=== PATIENT | female | born 1990 | race Caucasian/White ===

== ENCOUNTER 2017-01-27 09:28 | Emergency (ER) | payer OTHER ==
[2017-01-27] MEDS ORDERED: Sodium Chloride 0.9% 1000 ML 1,000 ML IV STA (09:49)
[2017-01-27] MEDS ORDERED: Sodium Chloride 0.9% 1000 ML 1,000 ML ONE (09:52)
--- NOTE | 2017-01-27 10:08 | ERPHSYRPT ---
- History of Present Illness Time Seen by Provider: 01/27/17 09:45 Source: patient, family (boyfriend) Patient Subjective Stated Complaint: pt co headache for 2 weeks, worse today with n/v,vomited x2 , frontal and neck pain, no injury, states has never had a headache like this, took tylenol Triage Nursing Assessment: pt alert, walked in, resp easy, skin w/d, holding head, Physician History: CC: headache Hx: 26 y/o patient of Dr Lantigua. She reports some headaches for the past 2 weeks. Sometimes right visual difficulty. No fever or chills. She has nausea. She is late on menses and worried she might be . She took home test which was negative. She has been using APAP which has not helped headaches. Headache worse today significantly. No N/T/W. Legs feel like jello. Severity: moderate Allergies/Adverse Reactions: tylenol Adverse Reaction (Uncoded 01/27/17 09:39) only liquid form Home Medications: No Reportable Medications [No Reported Medications] 01/27/17 [History] Hx Tetanus, Diphtheria Vaccination/Date Given: No Hx Influenza Vaccination/Date Given: No Hx Pneumococcal Vaccination/Date Given: No Immunizations Up to Date: Yes - Review of Systems Constitutional: Malaise, No Fever, No Chills Eyes: Vision Changes Ears, Nose, & Throat: No Symptoms Respiratory: No Symptoms Cardiac: No Chest Pain Abdominal/Gastrointestinal: Nausea, Vomiting (X2), No Abdominal Pain Skin: No Rash Neurological: Headache, No Dizziness, No Focal Weakness, No Parasthesia All Other Systems: Reviewed and Negative - Past Medical History Pertinent Past Medical History: Yes Neurological History: No Pertinent History ENT History: No Pertinent History Cardiac History: No Pertinent History Respiratory History: Asthma Endocrine Medical History: No Pertinent History Musculoskeletal History: No Pertinent History GI Medical History: No Pertinent History History: No Pertinent History Psycho-Social History: Depression Female Reproductive Disorders: Other Other Medical History: ovarian cyst - Past Surgical History Past Surgical History: Yes Neuro Surgical History: No Pertinent History Cardiac: No Pertinent History Respiratory: No Pertinent History Gastrointestinal: No Pertinent History Genitourinary: No Pertinent History Musculoskeletal: No Pertinent History Female Surgical History: No Pertinent History Other Surgical History: TONSILLECTOMY - Social History Smoking Status: Current every day smoker How long have you smoked: 1 Exposure to second hand smoke: Yes Drug Use: none Patient Lives Alone: No - Female History Hx Last Menstrual Period: december 21 Hx Now: Yes (36 WKS) - Nursing Vital Signs Nursing Vital Signs: Initial Vital Signs Temperature 97.9 F Pulse Rate 79 Respiratory Rate 14 Blood Pressure [Right Arm] 138/78 Pain Intensity 7 - Physical Exam General Appearance: alert Eye Exam: PERRL/EOMI Ears, Nose, Throat Exam: normal ENT inspection, moist mucous membranes Neck Exam: normal inspection, non-tender, supple, No meningismus Respiratory Exam: normal breath sounds, lungs clear Cardiovascular Exam: regular rate/rhythm, No murmur Gastrointestinal/Abdomen Exam: soft, No tenderness, No distention Extremity Exam: normal inspection, normal range of motion Neurologic Exam: alert, 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, cooperative, sensation nml, No motor deficits Skin Exam: warm, dry, No rash SpO2 Interpretation: normal SpO2: 97 Oxygen Delivery: Room Air - Course Nursing assessment & vital signs reviewed: Yes Ordered Tests: Active Orders 24 hr Category Date Time Status IV Insertion STAT Care 01/27/17 09:49 Active CBC W DIFF Stat Lab 01/27/17 10:10 Completed HCG QUALITATIVE,SERUM Stat Lab 01/27/17 10:10 Completed VENOUS BLOOD GAS Urgent Lab 01/27/17 10:10 Completed Medication Summary Discontinued Medications Generic Name Dose Route Start Last Admin Trade Name Berny PRN Reason Stop Dose Admin Diphenhydramine HCl 25 mg 01/27/17 10:48 01/27/17 10:58 Benadryl 50 Mg/Ml IV 01/27/17 10:49 25 mg STAT ONE Administration Diphenhydramine HCl Confirm 01/27/17 10:53 Benadryl 50 Mg/Ml Administered 01/27/17 10:54 Dose 50 mg .ROUTE .STK-MED ONE Sodium Chloride 1,000 mls @ 999 mls/hr 01/27/17 09:49 01/27/17 10:17 Sodium Chloride 0.9% 1000 Ml IV 01/27/17 10:49 999 mls/hr .[id number] STA Administration Sodium Chloride Confirm 01/27/17 09:52 Sodium Chloride 0.9% 1000 Ml Administered 01/27/17 09:53 Dose 1,000 mls @ ud .ROUTE .STK-MED ONE Ketorolac Tromethamine 30 mg 01/27/17 10:48 01/27/17 10:58 Toradol 30 Mg Injection IV 01/27/17 10:49 30 mg STAT ONE Administration Ketorolac Tromethamine Confirm 01/27/17 10:52 Toradol 30 Mg Injection Administered 01/27/17 10:53 Dose 30 mg .ROUTE .STK-MED ONE Metoclopramide HCl 10 mg 01/27/17 10:48 01/27/17 10:58 Reglan 10 Mg/2 Ml IV 01/27/17 10:49 10 mg STAT ONE Administration Metoclopramide HCl Confirm 01/27/17 10:53 Reglan 10 Mg/2 Ml Administered 01/27/17 10:54 Dose 10 mg .ROUTE .STK-MED ONE Lab/Rad Data: Laboratory Result Diagrams 01/27/17 10:10 Laboratory Results 01/27/17 01/27/17 01/27/17 Range/Units 10:10 10:10 10:10 WBC 11.6 H (4.0-10.5) K/mm3 RBC 5.33 (4.1-5.4) M/mm3 Hgb 15.7 (12.0-16.0) gm/dl Hct 46.7 (35-47) % MCV 87.6 (78-100) fl MCH 29.5 (26-32) pg MCHC 33.6 (32-36) g/dl RDW 13.3 (11.5-14.0) % Plt Count 228 (150-450) K/mm3 MPV 11.9 H (6-9.5) fl Gran % 72.5 H (36.0-66.0) % Lymphocytes % 17.7 L (24.0-44.0) % Monocytes % 6.6 (0.0-12.0) % Eosinophils % 2.9 (0.00-5.0) % Basophils % 0.3 (0.0-0.4) % Basophils # 0.04 (0-0.4) VBG pH 7.35 (7.32-7.42) VBG pCO2 at Pat Temp 51 (42-55) mm/Hg VBG pO2 at Pat Temp 31 (25-40) mm/Hg VBG HCO3 28.2 H (22-28) meq/L VBG O2 Sat (Felecia) 67.2 L (95-100) VBG Base Excess 1.4 (-2.0-2.0) VBG Hemoglobin 16.2 VBG Carboxyhemoglobin 3.0 (0.0-6.9) % T HGB POC Potassium 3.9 (3.5-5.1) Serum , Qual NEGATIVE (Negative) - Progress Progress Note: 01/27/17 11:43 Pt improved with IVF, benadryl, toradol, and reglan. She has supple neck. SAH not suspected. No sign of infection. Ambulated to BR. Drinking sprite. Nontoxic appearing. Informed negative HCG. Advised follow up with Dr Lantigua this week. Counseled pt/family regarding: lab results, diagnosis, need for follow-up - Departure Time of Disposition: 11:43 Departure Disposition: Home Clinical Impression: Headache, Missed menses Condition: Stable Critical Care Time: No Referrals: MUNA LANTIGUA MD [Primary Care Provider] - Instructions: Headache Additional Instructions: Rest and no driving today and stay with family. Return for fever, confusion, worsened headache or concerns. Follow up with Dr Lantigua this week.
[2017-01-27 10:14] LABS: VBG BASE EXCESS 1.4 (-2.0-2.0); VBG HCO3- 28.2 meq/L (22-28); VBG HEMOGLOBIN 16.2; VBG O2 SATURATION 67.2 (95-100); VBG POTASSIUM 3.9 (3.5-5.1); VBG pH 7.35 (7.32-7.42)
[2017-01-27 10:16] LABS: BASOPHIL % 0.3 % (0.0-0.4); Eosinophil % 2.9 % (0.00-5.0); Granulocytes % 72.5 % (36.0-66.0); Lymphocytes % 17.7 % (24.0-44.0); Mean Cell Volume 87.6 fl (78-100); Mean Corpuscular Hemoglobin 29.5 pg (26-32); Mean Platelet Volume 11.9 fl (6-9.5); Monocytes % 6.6 % (0.0-12.0); Platelet Count 228 K/mm3 (150-450); Red Blood Count 5.33 M/mm3 (4.1-5.4); Red Cell Distribution Width 13.3 % (11.5-14.0); White Blood Count 11.6 K/mm3 (4.0-10.5)
[2017-01-27] MEDS ORDERED: BENADRYL 50 MG/ML IV ONE (10:48)
[2017-01-27] MEDS ORDERED: TORAdol 30 mg Injection IV ONE (10:48)
[2017-01-27] MEDS ORDERED: Reglan 10 MG/2 ML IV ONE (10:48)
[2017-01-27] MEDS ORDERED: TORAdol 30 mg Injection ONE (10:52)
[2017-01-27] MEDS ORDERED: BENADRYL 50 MG/ML ONE (10:53)
[2017-01-27] MEDS ORDERED: Reglan 10 MG/2 ML ONE (10:53)
[2017-01-27 11:53] VITALS: BP 119/63; PULSE 69; O2SAT 100
== END 2017-01-27 11:52 | disposition home or self-care (01) ==
LOC: ED 09:28
DX: R51 Headache (principal); N91.2 Amenorrhea, unspecified
CPT/HCPCS: 36000; 36415; 82805; 84703; 85025; 96360; 96374; 96375; 99284; J1200; J1885

== ENCOUNTER 2017-01-31 18:54 | Emergency (ER) | payer OTHER ==
--- NOTE | 2017-01-31 19:19 | ERPHSYRPT ---
- History of Present Illness Time Seen by Provider: 01/31/17 19:05 Source: patient Exam Limitations: no limitations Physician History: FOUR DAYS AGO PT STARTED WITH A DIFFUSE HEADACHE AND VOMITING X2 WITHOUT BLOOD AND NO RIGHT PERIPHERAL VISION. YESTERDAY PT'S RIGHT HAND WAS NUMB FOR ABOUT 5 MINUTES. PT DENIES CHEST PAIN, SHORTNESS OF AIR, ABDOMINAL PAIN. THIS AFTERNOON PT HAD AN MRI OF THE BRAIN WHICH SHOWED POSSIBLE LEFT VERTEBRAL ARTERY DISSECTION. Allergies/Adverse Reactions: tylenol Adverse Reaction (Uncoded 01/27/17 09:39) only liquid form Home Medications: No Reportable Medications [No Reported Medications] 01/27/17 [History] Hx Tetanus, Diphtheria Vaccination/Date Given: No Hx Influenza Vaccination/Date Given: No Hx Pneumococcal Vaccination/Date Given: No - Review of Systems Constitutional: No Fever Eyes: Vision Changes Respiratory: No Cough, No Dyspnea Cardiac: No Chest Pain Abdominal/Gastrointestinal: Vomiting, No Abdominal Pain Neurological: Headache All Other Systems: Reviewed and Negative - Past Medical History Pertinent Past Medical History: Yes Neurological History: No Pertinent History ENT History: No Pertinent History Cardiac History: No Pertinent History Respiratory History: Asthma Endocrine Medical History: No Pertinent History Musculoskeletal History: No Pertinent History GI Medical History: No Pertinent History History: No Pertinent History Psycho-Social History: Depression Female Reproductive Disorders: Other Other Medical History: ovarian cyst - Past Surgical History Past Surgical History: Yes Neuro Surgical History: No Pertinent History Cardiac: No Pertinent History Respiratory: No Pertinent History Gastrointestinal: No Pertinent History Genitourinary: No Pertinent History Musculoskeletal: No Pertinent History Female Surgical History: No Pertinent History Other Surgical History: TONSILLECTOMY - Social History Smoking Status: Current every day smoker How long have you smoked: 1 Exposure to second hand smoke: Yes Drug Use: none Patient Lives Alone: No - Female History Hx Now: Yes (36 WKS) - Nursing Vital Signs Nursing Vital Signs: Initial Vital Signs Temperature 98.0 F Temperature Source Oral Pulse Rate 83 Respiratory Rate 16 Blood Pressure [Right Arm] 130/74 Pain Intensity 0 - Physical Exam General Appearance: alert Eye Exam: PERRL/EOMI, eyes nml inspection, other (GOOD PERIPHERAL VISION BILATERALLY) Ears, Nose, Throat Exam: pharynx normal, moist mucous membranes Neck Exam: normal inspection, full range of motion, No carotid bruit Respiratory Exam: normal breath sounds, lungs clear Cardiovascular Exam: normal heart sounds Gastrointestinal/Abdominal Exam: soft, normal bowel sounds Back Exam: normal range of motion Extremity Exam: normal inspection, normal range of motion Mental Status Exam: alert, 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, cooperative 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 animal 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 Exam: normal hearing, normal speech, PERRL, tongue midline, No facial droop Motor/Sensory Exam: no motor deficit, no sensory deficit, negative Babinski's sign Skin Exam: warm, dry - Course Nursing assessment & vital signs reviewed: Yes Ordered Tests: Active Orders 24 hr Category Date Time Status IV Insertion STAT Care 01/31/17 19:23 Active AMYLASE Stat Lab 01/31/17 19:35 Received CBC W DIFF Stat Lab 01/31/17 19:35 Completed CMP Stat Lab 01/31/17 19:35 Received HCG QUALITATIVE,SERUM Stat Lab 01/31/17 19:35 Received LIPASE Stat Lab 01/31/17 19:35 Received PROTIME WITH INR Stat Lab 01/31/17 19:35 Received PTT Stat Lab 01/31/17 19:35 Received UA Stat Lab 01/31/17 19:23 Ordered Medication Summary Generic Name Dose Route Start Last Admin Trade Name Freq PRN Reason Stop Dose Admin Sodium Chloride 1,000 mls @ 80 mls/hr 01/31/17 19:30 01/31/17 19:48 Sodium Chloride 0.9% 1000 Ml IV 03/02/17 19:29 80 mls/hr .[id number] PREET Administration Discontinued Medications Generic Name Dose Route Start Last Admin Trade Name Freq PRN Reason Stop Dose Admin Labetalol HCl 5 mg 01/31/17 19:49 Trandate 20 Mg/5 Ml Syringe IV 01/31/17 19:50 STAT ONE Labetalol HCl Confirm 01/31/17 19:50 Trandate 20 Mg/5 Ml Syringe Administered 01/31/17 19:51 Dose 20 mg IV .STK-MED ONE Lab/Rad Data: Laboratory Result Diagrams 01/31/17 19:35 Laboratory Results 01/31/17 Range/Units 19:35 WBC 13.6 H (4.0-10.5) K/mm3 RBC 5.36 (4.1-5.4) M/mm3 Hgb 15.8 (12.0-16.0) gm/dl Hct 46.7 (35-47) % MCV 87.1 (78-100) fl MCH 29.5 (26-32) pg MCHC 33.8 (32-36) g/dl RDW 13.2 (11.5-14.0) % Plt Count 293 (150-450) K/mm3 MPV 11.7 H (6-9.5) fl Gran % 68.2 H (36.0-66.0) % Lymphocytes % 23.7 L (24.0-44.0) % Monocytes % 4.9 (0.0-12.0) % Eosinophils % 2.9 (0.00-5.0) % Basophils % 0.3 (0.0-0.4) % Basophils # 0.04 (0-0.4) - Progress Discussed with Dr.: Other (SPOKE WITH DR JOLLEY(NEUROSURGEON)([id number]) WHO STATED PT NEEDS TO BE TRANSFERRED TO [facility]. SPOKE WITH DR KRAFT( NEUROLOGIST)([id number]) WHO ACCEPTED PT FOR TRANSFER TO [facility].) - Departure Time of Disposition: 19:54 Departure Disposition: Transfer ([facility]) Clinical Impression: HEADACHE, POSSIBLE LEFT VERTEBRAL ARTERY DISSECTION Condition: Stable Critical Care Time: Yes Critical Care Time(excluding separately billable procedures): 30-74 minutes Referrals: MUNA LANTIGUA MD [Primary Care Provider] - Instructions: Headache
[2017-01-31] MEDS ORDERED: Sodium Chloride 0.9% 1000 ML 1,000 ML IV SCH (19:30)
[2017-01-31 19:39] VITALS: O2SAT 97
[2017-01-31] MEDS ORDERED: Sodium Chloride 0.9% 1000 ML 1,000 ML ONE (19:44)
[2017-01-31 19:45] LABS: BASOPHIL % 0.3 % (0.0-0.4); Eosinophil % 2.9 % (0.00-5.0); Granulocytes % 68.2 % (36.0-66.0); Lymphocytes % 23.7 % (24.0-44.0); Mean Cell Volume 87.1 fl (78-100); Mean Corpuscular Hemoglobin 29.5 pg (26-32); Mean Platelet Volume 11.7 fl (6-9.5); Monocytes % 4.9 % (0.0-12.0); Platelet Count 293 K/mm3 (150-450); Red Blood Count 5.36 M/mm3 (4.1-5.4); Red Cell Distribution Width 13.2 % (11.5-14.0); White Blood Count 13.6 K/mm3 (4.0-10.5)
[2017-01-31] MEDS ORDERED: TRANDATE 20 MG/5 ML SYRINGE IV ONE ×2 (19:49→19:50)
[2017-01-31 20:06] VITALS: BP 136/106; PULSE 115
[2017-01-31 20:07] LABS: ALBUMIN 4.1 g/dL (3.4-5.0); ALKALINE PHOSPHATASE 68 U/L (46-116); ANION GAP 13.5 MEQ/L (5-15); BILIRUBIN,TOTAL 0.2 mg/dL (0.2-1.0); BLOOD UREA NITROGEN 11 mg/dL (9-20); CHLORIDE 102 mEq/L (98-107); Carbon Dioxide 28.7 mEq/L (21-32); Glucose 119 MG/DL (70-110); LIPASE 122 U/L (73-393); Potassium 3.7 mEq/L (3.5-5.1); SGOT/AST 22 U/L (15-37); SGPT/ALT 22 U/L (12-78); SODIUM 141 mEq/L (136-145); Total Protein 8.7 gm/dL (6.4-8.2)
[2017-01-31 20:08] LABS: INR 0.94 (0.8-3.0); PROTIME 10.6 SECONDS (9.95-12.35)
[2017-01-31 20:09] LABS: PTT 28.7 SECONDS (25.3-37.0)
== END 2017-01-31 20:14 | disposition short-term general hospital (02) ==
LOC: ED 18:54
DX: R51 Headache (principal); R11.10 Vomiting, unspecified; H53.9 Unspecified visual disturbance
CPT/HCPCS: 36000; 36415; 80053; 82150; 83690; 84703; 85025; 85610; 85730; 96374; 99284

== ENCOUNTER 2017-03-10 16:27 | Emergency (ER) | payer OTHER ==
[2017-03-10 16:40] VITALS: O2SAT 97
[2017-03-10] MEDS ORDERED: Hydromorphone 1 mg/ml Ampule IM STA (16:53)
[2017-03-10] MEDS ORDERED: Phenergan 25 MG INJ IM ONE (16:55)
--- NOTE | 2017-03-10 17:03 | ERPHSYRPT ---
- History of Present Illness Time Seen by Provider: 03/10/17 16:45 Source: patient Exam Limitations: clinical condition Patient Subjective Stated Complaint: patient had a stroke a mojnth ago and has had headaches ever since Triage Nursing Assessment: olimpia alert and orietned handgrips equal bialteral lower leg strngth normal range bilateral , lung soudns clear, olimpia was diagnosed via mri with stroke on january [address] [facility] where she was released but since then has been having migraine headaches. has tramadol at home for headaches but its not workign this time around. Physician History: PATIENT WITH HISTORY OF POSSIBLE VERTEBRAL ARTERY DISSECTION ON 01/31/17 TRANSFERRED TO [facility] UNDER THE CARE OF NEUROLOGY SERVICE, DEVELOPED A STROKE AND PLACED ONTO XARELTO. NOW COMPLAINS OF DAILY HEADACHES AND HAS NO RELIEF WITH ULTRAM. DENIES VISUAL CHANGES, FEVER, NECK STIFFNESS. Timing/Duration: week(s) Quality: throbbing Head Pain Location: global Severity of Pain-Max: moderate Severity of Pain-Current: moderate Recent Head Trauma: frequent headaches (RECENT CVA) Modifying Factors: Improves With: exposure to light Associated Symptoms: denies symptoms Previous symptoms: same symptoms as today Allergies/Adverse Reactions: tylenol Adverse Reaction (Uncoded 01/27/17 09:39) only liquid form Home Medications: Atorvastatin Calcium [Lipitor] 10 mg PO DAILY 03/10/17 [History] Rivaroxaban [Xarelto] 20 mg PO DAILY 03/10/17 [History] Tramadol HCl 50 mg [Ultram 50 mg] 50 mg PO Q4-6HPRN PRN 03/10/17 [History] Hx Tetanus, Diphtheria Vaccination/Date Given: Yes Hx Influenza Vaccination/Date Given: No Hx Pneumococcal Vaccination/Date Given: No Immunizations Up to Date: Yes - Past Medical History Pertinent Past Medical History: Yes Neurological History: No Pertinent History ENT History: No Pertinent History Cardiac History: No Pertinent History Respiratory History: Asthma Endocrine Medical History: No Pertinent History Musculoskeletal History: No Pertinent History GI Medical History: No Pertinent History History: No Pertinent History Psycho-Social History: Depression Female Reproductive Disorders: Other Other Medical History: ovarian cyst - Past Surgical History Past Surgical History: Yes Neuro Surgical History: No Pertinent History Cardiac: No Pertinent History Respiratory: No Pertinent History Gastrointestinal: No Pertinent History Genitourinary: No Pertinent History Musculoskeletal: No Pertinent History Female Surgical History: No Pertinent History Other Surgical History: TONSILLECTOMY - Social History Smoking Status: Current every day smoker How long have you smoked: 1 Exposure to second hand smoke: Yes Drug Use: none Patient Lives Alone: No - Female History Hx Now: Yes (36 WKS) - Nursing Vital Signs Nursing Vital Signs: Initial Vital Signs Temperature 98.6 F Temperature Source Oral Pulse Rate 100 Respiratory Rate 18 Blood Pressure [Right Arm] 146/78 Pain Intensity 7 - Physical Exam SpO2: 97 Oxygen Delivery: Room Air - CT Exams Head CT Interpretation: Tele-radiologist Report (LOW DENSITY IN THE POSTERIOR MEDIAL LEFT OCCIPITAL LOBE IS CONSISTENT WITH ENCEPHALOMALACIA) Ordered Tests: Active Orders 24 hr Category Date Time Status HEAD WITHOUT CONTRAST [CT] Stat Exams 03/10/17 16:55 Taken Medication Summary Discontinued Medications Generic Name Dose Route Start Last Admin Trade Name Freq PRN Reason Stop Dose Admin Hydromorphone HCl 1 mg 03/10/17 16:53 03/10/17 17:29 Hydromorphone 1 Mg/Ml Ampule IM 03/10/17 16:54 1 mg STAT STA Administration Hydromorphone HCl Confirm 03/10/17 17:28 Hydromorphone 1 Mg/Ml Ampule Administered 03/10/17 17:29 Dose 1 mg .ROUTE .STK-MED ONE Promethazine HCl 25 mg 03/10/17 16:55 03/10/17 17:29 Phenergan 25 Mg Inj IM 03/10/17 16:56 25 mg STAT ONE Administration Promethazine HCl Confirm 03/10/17 17:27 Phenergan 25 Mg Inj Administered 03/10/17 17:28 Dose 25 mg .ROUTE .STK-MED ONE - Progress Progress: improved Progress Note: 03/10/17 18:20 PATIENT GIVEN DILAUDID 1MG/PHENERGAN 12.5MG IM Counseled pt/family regarding: diagnosis, need for follow-up, rad results - Departure Time of Disposition: 18:27 Departure Disposition: Home Clinical Impression: ACUTE MIGRAINE CEPHALGIA Condition: Stable Critical Care Time: No Instructions: Headache Additional Instructions: FOLLOWUP WITH PRIMARY CARE PHYSICIAN FOR EVALUATION AND TREATMENT AND CONSULTATION WITH YOUR NEUROLOGIST CONCERNING PAIN MANAGEMENT. TYLENOL #3 EVERY 4 HOURS FOR PAIN NEEDED. Prescriptions: Codeine Phosphate/APAP #3 [Tylenol #3 Tablet] 1 tab PO Q4H PRN PRN #12 tablet PRN Reason: Pain
[2017-03-10] MEDS ORDERED: Phenergan 25 MG INJ ONE (17:27)
[2017-03-10] MEDS ORDERED: Hydromorphone 1 mg/ml Ampule ONE (17:28)
[2017-03-10 18:35] VITALS: BP 111/65; PULSE 62
--- NOTE | 2017-03-11 08:51 | XRAY ---
Indication: Migraine headache. Patient reports previous CVA. Multiple contiguous axial images obtained through the head without contrast as ordered. Comparison: None Small focus of encephalomalacia in the left occipital lobe from previous infarct. No acute intracranial hemorrhage, hydrocephalus, or mass effect. Fourth ventricle is midline. No hydrocephalus. Small dense linear calcification in the high right parietal lobe posteriorly appears benign and either dural calcification or sequela of previous infection. Vora-white matter differentiation preserved. Bony calvarium intact. Visualized paranasal sinuses and mastoid air cells are pneumatized and clear. Impression: Old left occipital lobe infarct. Benign appearing right parietal linear calcification. No acute intracranial abnormalities. Comment: Preliminary interpretation was made by [facility]. No critical discrepancy. CT DI 66.81
== END 2017-03-10 18:34 | disposition home or self-care (01) ==
LOC: ED 16:27
DX: G43.909 Migraine, unspecified, not intractable, without status migrainosus (principal)
CPT/HCPCS: 70450; 96372; 99284; J1170; J2550

== ENCOUNTER 2017-06-18 06:56 | Emergency (ER) | payer OTHER ==
[2017-06-18] MEDS ORDERED: Sodium Chloride 0.9% 1000 ML 1,000 ML ONE ×4 (07:03→09:17)
[2017-06-18] MEDS ORDERED: Sodium Chloride 0.9% 1000 ML 2,000 ML ONE (07:12)
[2017-06-18 07:14] LABS: BASOPHIL % 0.2 % (0.0-0.4); Eosinophil % 1.7 % (0.00-5.0); Granulocytes % 57.3 % (36.0-66.0); Lymphocytes % 33.3 % (24.0-44.0); Mean Cell Volume 87.2 fl (78-100); Mean Corpuscular Hemoglobin 29.6 pg (26-32); Mean Platelet Volume 11.3 fl (6-9.5); Monocytes % 7.5 % (0.0-12.0); Platelet Count 246 K/mm3 (150-450); Red Blood Count 4.77 M/mm3 (4.1-5.4); Red Cell Distribution Width 13.6 % (11.5-14.0); White Blood Count 8.6 K/mm3 (4.0-10.5)
[2017-06-18] MEDS ORDERED: MORPHINE SULFATE 4 MG INJ IV ONE ×3 (07:23→08:18)
[2017-06-18] MEDS ORDERED: MORPHINE SULFATE 4 MG INJ ONE ×3 (07:24→08:21)
[2017-06-18] MEDS ORDERED: Sodium Chloride 0.9% 1000 ML 1,000 ML IV STA ×4 (07:29→20:13)
[2017-06-18 07:31] LABS: INR 1.02 (0.8-3.0); PROTIME 11.3 SECONDS (9.95-12.35)
--- NOTE | 2017-06-18 07:31 | ERPHSYRPT ---
- History of Present Illness Time Seen by Provider: 06/18/17 07:22 Source: patient Exam Limitations: no limitations Patient Subjective Stated Complaint: pt states this morning she woke up with abdominal cramping. pt states she is 13 weeks . states she is taking lovenox injections bid for a ishemic stroke she had in january. pt states she began bleeding at onset of abdominal cramping. Triage Nursing Assessment: pt pink, warm, dry. bleeding present at this time. abdomen soft, obese. Physician History: 26 y/o white female who states she is 13 weeks ega with hx cva, depression on lovenox arrives with complaints of feeling "like my water broke" then large amount of vaginal bleeding onset 05:00 am patient with large amount of vaginal bleeding Timing/Duration: today (05:00) Severity: severe Modifying Factors: Improves With: nothing Associated Symptoms: other (large amount of vaginal bleeding ), No nausea, No vomiting, No abdominal pain, No shortness of breath, No heartburn, No diaphoresis, No cough, No chills, No chest pain, No fever, No headaches, No loss of appetite, No malaise, No rash, No syncope, No seizure, No weakness Allergies/Adverse Reactions: acetaminophen [From Tylenol-Codeine] Allergy (Verified 06/18/17 07:09) codeine [From Tylenol-Codeine] Allergy (Verified 06/18/17 07:09) Home Medications: Enoxaparin Sodium [Lovenox] 100 mg SQ BID 06/18/17 [History] Hx Tetanus, Diphtheria Vaccination/Date Given: Yes (up to date) Hx Influenza Vaccination/Date Given: No Hx Pneumococcal Vaccination/Date Given: No Immunizations Up to Date: Yes - Review of Systems Constitutional: No Fever, No Chills Eyes: No Symptoms Ears, Nose, & Throat: No Symptoms Respiratory: No Cough, No Dyspnea Cardiac: No Chest Pain, No Edema, No Syncope Abdominal/Gastrointestinal: Abdominal Pain Genitourinary Symptoms: Vaginal Bleeding Musculoskeletal: No Back Pain, No Neck Pain Skin: No Rash Neurological: No Dizziness, No Focal Weakness, No Sensory Changes Psychological: No Symptoms Endocrine: No Symptoms All Other Systems: Reviewed and Negative - Past Medical History Pertinent Past Medical History: Yes Neurological History: Stroke ENT History: No Pertinent History Cardiac History: No Pertinent History Respiratory History: Asthma Endocrine Medical History: No Pertinent History Musculoskeletal History: No Pertinent History GI Medical History: No Pertinent History History: No Pertinent History Psycho-Social History: Depression Female Reproductive Disorders: Other Other Medical History: ovarian cyst - Past Surgical History Past Surgical History: Yes Neuro Surgical History: No Pertinent History Cardiac: No Pertinent History Respiratory: No Pertinent History Gastrointestinal: No Pertinent History Genitourinary: No Pertinent History Musculoskeletal: No Pertinent History Female Surgical History: No Pertinent History Other Surgical History: TONSILLECTOMY - Social History Smoking Status: Former smoker How long have you smoked: 1 Exposure to second hand smoke: No Drug Use: none Patient Lives Alone: No - Female History Hx Last Menstrual Period: march 2017 Hx Now: Yes (36 WKS) - Nursing Vital Signs Nursing Vital Signs: Initial Vital Signs Temperature 97.9 F 06/18/17 06:58 Pulse Rate 123 H 06/18/17 06:58 Respiratory Rate 20 06/18/17 06:58 Blood Pressure 141/88 06/18/17 06:58 O2 Sat by Pulse Oximetry 98 06/18/17 06:58 Pain Scale Pain Intensity 6 - Physical Exam General Appearance: moderate distress Eye Exam: PERRL/EOMI, eyes nml inspection Ears, Nose, Throat Exam: normal ENT inspection, TMs normal, pharynx normal, moist mucous membranes Neck Exam: normal inspection, non-tender, supple, full range of motion Respiratory Exam: normal breath sounds, lungs clear, No respiratory distress Cardiovascular Exam: tachycardia, capillary refill <2 sec Gastrointestinal/Abdomen Exam: soft, normal bowel sounds, No tenderness, No mass Pelvic Exam: other (large amount of vaginal bleeding) Back Exam: normal inspection, normal range of motion, No CVA tenderness, No vertebral tenderness Extremity Exam: normal inspection, normal range of motion, pelvis stable Neurologic Exam: alert, 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, cooperative, normal mood/affect, nml cerebellar function, nml station & gait, sensation nml, No motor deficits Skin Exam: normal color, warm, dry, No rash Lymphatic Exam: No adenopathy SpO2 Interpretation: normal (98%) SpO2: 98 Oxygen Delivery: Room Air - Course Nursing assessment & vital signs reviewed: Yes - Radiology Ultrasound Exam Pelvis Ultrasound: discussed w/radiologist (pelvis ultrasound: Impression 1 sonographic findings consistent with spontaneous miscarrage in progress.No viable fetus or cardiac activity is identified cannot exclude some remainin products of conception within the endometrial canal. Significant hyperechoic clot/hemorrhage seen within the uterus and the level of the cervix. 2. Both maternal ovaries appear unremarkable. No free intraperitoneal fluid is seen.) Ordered Tests: Active Orders 24 hr Category Date Time Status Armor Reconnaissance Specialist STAT Care 06/18/17 07:32 Active IV Insertion STAT Care 06/18/17 07:29 Active IV Insertion-2nd Peripheral STAT Care 06/18/17 07:29 Active Oxygen-ED Only NASAL CANNULA 2 lpm Care 06/18/17 07:32 Active Pulse Oximetry (ED) STAT Care 06/18/17 07:32 Active cath [Cath for Specimen-Straight] STAT Care 06/18/17 07:29 Active OB <14 WKS 1ST GESTATION [US] Stat Exams 06/18/17 07:00 Completed AMYLASE Stat Lab 06/18/17 07:00 Completed CBC W DIFF Stat Lab 06/18/17 07:00 Completed CMP Stat Lab 06/18/17 07:00 Completed CULTURE,URINE Stat Lab 06/18/17 06:59 Received HCG, Quantitative (Inhouse) Stat Lab 06/18/17 07:21 Completed LIPASE Stat Lab 06/18/17 07:00 Completed MAGNESIUM Stat Lab 06/18/17 07:00 Completed PROTIME WITH INR Stat Lab 06/18/17 07:00 Completed PTT Stat Lab 06/18/17 07:00 Completed UA W/ MICROSCOPIC Stat Lab 06/18/17 06:59 Completed Medication Summary Generic Name Dose Route Start Last Admin Trade Name Freq PRN Reason Stop Dose Admin Sodium Chloride 1,000 mls @ 100 mls/hr 06/18/17 08:00 06/18/17 07:56 Sodium Chloride 0.9% 1000 Ml IV 07/18/17 07:59 100 mls/hr .Q10H PREET Administration Discontinued Medications Generic Name Dose Route Start Last Admin Trade Name Freq PRN Reason Stop Dose Admin Sodium Chloride Confirm 06/18/17 07:03 Sodium Chloride 0.9% 1000 Ml Administered 06/18/17 07:04 Dose 1,000 mls @ ud .ROUTE .STK-MED ONE Sodium Chloride Confirm 06/18/17 07:12 Sodium Chloride 0.9% 1000 Ml Administered 06/18/17 07:13 Dose 2,000 mls @ ud .ROUTE .STK-MED ONE Sodium Chloride 1,000 mls @ 999 mls/hr 06/18/17 07:29 06/18/17 07:31 Sodium Chloride 0.9% 1000 Ml IV 06/18/17 08:29 999 mls/hr .Q1H1M STA Administration Sodium Chloride 1,000 mls @ 999 mls/hr 06/18/17 07:30 06/18/17 07:31 Sodium Chloride 0.9% 1000 Ml IV 06/18/17 08:30 999 mls/hr .Q1H1M STA Administration Sodium Chloride Confirm 06/18/17 07:43 Sodium Chloride 0.9% 1000 Ml Administered 06/18/17 07:44 Dose 1,000 mls @ ud .ROUTE .STK-MED ONE Morphine Sulfate 4 mg 06/18/17 07:23 06/18/17 07:25 Morphine Sulfate 4 Mg Inj IV 06/18/17 07:24 4 mg STAT ONE Administration Morphine Sulfate Confirm 06/18/17 07:24 Morphine Sulfate 4 Mg Inj Administered 06/18/17 07:25 Dose 4 mg .ROUTE .STK-MED ONE Morphine Sulfate 4 mg 06/18/17 07:51 06/18/17 07:56 Morphine Sulfate 4 Mg Inj IV 06/18/17 07:52 4 mg STAT ONE Administration Morphine Sulfate Confirm 06/18/17 07:53 Morphine Sulfate 4 Mg Inj Administered 06/18/17 07:54 Dose 4 mg .ROUTE .STK-MED ONE Morphine Sulfate 4 mg 06/18/17 08:18 06/18/17 08:21 Morphine Sulfate 4 Mg Inj IV 06/18/17 08:19 4 mg STAT ONE Administration Morphine Sulfate Confirm 06/18/17 08:21 Morphine Sulfate 4 Mg Inj Administered 06/18/17 08:22 Dose 4 mg .ROUTE .STK-MED ONE Lab/Rad Data: Laboratory Result Diagrams 06/18/17 07:00 06/18/17 07:00 Laboratory Results 06/18/17 06/18/17 06/18/17 Range/Units 07:21 07:00 07:00 WBC (4.0-10.5) K/mm3 RBC (4.1-5.4) M/mm3 Hgb (12.0-16.0) gm/dl Hct (35-47) % MCV (78-100) fl MCH (26-32) pg MCHC (32-36) g/dl RDW (11.5-14.0) % Plt Count (150-450) K/mm3 MPV (6-9.5) fl Gran % (36.0-66.0) % Lymphocytes % (24.0-44.0) % Monocytes % (0.0-12.0) % Eosinophils % (0.00-5.0) % Basophils % (0.0-0.4) % Basophils # (0-0.4) INR (0.8-3.0) APTT (25.3-37.0) SECONDS Sodium (136-145) mEq/L Potassium (3.5-5.1) mEq/L Chloride (98-107) mEq/L Carbon Dioxide (21-32) mEq/L Anion Gap (5-15) MEQ/L BUN (9-20) mg/dL Creatinine (0.55-1.30) mg/dl Estimated GFR ML/MIN Glucose (70-110) MG/DL Calcium (8.5-10.1) mg/dL Magnesium (1.8-2.4) mg/dL Total Bilirubin (0.2-1.0) mg/dL AST (15-37) U/L ALT (12-78) U/L Alkaline Phosphatase (46-116) U/L Serum Total Protein (6.4-8.2) gm/dL Albumin (3.4-5.0) g/dL Amylase (25-115) U/L Lipase (73-393) U/L Beta HCG, Quant 4888 H (0-6) IU/L Ur Collection Type Urine Color (YELLOW) Urine Appearance (CLEAR) Urine pH (5-6) Ur Specific [place] (1.005-1.025) Urine Protein (Negative) Urine Ketones (NEGATIVE) Urine Blood (0-5) Kermit/ul Urine Nitrite (NEGATIVE) Urine Bilirubin (NEGATIVE) Urine Urobilinogen (0-1) mg/dL Ur Leukocyte Esterase (NEGATIVE) Urine Microscopic RBC (0-2) /HPF Urine Microscopic WBC (0-5) /HPF Ur Epithelial Cells (FEW) /HPF Urine Bacteria (NEGATIVE) /HPF Urine Mucus (NEGATIVE) /HPF Urine Glucose (NEGATIVE) mg/dL Specimen Received ABO Group Rh Factor Antibody Screen (NEGATIVE) Crossmatch COMPATIBLE COMPATIBLE (COMPATIBLE) 06/18/17 06/18/17 06/18/17 Range/Units 07:00 07:00 07:00 WBC (4.0-10.5) K/mm3 RBC (4.1-5.4) M/mm3 Hgb (12.0-16.0) gm/dl Hct (35-47) % MCV (78-100) fl MCH (26-32) pg MCHC (32-36) g/dl RDW (11.5-14.0) % Plt Count (150-450) K/mm3 MPV (6-9.5) fl Gran % (36.0-66.0) % Lymphocytes % (24.0-44.0) % Monocytes % (0.0-12.0) % Eosinophils % (0.00-5.0) % Basophils % (0.0-0.4) % Basophils # (0-0.4) INR 1.02 (0.8-3.0) APTT 25.3 (25.3-37.0) SECONDS Sodium (136-145) mEq/L Potassium (3.5-5.1) mEq/L Chloride (98-107) mEq/L Carbon Dioxide (21-32) mEq/L Anion Gap (5-15) MEQ/L BUN (9-20) mg/dL Creatinine (0.55-1.30) mg/dl Estimated GFR ML/MIN Glucose (70-110) MG/DL Calcium (8.5-10.1) mg/dL Magnesium (1.8-2.4) mg/dL Total Bilirubin (0.2-1.0) mg/dL AST (15-37) U/L ALT (12-78) U/L Alkaline Phosphatase (46-116) U/L Serum Total Protein (6.4-8.2) gm/dL Albumin (3.4-5.0) g/dL Amylase (25-115) U/L Lipase (73-393) U/L Beta HCG, Quant (0-6) IU/L Ur Collection Type Urine Color (YELLOW) Urine Appearance (CLEAR) Urine pH (5-6) Ur Specific [place] (1.005-1.025) Urine Protein (Negative) Urine Ketones (NEGATIVE) Urine Blood (0-5) Kermit/ul Urine Nitrite (NEGATIVE) Urine Bilirubin (NEGATIVE) Urine Urobilinogen (0-1) mg/dL Ur Leukocyte Esterase (NEGATIVE) Urine Microscopic RBC (0-2) /HPF Urine Microscopic WBC (0-5) /HPF Ur Epithelial Cells (FEW) /HPF Urine Bacteria (NEGATIVE) /HPF Urine Mucus (NEGATIVE) /HPF Urine Glucose (NEGATIVE) mg/dL Specimen Received ABO Group A Rh Factor POSITIVE Antibody Screen NEGATIVE (NEGATIVE) Crossmatch COMPATIBLE COMPATIBLE (COMPATIBLE) 06/18/17 06/18/17 06/18/17 Range/Units 07:00 07:00 06:59 WBC 8.6 (4.0-10.5) K/mm3 RBC 4.77 (4.1-5.4) M/mm3 Hgb 14.1 (12.0-16.0) gm/dl Hct 41.6 (35-47) % MCV 87.2 (78-100) fl MCH 29.6 (26-32) pg MCHC 33.9 (32-36) g/dl RDW 13.6 (11.5-14.0) % Plt Count 246 (150-450) K/mm3 MPV 11.3 H (6-9.5) fl Gran % 57.3 (36.0-66.0) % Lymphocytes % 33.3 (24.0-44.0) % Monocytes % 7.5 (0.0-12.0) % Eosinophils % 1.7 (0.00-5.0) % Basophils % 0.2 (0.0-0.4) % Basophils # 0.02 (0-0.4) INR (0.8-3.0) APTT (25.3-37.0) SECONDS Sodium 140 (136-145) mEq/L Potassium 3.8 (3.5-5.1) mEq/L Chloride 103 (98-107) mEq/L Carbon Dioxide 21.5 (21-32) mEq/L Anion Gap 19.0 H (5-15) MEQ/L BUN 6 L (9-20) mg/dL Creatinine 0.74 (0.55-1.30) mg/dl Estimated GFR > 60 ML/MIN Glucose 109 (70-110) MG/DL Calcium 9.1 (8.5-10.1) mg/dL Magnesium 1.5 L (1.8-2.4) mg/dL Total Bilirubin 0.20 (0.2-1.0) mg/dL AST 33 (15-37) U/L ALT 32 (12-78) U/L Alkaline Phosphatase 51 (46-116) U/L Serum Total Protein 7.5 (6.4-8.2) gm/dL Albumin 3.3 L (3.4-5.0) g/dL Amylase 29 (25-115) U/L Lipase 99 (73-393) U/L Beta HCG, Quant (0-6) IU/L Ur Collection Type CATH Urine Color YELLOW (YELLOW) Urine Appearance CLEAR (CLEAR) Urine pH 5.0 (5-6) Ur Specific [place] 1.020 (1.005-1.025) Urine Protein NEGATIVE (Negative) Urine Ketones TRACE (NEGATIVE) Urine Blood 250 (0-5) Kermit/ul Urine Nitrite NEGATIVE (NEGATIVE) Urine Bilirubin NEGATIVE (NEGATIVE) Urine Urobilinogen NORMAL (0-1) mg/dL Ur Leukocyte Esterase NEGATIVE (NEGATIVE) Urine Microscopic RBC 5-10 (0-2) /HPF Urine Microscopic WBC 2-5 (0-5) /HPF Ur Epithelial Cells MODERATE (FEW) /HPF Urine Bacteria FEW (NEGATIVE) /HPF Urine Mucus MANY (NEGATIVE) /HPF Urine Glucose NEGATIVE (NEGATIVE) mg/dL Specimen Received 06/18/17 0700 ABO Group Rh Factor Antibody Screen (NEGATIVE) Crossmatch (COMPATIBLE) - Progress Progress: improved Progress Note: 06/18/17 08:43 26-year-old white female 3 para 1 with estimated gestational age of 13 weeks who is on Lovenox with a history of CVA as well as asthma. Arrives with complaint of a sudden onset of vaginal bleeding at approximately 5: 00 this morning on arrival patient with a marked amount of vaginal bleeding. Patient is tachycardic patient with initial hemoglobin and hematocrit of 14.1 and 41.6 Patient was a pelvic ultrasound no pole noticed large amount of the blood clot in uterus and cervix no lesions noted in the ovaries. Patient given IV normal saline typed and crossmatched Dr. Lantigua contacted Dr. Lantigua came down states he pulled a moderate amount of lots out of the area vaginal area patient with slow down bleeding but continued with moderate bleeding. Patient's quantitative hCG 4888. Patient did have heart rate as high as 130s to 150s currently 119 blood pressure 111/78 2 units of blood have been ordered Patient has recieved 3 liters normal saline , 4 mg morphine x [address] Lantigua feels like the patient should be transferred to [facility] Patient did feel like she passed some type of tissue at home. Call placed to one call at [facility] patient receiving IV normal saline and blood 06/18/17 09:53 Dr burger at [facility] contacted Case was discussed with him. He accepted patient for transfer. - Departure Time of Disposition: 09:14 Departure Disposition: Transfer ([facility]) Clinical Impression: Spontaneous complicated by delayed or excessive hemorrhage Condition: Fair Critical Care Time: No Referrals: MUNA LANTIGUA MD [Primary Care Provider] -
[2017-06-18 07:34] LABS: PTT 25.3 SECONDS (25.3-37.0)
[2017-06-18 07:41] LABS: ALBUMIN 3.3 g/dL (3.4-5.0); ALKALINE PHOSPHATASE 51 U/L (46-116); BLOOD UREA NITROGEN 6 mg/dL (9-20); CHLORIDE 103 mEq/L (98-107); Carbon Dioxide 21.5 mEq/L (21-32); Glucose 109 MG/DL (70-110); LIPASE 99 U/L (73-393); MAGNESIUM 1.5 mg/dL (1.8-2.4); Potassium 3.8 mEq/L (3.5-5.1); SGOT/AST 33 U/L (15-37); SGPT/ALT 32 U/L (12-78); SODIUM 140 mEq/L (136-145); Total Protein 7.5 gm/dL (6.4-8.2)
[2017-06-18 07:46] LABS: Bilirubin NEGATIVE (NEGATIVE); Blood 250 Ery/ul (0-5); Collection Type CATH; Glucose NEGATIVE (NEGATIVE); Leukocyte Esterase NEGATIVE (NEGATIVE)
[2017-06-18 07:47] LABS: ADD URINE CULTURE? YES (NO); Bacteria FEW /HPF (NEGATIVE); COMPLETE URINE MICROSCOPIC? YES; Epithelial Cells MODERATE /HPF (FEW); Mucus MANY /HPF (NEGATIVE)
[2017-06-18] MEDS ORDERED: Sodium Chloride 0.9% 1000 ML 1,000 ML IV SCH ×2 (08:00→11:30)
--- NOTE | 2017-06-18 08:42 | XRAY ---
Exam: OB ultrasound less than 14 weeks from 06/18/2017. Comparison: OB ultrasound less than 14 weeks from 05/16/2017. Indication: Patient is 13 weeks , presents with heavy vaginal hemorrhaging. Findings: Transabdominal images of the pelvis reveal an anteflexed uterus. Prior normal-appearing gestational sac appears significantly collapsed with eccentric echogenicity within the uterus and cervix suggestive of hemorrhage/clot. The pole is no longer well identified. No cardiac activity is identified representing adverse change. The overall appearance is consistent with a spontaneous miscarriage in progress. Retained products of conception cannot be excluded by this study. Both maternal ovaries are identified and appear unremarkable size, shape, and echogenicity. Normal Doppler tracing is seen within each maternal ovary. No free intraperitoneal fluid is seen within the maternal pelvis. Impression: 1. Sonographic findings consistent with a spontaneous miscarriage in progress. No viable fetus or cardiac activity is identified. I cannot exclude some remaining proximal of conception within the endometrial canal. Significant hyperechoic clot/hemorrhage is seen within the uterus and at the level of the cervix. 2. Both maternal ovaries appear unremarkable. 3. No free intraperitoneal fluid is seen.
[2017-06-18 09:15] VITALS: O2SAT 98
[2017-06-18 11:12] VITALS: BP 108/94; PULSE 123
== END 2017-06-18 09:25 | disposition short-term general hospital (02) ==
LOC: ED 06:56
DX: O03.6 Delayed or excessive hemorrhage following complete or unspecified spontaneous abortion (principal)
CPT/HCPCS: 36000; 36415; 36430; 76801; 80053; 81000; 82150; 83690; 83735; 84702; 85025; 85610; 85730; 86850; 86900; 86901; 86922; 87086; 93041; 96374; 96376; 99285; 99291; 99292; J2270; P9016; P9612

== ENCOUNTER 2017-09-29 19:18 | Emergency (ER) | payer OTHER ==
[2017-09-29] MEDS ORDERED: Phenergan 25 MG INJ IV ONE (20:21)
[2017-09-29] MEDS ORDERED: Hydromorphone 1 mg/ml Ampule IV ONE (20:23)
--- NOTE | 2017-09-29 20:27 | ERPHSYRPT ---
- History of Present Illness Time Seen by Provider: 09/29/17 20:12 Source: patient, family (MOM) Exam Limitations: no limitations Patient Subjective Stated Complaint: pt states she has been having pain in her neck radiating to head on and friday. today she has had a headache Triage Nursing Assessment: pt alert and oriented, asnwers questions approp. respirations nonlabored with lungs cta. pt ambulatory with steady gait noted. pupils equal and reactive. bilat upper and lower ext strength equal and wnl. Physician History: FOR THE PAST 5 DAYS PT HAS HAD AN INTERMITTENT [place] V[place] HEADACHE RADIATING TO THE NECK LASTING UP TO 5 MINUTES PER EPISODE. TONIGHT PT HAS HAD DIZZINESS( DISEQUILIBRIUM). PT DENIES FEVER, COUGH, CHEST PAIN, ABDOMINAL PAIN, NAUSEA, VOMITING, DIAPHORESIS. Allergies/Adverse Reactions: codeine [From Tylenol-Codeine] Allergy (Verified 09/29/17 20:22) Home Medications: Enoxaparin Sodium [Lovenox] 100 mg SQ BID 06/18/17 [History] Hx Tetanus, Diphtheria Vaccination/Date Given: Yes Hx Influenza Vaccination/Date Given: No Hx Pneumococcal Vaccination/Date Given: No Immunizations Up to Date: Yes - Review of Systems Neurological: Dizziness, Headache All Other Systems: Reviewed and Negative - Past Medical History Pertinent Past Medical History: Yes Neurological History: Stroke ENT History: No Pertinent History Cardiac History: No Pertinent History Respiratory History: Asthma Endocrine Medical History: No Pertinent History Musculoskeletal History: No Pertinent History GI Medical History: No Pertinent History History: No Pertinent History Psycho-Social History: Depression Female Reproductive Disorders: Other Other Medical History: ovarian cyst, 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 - Past Surgical History Past Surgical History: Yes Neuro Surgical History: No Pertinent History Cardiac: No Pertinent History Respiratory: No Pertinent History Gastrointestinal: No Pertinent History Genitourinary: No Pertinent History Musculoskeletal: No Pertinent History Female Surgical History: No Pertinent History, Dilation & Curettage Other Surgical History: TONSILLECTOMY - Social History Smoking Status: Former smoker How long have you smoked: 1 Exposure to second hand smoke: No Drug Use: none Patient Lives Alone: No - Female History Hx Last Menstrual Period: currently Hx Now: (UNKNOWN) - Nursing Vital Signs Nursing Vital Signs: Initial Vital Signs Temperature 97.7 F 09/29/17 20:08 Pulse Rate 99 H 09/29/17 20:08 Respiratory Rate 18 09/29/17 20:08 Blood Pressure 152/99 09/29/17 20:08 O2 Sat by Pulse Oximetry 98 09/29/17 20:08 Pain Scale Pain Intensity 5 - Physical Exam General Appearance: alert Eye Exam: PERRL/EOMI Ears, Nose, Throat Exam: TMs normal, pharynx normal, moist mucous membranes Neck Exam: normal inspection, full range of motion Respiratory Exam: lungs clear Cardiovascular Exam: normal heart sounds Gastrointestinal/Abdomen Exam: soft, normal bowel sounds Back Exam: normal range of motion Extremity Exam: normal inspection, normal range of motion, No pedal edema Neurologic Exam: alert, cooperative, normal mood/affect, sensation nml, other ( NO BABINSKI PRESENT), No motor deficits, No motor weakness Skin Exam: warm, dry SpO2 Interpretation: normal SpO2: 98 Oxygen Delivery: Room Air - Course Nursing assessment & vital signs reviewed: Yes EKG Interpreted by Me: RATE (77), NORMAL AXIS, Other (SINUS ARRHYTHMIA) - Radiology Exams Chest X-ray Interpretation: Interpreted by me, No Pneumonia - CT Exams Head CT Interpretation: Discussed w/radiologist (COMPARED TO 03/10/17: STABLE SMALL OLD LEFT OCCIPITAL INFARCT. NO NEW/ACUTE FINDINGS.) Ordered Tests: Active Orders 24 hr Category Date Time Status EKG-ER Only STAT Care 09/29/17 20:21 Active IV Insertion STAT Care 09/29/17 20:21 Active CHEST 2 VIEWS (PA AND LAT) Stat Exams 09/29/17 20:22 Taken HEAD WITHOUT CONTRAST [CT] Stat Exams 09/29/17 20:20 Taken AMYLASE Stat Lab 09/29/17 20:48 Completed CBC W DIFF Stat Lab 09/29/17 20:48 Completed CMP Stat Lab 09/29/17 20:48 Completed HCG QUALITATIVE,SERUM Stat Lab 09/29/17 20:48 Completed LIPASE Stat Lab 09/29/17 20:48 Completed MAGNESIUM Stat Lab 09/29/17 20:48 Completed TROPONIN Q3H Lab 09/29/17 20:48 Completed TROPONIN Q3H Lab 09/29/17 23:30 Ordered TROPONIN Q3H Lab 09/30/17 02:30 Ordered TROPONIN Q3H Lab 09/30/17 05:30 Ordered TROPONIN Q3H Lab 09/30/17 08:30 Ordered UA W/ MICROSCOPIC Stat Lab 09/29/17 20:48 Completed Urine Triage Profile Stat Lab 09/29/17 20:48 Completed Medication Summary Generic Name Dose Route Start Last Admin Trade Name Berny PRN Reason Stop Dose Admin Sodium Chloride 1,000 mls @ 100 mls/hr 09/29/17 20:30 09/29/17 20:54 Sodium Chloride 0.9% 1000 Ml IV 10/29/17 20:29 100 mls/hr .Q10H PREET Administration Discontinued Medications Generic Name Dose Route Start Last Admin Trade Name Berny PRN Reason Stop Dose Admin Hydromorphone HCl 1 mg 09/29/17 20:23 09/29/17 20:53 Hydromorphone 1 Mg/Ml Ampule IV 09/29/17 20:24 1 mg STAT ONE Administration Hydromorphone HCl Confirm 09/29/17 20:50 Hydromorphone 1 Mg/Ml Ampule Administered 09/29/17 20:51 Dose 1 mg .ROUTE .STK-MED ONE Promethazine HCl 12.5 mg 09/29/17 20:21 09/29/17 20:54 Phenergan 25 Mg Inj IV 09/29/17 20:22 12.5 mg STAT ONE Administration Promethazine HCl Confirm 09/29/17 20:50 Phenergan 25 Mg Inj Administered 09/29/17 20:51 Dose 25 mg .ROUTE .STK-MED ONE Lab/Rad Data: Laboratory Result Diagrams 09/29/17 20:48 09/29/17 20:48 Laboratory Results 09/29/17 09/29/17 09/29/17 Range/Units 20:48 20:48 20:48 WBC (4.0-10.5) K/mm3 RBC (4.1-5.4) M/mm3 Hgb (12.0-16.0) gm/dl Hct (35-47) % MCV (78-100) fl MCH (26-32) pg MCHC (32-36) g/dl RDW (11.5-14.0) % Plt Count (150-450) K/mm3 MPV (6-9.5) fl Gran % (36.0-66.0) % Lymphocytes % (24.0-44.0) % Monocytes % (0.0-12.0) % Eosinophils % (0.00-5.0) % Basophils % (0.0-0.4) % Basophils # (0-0.4) Sodium (136-145) mEq/L Potassium (3.5-5.1) mEq/L Chloride (98-107) mEq/L Carbon Dioxide (21-32) mEq/L Anion Gap (5-15) MEQ/L BUN (9-20) mg/dL Creatinine (0.55-1.30) mg/dl Estimated GFR ML/MIN Glucose (70-110) MG/DL Calcium (8.5-10.1) mg/dL Magnesium (1.8-2.4) mg/dL Total Bilirubin (0.2-1.0) mg/dL AST (15-37) U/L ALT (12-78) U/L Alkaline Phosphatase (46-116) U/L Troponin I < 0.017 (0.000-0.056) ng/ml Serum Total Protein (6.4-8.2) gm/dL Albumin (3.4-5.0) g/dL Amylase (25-115) U/L Lipase (73-393) U/L Serum , Qual NEGATIVE (Negative) Ur Collection Type Urine Color (YELLOW) Urine Appearance (CLEAR) Urine pH (5-6) Ur Specific [place] (1.005-1.025) Urine Protein (Negative) Urine Ketones (NEGATIVE) Urine Blood (0-5) Kermit/ul Urine Nitrite (NEGATIVE) Urine Bilirubin (NEGATIVE) Urine Urobilinogen (0-1) mg/dL Ur Leukocyte Esterase (NEGATIVE) Urine Microscopic RBC (0-2) /HPF Ur Epithelial Cells (FEW) /HPF Urine Mucus (NEGATIVE) /HPF Urine Culture Reflexed (NO) Urine Glucose (NEGATIVE) mg/dL Urine Opiates Level NEG. (NEGATIVE) Ur Methadone NEG. (NEGATIVE) Urine Barbiturates NEG. (NEGATIVE) Ur Phencyclidine (PCP) NEG. (NEGATIVE) Urine Amphetamine NEG. (NEGATIVE) U Benzodiazepine Level NEG. (NEGATIVE) Urine Cocaine NEG. (NEGATIVE) Urine Marijuana (THC) NEG. (NEGATIVE) Specimen Received 09/29/17 09/29/17 09/29/17 Range/Units 20:48 20:48 20:48 WBC 11.2 H (4.0-10.5) K/mm3 RBC 5.13 (4.1-5.4) M/mm3 Hgb 14.2 (12.0-16.0) gm/dl Hct 44.0 (35-47) % MCV 85.8 (78-100) fl MCH 27.7 (26-32) pg MCHC 32.3 (32-36) g/dl RDW 13.4 (11.5-14.0) % Plt Count 290 (150-450) K/mm3 MPV 11.6 H (6-9.5) fl Gran % 62.5 (36.0-66.0) % Lymphocytes % 27.9 (24.0-44.0) % Monocytes % 5.8 (0.0-12.0) % Eosinophils % 3.5 (0.00-5.0) % Basophils % 0.3 (0.0-0.4) % Basophils # 0.03 (0-0.4) Sodium 141 (136-145) mEq/L Potassium 3.8 (3.5-5.1) mEq/L Chloride 103 (98-107) mEq/L Carbon Dioxide 29.6 (21-32) mEq/L Anion Gap 12.1 (5-15) MEQ/L BUN 7 L (9-20) mg/dL Creatinine 0.89 (0.55-1.30) mg/dl Estimated GFR > 60 ML/MIN Glucose 94 (70-110) MG/DL Calcium 9.1 (8.5-10.1) mg/dL Magnesium 1.8 (1.8-2.4) mg/dL Total Bilirubin 0.10 L (0.2-1.0) mg/dL AST 16 (15-37) U/L ALT 16 (12-78) U/L Alkaline Phosphatase 74 (46-116) U/L Troponin I (0.000-0.056) ng/ml Serum Total Protein 8.3 H (6.4-8.2) gm/dL Albumin 3.8 (3.4-5.0) g/dL Amylase 33 (25-115) U/L Lipase 96 (73-393) U/L Serum , Qual (Negative) Ur Collection Type CLEAN CATCH Urine Color YELLOW (YELLOW) Urine Appearance CLEAR (CLEAR) Urine pH 5.0 (5-6) Ur Specific [place] 1.020 (1.005-1.025) Urine Protein NEGATIVE (Negative) Urine Ketones NEGATIVE (NEGATIVE) Urine Blood 50 (0-5) Kermit/ul Urine Nitrite NEGATIVE (NEGATIVE) Urine Bilirubin NEGATIVE (NEGATIVE) Urine Urobilinogen NORMAL (0-1) mg/dL Ur Leukocyte Esterase NEGATIVE (NEGATIVE) Urine Microscopic RBC 5-10 (0-2) /HPF Ur Epithelial Cells FEW (FEW) /HPF Urine Mucus SLIGHT (NEGATIVE) /HPF Urine Culture Reflexed NO (NO) Urine Glucose NEGATIVE (NEGATIVE) mg/dL Urine Opiates Level (NEGATIVE) Ur Methadone (NEGATIVE) Urine Barbiturates (NEGATIVE) Ur Phencyclidine (PCP) (NEGATIVE) Urine Amphetamine (NEGATIVE) U Benzodiazepine Level (NEGATIVE) Urine Cocaine (NEGATIVE) Urine Marijuana (THC) (NEGATIVE) Specimen Received 09-29-17 Time of Disposition: 22:06 Departure Disposition: Home Clinical Impression: HEADACHE, DIZZINESS, HX CVA Condition: Stable Critical Care Time: No Referrals: MUNA LANTIGUA MD [Primary Care Provider] - Instructions: Headache Prescriptions: Meclizine HCl 25 mg [Antivert 25 mg] 25 mg PO Q8H PRN PRN #30 tablet PRN Reason: Dizziness
[2017-09-29] MEDS ORDERED: Sodium Chloride 0.9% 1000 ML 1,000 ML IV SCH (20:30)
[2017-09-29] MEDS ORDERED: Sodium Chloride 0.9% 1000 ML 1,000 ML ONE (20:50)
[2017-09-29] MEDS ORDERED: Phenergan 25 MG INJ ONE (20:50)
[2017-09-29] MEDS ORDERED: Hydromorphone 1 mg/ml Ampule ONE (20:50)
[2017-09-29 20:52] LABS: BASOPHIL % 0.3 % (0.0-0.4); Basophil (Absolute #) 0.03 (0-0.4); Eosinophil % 3.5 % (0.00-5.0); Eosinophil (Absolute #) 0.39 (0-0.5); Granulocytes % 62.5 % (36.0-66.0); Hemoglobin 14.2 gm/dl (12.0-16.0); Lymphocyte (Absolute #) 3.13 (1.0-4.6); Lymphocytes % 27.9 % (24.0-44.0); Mean Cell Volume 85.8 fl (78-100); Mean Corpuscular Hemoglobin 27.7 pg (26-32); Mean Corpuscular Hgb Concent. 32.3 g/dl (32-36); Mean Platelet Volume 11.6 fl (6-9.5); Monocyte (Absolute #) 0.65 (0.0-1.3); Monocytes % 5.8 % (0.0-12.0); Platelet Count 290 K/mm3 (150-450); Red Blood Count 5.13 M/mm3 (4.1-5.4); Red Cell Distribution Width 13.4 % (11.5-14.0); White Blood Count 11.2 K/mm3 (4.0-10.5)
[2017-09-29 21:03] LABS: Amphetamine,Urine NEG. (NEGATIVE); Barbiturate,Urine NEG. (NEGATIVE); Benzodiazepine,Urine NEG. (NEGATIVE); Cocaine,Urine NEG. (NEGATIVE); Methadone,Urine NEG. (NEGATIVE); Opiate,Urine NEG. (NEGATIVE); PCP,Urine NEG. (NEGATIVE); THC,Urine NEG. (NEGATIVE)
[2017-09-29 21:12] LABS: ALBUMIN 3.8 g/dL (3.4-5.0); ALKALINE PHOSPHATASE 74 U/L (46-116); AMYLASE 33 U/L (25-115); ANION GAP 12.1 MEQ/L (5-15); BLOOD UREA NITROGEN 7 mg/dL (9-20); CHLORIDE 103 mEq/L (98-107); Calcium 9.1 mg/dL (8.5-10.1); Carbon Dioxide 29.6 mEq/L (21-32); Creatinine 1 0.89 mg/dl (0.55-1.30); EST GLOMERULAR FILTRATION RATE > 60 ML/MIN; Glucose 94 MG/DL (70-110); LIPASE 96 U/L (73-393); MAGNESIUM 1.8 mg/dL (1.8-2.4); Potassium 3.8 mEq/L (3.5-5.1); SGOT/AST 16 U/L (15-37); SGPT/ALT 16 U/L (12-78); SODIUM 141 mEq/L (136-145); Total Protein 8.3 gm/dL (6.4-8.2)
[2017-09-29 21:44] LABS: Appearance CLEAR (CLEAR); Bilirubin NEGATIVE (NEGATIVE); Blood 50 Ery/ul (0-5); Epithelial Cells FEW /HPF (FEW); Glucose NEGATIVE (NEGATIVE); Ketones NEGATIVE (NEGATIVE); Leukocyte Esterase NEGATIVE (NEGATIVE); Mucus SLIGHT /HPF (NEGATIVE); Nitrite NEGATIVE (NEGATIVE); Protein,Urine Dip NEGATIVE (Negative); Urobilinogen NORMAL mg/dL (0-1)
[2017-09-29 21:54] VITALS: O2SAT 98
[2017-09-29 23:01] VITALS: BP 120/79; PULSE 87
--- NOTE | 2017-09-30 08:50 | XRAY ---
Indication: Dizziness. Comparison: September 25, 2011. PA/lateral chest again demonstrates normal heart, lungs, and bony thorax with a few incidental calcified granulomas.
--- NOTE | 2017-09-30 08:54 | XRAY ---
Indication: Headache and dizziness. Multiple contiguous axial images obtained through the head without contrast. Comparison: March 10, 2017. Stable small focus of left occipital lobe remote infarct and benign posterior falx calcification. No acute intracranial hemorrhage, abnormal extra-axial fluid collection, or mass effect. Fourth ventricle is midline without hydrocephalus. Bony calvarium intact. Visualized paranasal sinuses and mastoid air cells are clear. Impression: 1. Stable remote left occipital lobe infarct. 2. No new or acute intracranial abnormalities. CT DI 70.38
== END 2017-09-29 22:45 | disposition home or self-care (01) ==
LOC: ED 19:18
DX: R51 Headache (principal); R42 Dizziness and giddiness; Z86.73 Personal history of transient ischemic attack (TIA), and cerebral infarction without residual deficits
CPT/HCPCS: 36000; 36415; 70450; 71046; 80053; 80307; 81000; 82150; 83690; 83735; 84484; 84703; 85025; 93005; 96360; 96361; 96374; 96375; 99284; 99285; J1170; J2550

== ENCOUNTER 2018-03-15 01:26 | Emergency (ER) | payer SELFPAY ==
[2018-03-15] MEDS ORDERED: Reglan 10 MG/2 ML IV ONE (01:47)
[2018-03-15] MEDS ORDERED: TORAdol 30 mg Injection IV ONE (01:47)
[2018-03-15] MEDS ORDERED: Sodium Chloride 0.9% 1000 ML 1,000 ML IV STA (01:47)
[2018-03-15] MEDS ORDERED: BENADRYL 50 MG/ML IV ONE (01:47)
[2018-03-15] MEDS ORDERED: TORAdol 30 mg Injection ONE (02:07)
[2018-03-15] MEDS ORDERED: BENADRYL 50 MG/ML ONE (02:07)
[2018-03-15] MEDS ORDERED: Reglan 10 MG/2 ML ONE (02:07)
[2018-03-15] MEDS ORDERED: Sodium Chloride 0.9% 1000 ML 1,000 ML ONE (02:08)
[2018-03-15 02:49] LABS: BASOPHIL % 0.8 % (0.0-0.4); Basophil (Absolute #) 0.03 (0-0.4); Eosinophil % 1.1 % (0.00-5.0); Eosinophil (Absolute #) 0.04 (0-0.5); Granulocyte Absolute (ANC) 1.12 (1.4-6.9); Granulocytes % 30.8 % (36.0-66.0); Hematocrit 38.4 % (35-47); Hemoglobin 13.1 gm/dl (12.0-16.0); Lymphocyte (Absolute #) 1.53 (1.0-4.6); Mean Cell Volume 90.4 fl (78-100); Mean Corpuscular Hemoglobin 30.8 pg (26-32); Mean Corpuscular Hgb Concent. 34.1 g/dl (32-36); Mean Platelet Volume 11.3 fl (6-9.5); Monocyte (Absolute #) 0.92 (0.0-1.3); Monocytes % 25.3 % (0.0-12.0); Platelet Count 124 K/mm3 (150-450); Red Blood Count 4.25 M/mm3 (4.1-5.4); Red Cell Distribution Width 15.4 % (11.5-14.0); White Blood Count 3.6 K/mm3 (4.0-10.5)
--- NOTE | 2018-03-15 02:54 | ERPHSYRPT ---
- History of Present Illness Time Seen by Provider: 03/15/18 01:40 Source: patient Exam Limitations: no limitations Patient Subjective Stated Complaint: left side of face began hurting and it now radiates down the side of her neck Triage Nursing Assessment: Pt A&O x3, severe pain on left side of face which radiates down left side of neck, hx of stroke on left side which affected her vision in the right eye, nausea, vomiting, denies headache now but had a light migraine on , able to hold both arms up in front, BP 146/105, no difficulties with strength Physician History: Pt started c/o pain in her left jaw area 3 days ago, nauseated, denies current headaches, vomiting, fever, cough or SOB. She suffered a stroke last year during her , which ended with miscarriage, she was on Lovenox but it was stopped after her miscarriage. She denies recent dental work or surgery. Timing/Duration: gradual onset Severity: severe ENT Location: facial Prearrival Treatment: no prearrival treatment Modifying Factors: Improves With: nothing Associated Symptoms: jaw pain Allergies/Adverse Reactions: codeine [From Tylenol-Codeine] Allergy (Verified 03/15/18 01:43) Hx Tetanus, Diphtheria Vaccination/Date Given: Yes Hx Influenza Vaccination/Date Given: No Hx Pneumococcal Vaccination/Date Given: No - Review of Systems Constitutional: No Symptoms Ears, Nose, & Throat: Mouth Pain Respiratory: No Symptoms Cardiac: No Symptoms Neurological: No Symptoms All Other Systems: Reviewed and Negative - Past Medical History Pertinent Past Medical History: Yes Neurological History: Stroke ENT History: No Pertinent History Cardiac History: No Pertinent History Respiratory History: Asthma Endocrine Medical History: No Pertinent History Musculoskeletal History: No Pertinent History GI Medical History: No Pertinent History History: No Pertinent History Psycho-Social History: Depression Female Reproductive Disorders: Other Other Medical History: ovarian cyst, 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 - Past Surgical History Past Surgical History: Yes Neuro Surgical History: No Pertinent History Cardiac: No Pertinent History Respiratory: No Pertinent History Gastrointestinal: No Pertinent History Genitourinary: No Pertinent History Musculoskeletal: No Pertinent History Female Surgical History: No Pertinent History, Dilation & Curettage Other Surgical History: TONSILLECTOMY - Social History Smoking Status: Former smoker How long have you smoked: 1 Exposure to second hand smoke: No Drug Use: none Patient Lives Alone: No - Female History Hx Now: No (doesn't think so) - Nursing Vital Signs Nursing Vital Signs: Initial Vital Signs Temperature 97.7 F 03/15/18 01:31 Pulse Rate 96 H 03/15/18 01:31 Blood Pressure 146/105 03/15/18 01:31 O2 Sat by Pulse Oximetry 100 03/15/18 01:31 Pain Scale Pain Intensity 10 - Physical Exam General Appearance: no apparent distress Eye Exam: bilateral eye: PERRL, EOMI Ear Exam: bilateral ear: canal normal, TM normal Nasal Exam: normal inspection Throat Exam: pharynx normal Neck Exam: normal inspection, non-tender, supple, trachea midline, No JVD, No lymphadenopathy (R), No lymphadenopathy (L) Cardiovascular/Respiratory Exam: chest non-tender, normal breath sounds, regular rate/rhythm, heart sounds normal, no JVD Abdominal Exam: non-tender, soft Neurologic Exam: alert, 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, cooperative, normal mood/affect, nml station & gait, No motor deficits Skin Exam: normal color, warm, dry, No rash SpO2 Interpretation: normal SpO2: 98 Oxygen Delivery: Room Air - Course Nursing assessment & vital signs reviewed: Yes - CT Exams Head CT Interpretation: Negative, Tele-radiologist Report Maxillofacial Bones CT Interpretation: Negative, Tele-radiologist Report Ordered Tests: Active Orders 24 hr Category Date Time Status FACIAL BONES WO CONTRAST [CT] Stat Exams 03/15/18 01:51 Taken HEAD WITHOUT CONTRAST [CT] Stat Exams 03/15/18 01:48 Taken CBC W DIFF Stat Lab 03/15/18 02:35 Completed CMP Stat Lab 03/15/18 02:35 Completed Erythrocyte Sedimentation Rate Stat Lab 03/15/18 02:35 Completed HCG,QUALITATIVE URINE Stat Lab 03/15/18 02:45 Completed Lactic Acid Urgent Lab 03/15/18 02:35 Completed UA W/ MICROSCOPIC Stat Lab 03/15/18 02:45 Completed Urine Triage Profile Stat Lab 03/15/18 02:45 Completed Medication Summary Discontinued Medications Generic Name Dose Route Start Last Admin Trade Name Freq PRN Reason Stop Dose Admin Diphenhydramine HCl 25 mg 03/15/18 01:47 03/15/18 02:10 Benadryl 50 Mg/Ml IV 03/15/18 01:48 25 mg STAT ONE Administration Diphenhydramine HCl Confirm 03/15/18 02:07 Benadryl 50 Mg/Ml Administered 03/15/18 02:08 Dose 50 mg .ROUTE .STK-MED ONE Sodium Chloride 1,000 mls @ 999 mls/hr 03/15/18 01:47 03/15/18 03:39 Sodium Chloride 0.9% 1000 Ml IV 03/15/18 02:47 Infused .Q1H1M STA Infusion Sodium Chloride Confirm 03/15/18 02:08 Sodium Chloride 0.9% 1000 Ml Administered 03/15/18 02:09 Dose 1,000 mls @ ud .ROUTE .STK-MED ONE Ketorolac Tromethamine 30 mg 03/15/18 01:47 03/15/18 02:10 Toradol 30 Mg Injection IV 03/15/18 01:48 30 mg STAT ONE Administration Ketorolac Tromethamine Confirm 03/15/18 02:07 Toradol 30 Mg Injection Administered 03/15/18 02:08 Dose 30 mg .ROUTE .STK-MED ONE Metoclopramide HCl 10 mg 03/15/18 01:47 03/15/18 02:10 Reglan 10 Mg/2 Ml IV 03/15/18 01:48 10 mg STAT ONE Administration Metoclopramide HCl Confirm 03/15/18 02:07 Reglan 10 Mg/2 Ml Administered 03/15/18 02:08 Dose 10 mg .ROUTE .STK-MED ONE Lab/Rad Data: Laboratory Result Diagrams 03/15/18 02:35 03/15/18 02:35 Laboratory Results 03/15/18 03/15/18 03/15/18 Range/Units 02:45 02:45 02:45 WBC (4.0-10.5) K/mm3 RBC (4.1-5.4) M/mm3 Hgb (12.0-16.0) gm/dl Hct (35-47) % MCV (78-100) fl MCH (26-32) pg MCHC (32-36) g/dl RDW (11.5-14.0) % Plt Count (150-450) K/mm3 MPV (6-9.5) fl Gran % (36.0-66.0) % Eos # (Auto) (0-0.5) Absolute Lymphs (auto) (1.0-4.6) Absolute Monos (auto) (0.0-1.3) Lymphocytes % (24.0-44.0) % Monocytes % (0.0-12.0) % Eosinophils % (0.00-5.0) % Basophils % (0.0-0.4) % Absolute Granulocytes (1.4-6.9) Basophils # (0-0.4) ESR (0-20) mm/hr Sodium (137-145) mmol/L Potassium (3.5-5.1) mmol/L Chloride (98-107) mmol/L Carbon Dioxide (22-30) mmol/L Anion Gap (5-15) MEQ/L BUN (7-17) mg/dL Creatinine (0.52-1.04) mg/dL Estimated GFR ML/MIN Glucose (74-106) mg/dL Lactic Acid (0.4-2.0) Calcium (8.4-10.2) mg/dL Total Bilirubin (0.2-1.3) mg/dL AST (14-36) U/L ALT (0-35) U/L Alkaline Phosphatase (38-126) U/L Serum Total Protein (6.3-8.2) g/dL Albumin (3.5-5.0) g/dL Ur Collection Type CLEAN CATCH Urine Color YELLOW (YELLOW) Urine Appearance CLEAR (CLEAR) Urine pH 7.0 (5-6) Ur Specific [place] 1.015 (1.005-1.025) Urine Protein NEGATIVE (Negative) Urine Ketones NEGATIVE (NEGATIVE) Urine Blood TRACE NON-HEM (0-5) Kermit/ul Urine Nitrite NEGATIVE (NEGATIVE) Urine Bilirubin NEGATIVE (NEGATIVE) Urine Urobilinogen NORMAL (0-1) mg/dL Ur Leukocyte Esterase NEGATIVE (NEGATIVE) Urine Microscopic RBC 0-2 (0-2) /HPF Urine Microscopic WBC 0-2 (0-5) /HPF Ur Epithelial Cells FEW (FEW) /HPF Urine Bacteria RARE (NEGATIVE) /HPF Urine Culture Reflexed NO (NO) Urine Glucose NEGATIVE (NEGATIVE) mg/dL Urine HCG, Qual NEGATIVE (Negative) Urine Opiates Level NEGATIVE (NEGATIVE) Ur Methadone NEGATIVE (NEGATIVE) Urine Barbiturates NEGATIVE (NEGATIVE) Ur Phencyclidine (PCP) NEGATIVE (NEGATIVE) Urine Amphetamine NEGATIVE (NEGATIVE) U Benzodiazepine Level NEGATIVE (NEGATIVE) Urine Cocaine NEGATIVE (NEGATIVE) Urine Marijuana (THC) NEGATIVE (NEGATIVE) Specimen Received 03/15/18 0245 03/15/18 03/15/18 03/15/18 Range/Units 02:35 02:35 02:35 WBC 3.6 L (4.0-10.5) K/mm3 RBC 4.25 (4.1-5.4) M/mm3 Hgb 13.1 (12.0-16.0) gm/dl Hct 38.4 (35-47) % MCV 90.4 (78-100) fl MCH 30.8 (26-32) pg MCHC 34.1 (32-36) g/dl RDW 15.4 H (11.5-14.0) % Plt Count 124 L (150-450) K/mm3 MPV 11.3 H (6-9.5) fl Gran % 30.8 L (36.0-66.0) % Eos # (Auto) 0.04 (0-0.5) Absolute Lymphs (auto) 1.53 (1.0-4.6) Absolute Monos (auto) 0.92 (0.0-1.3) Lymphocytes % 42.0 (24.0-44.0) % Monocytes % 25.3 H (0.0-12.0) % Eosinophils % 1.1 (0.00-5.0) % Basophils % 0.8 (0.0-0.4) % Absolute Granulocytes 1.12 L (1.4-6.9) Basophils # 0.03 (0-0.4) ESR 29 H (0-20) mm/hr Sodium 138 (137-145) mmol/L Potassium 4.2 (3.5-5.1) mmol/L Chloride 104 (98-107) mmol/L Carbon Dioxide 24 (22-30) mmol/L Anion Gap 14.6 (5-15) MEQ/L BUN 11 (7-17) mg/dL Creatinine 0.67 (0.52-1.04) mg/dL Estimated GFR > 60.0 ML/MIN Glucose 117 H (74-106) mg/dL Lactic Acid 1.5 (0.4-2.0) Calcium 9.3 (8.4-10.2) mg/dL Total Bilirubin 0.20 (0.2-1.3) mg/dL AST 21 (14-36) U/L ALT 14 (0-35) U/L Alkaline Phosphatase 66 (38-126) U/L Serum Total Protein 7.5 (6.3-8.2) g/dL Albumin 4.2 (3.5-5.0) g/dL Ur Collection Type Urine Color (YELLOW) Urine Appearance (CLEAR) Urine pH (5-6) Ur Specific [place] (1.005-1.025) Urine Protein (Negative) Urine Ketones (NEGATIVE) Urine Blood (0-5) Kermit/ul Urine Nitrite (NEGATIVE) Urine Bilirubin (NEGATIVE) Urine Urobilinogen (0-1) mg/dL Ur Leukocyte Esterase (NEGATIVE) Urine Microscopic RBC (0-2) /HPF Urine Microscopic WBC (0-5) /HPF Ur Epithelial Cells (FEW) /HPF Urine Bacteria (NEGATIVE) /HPF Urine Culture Reflexed (NO) Urine Glucose (NEGATIVE) mg/dL Urine HCG, Qual (Negative) Urine Opiates Level (NEGATIVE) Ur Methadone (NEGATIVE) Urine Barbiturates (NEGATIVE) Ur Phencyclidine (PCP) (NEGATIVE) Urine Amphetamine (NEGATIVE) U Benzodiazepine Level (NEGATIVE) Urine Cocaine (NEGATIVE) Urine Marijuana (THC) (NEGATIVE) Specimen Received - Progress Progress: improved Progress Note: 03/15/18 04:44 Pt is asleep, easy to arouse, pain improved, no fever or vomiting, stable. I discussed our results with her and her mother, she is getting discharged to rest x 2-3 days, no solid food x 1 week, return if severe headaches, vomiting, fever> 102 F and follow up with her physician next week. She is being discharged on baclofen. - Departure Time of Disposition: 04:47 Departure Disposition: Home Clinical Impression: Temporomandibular joint (TMJ) pain Qualifiers: Laterality: left Qualified Code(s): M26.622 - Arthralgia of left temporomandibular joint Condition: Stable Critical Care Time: No Referrals: MUNA LANTIGUA MD [Primary Care Provider] - Instructions: Temporomandibular Joint (TMJ) Disorders (DC) Additional Instructions: Rest x 1 week, no solid food! Follow up with your physician next week! Return if severe pain, headaches, vomiting, lethargy or fever> 102 F! Prescriptions: Baclofen 10 mg [Lioresal 10 mg] 10 mg PO TID PRN 5 Days #15 tablet PRN Reason: Pain
[2018-03-15 03:09] LABS: Appearance CLEAR (CLEAR); Bilirubin NEGATIVE (NEGATIVE); Blood TRACE NON-HEM Ery/ul (0-5); Glucose NEGATIVE (NEGATIVE); Ketones NEGATIVE (NEGATIVE); Leukocyte Esterase NEGATIVE (NEGATIVE); Nitrite NEGATIVE (NEGATIVE); Protein,Urine Dip NEGATIVE (Negative); Specific Gravity 1.015 (1.005-1.025); Urobilinogen NORMAL mg/dL (0-1)
[2018-03-15 03:10] LABS: Bacteria RARE /HPF (NEGATIVE); Epithelial Cells FEW /HPF (FEW); RBC 0-2 /HPF (0-2); WBC 0-2 /HPF (0-5)
[2018-03-15 03:11] LABS: ALBUMIN 4.2 g/dL (3.5-5.0); ALKALINE PHOSPHATASE 66 U/L (38-126); ANION GAP 14.6 MEQ/L (5-15); BLOOD UREA NITROGEN 11 mg/dL (7-17); CHLORIDE 104 mmol/L (98-107); Calcium 9.3 mg/dL (8.4-10.2); Carbon Dioxide 24 mmol/L (22-30); Creatinine 1 0.67 mg/dL (0.52-1.04); Glucose 117 mg/dL (74-106); Potassium 4.2 mmol/L (3.5-5.1); SGOT/AST 21 U/L (14-36); SGPT/ALT 14 U/L (0-35); SODIUM 138 mmol/L (137-145); Total Protein 7.5 g/dL (6.3-8.2)
[2018-03-15 03:12] LABS: Amphetamine,Urine NEGATIVE (NEGATIVE); Barbiturate,Urine NEGATIVE (NEGATIVE); Benzodiazepine,Urine NEGATIVE (NEGATIVE); Cocaine,Urine NEGATIVE (NEGATIVE); Methadone,Urine NEGATIVE (NEGATIVE); Opiate,Urine NEGATIVE (NEGATIVE); PCP,Urine NEGATIVE (NEGATIVE); THC,Urine NEGATIVE (NEGATIVE)
[2018-03-15 03:23] LABS: Erythrocyte Sedimentation Rate 29 mm/hr (0-20)
[2018-03-15 05:03] VITALS: BP 110/70; PULSE 101; O2SAT 95
--- NOTE | 2018-03-15 07:41 | XRAY ---
Indication: Headache and facial pain. Multiple contiguous axial images obtained through the head without contrast. Comparison: September 29, 2017. Stable small focus left occipital lobe remote infarct. Again no acute intracranial hemorrhage, abnormal extra-axial fluid collection, or mass effect. Fourth ventricle is midline without hydrocephalus. Ovra-white matter differentiation preserved. Bony calvarium intact. Visualized paranasal sinuses and mastoid air cells are clear. Impression: Stable small remote left occipital lobe infarct. No new or acute intracranial abnormalities. Comment: Preliminary interpretation was made by [facility]. No discrepancy. CTDI 70.77
--- NOTE | 2018-03-15 07:46 | XRAY ---
Indication: Left facial pain radiating down neck. Multiple contiguous axial images obtained through the facial bones. Sagittal and coronal reformatted images obtained. Comparison: None No acute fracture, suspicious bony lesions, or radiopaque foreign body. Orbits including roof, boone, and floors intact. Minimal mucosal thickening in the inferior left maxillary sinus. Remaining paranasal sinuses and nasal passages are clear. Moderate nasal septal deviation to the right. Visualized noncontrasted soft tissues unremarkable. CT head reported separately. Impression: Minimal left maxillary sinus disease. Otherwise negative CT facial bones. Comment: Preliminary interpretation was made by [facility]. No discrepancy. CTDI 59.47
== END 2018-03-15 04:58 | disposition home or self-care (01) ==
LOC: ED 01:26
DX: M26.622 Arthralgia of left temporomandibular joint (principal); Z86.73 Personal history of transient ischemic attack (TIA), and cerebral infarction without residual deficits
CPT/HCPCS: 36415; 70450; 70486; 80053; 80307; 81000; 83605; 84703; 85025; 85652; 96374; 96375; 99284; J1200; J1885

== ENCOUNTER 2018-04-29 06:51 | Emergency (ER) | payer SELFPAY ==
[2018-04-29] MEDS ORDERED: TYLENOL 325 MG PO ONE (07:03)
[2018-04-29] MEDS ORDERED: TYLENOL 325 MG ONE (07:08)
--- NOTE | 2018-04-29 07:10 | ERPHSYRPT ---
- History of Present Illness Time Seen by Provider: 04/29/18 07:03 Source: patient, family Exam Limitations: no limitations Physician History: melisa slipped in the shower last pm striking her left knee of the bottom of the shower; no other injury; no other complaints; no prior hx; otherwise healthy ; just ended normal period; denies ; right handed; walks with a limp favoring right leg; pain increased with bending knee and walking; no numbness or weakness; Occurred: other (last pm) Reason for Fall: slipped (in shwer) Injuries/Pain Location: lower extremity (antrior left knee) Loss of Consciousness: no loss of consciousness Quality: aching Severity of Pain-Max: severe (10) Severity of Pain-Current: moderate Modifying Factors: Improves With: immobilization (helps), movement (bending aggravates) Associated Symptoms (Fall): denies symptoms Allergies/Adverse Reactions: codeine [From Tylenol-Codeine] Allergy (Verified 04/29/18 07:08) Home Medications: No Reportable Medications [No Reported Medications] 04/29/18 [History] Hx Tetanus, Diphtheria Vaccination/Date Given: Yes Hx Influenza Vaccination/Date Given: No Hx Pneumococcal Vaccination/Date Given: No - Review of Systems Constitutional: No Symptoms Eyes: No Symptoms Ears, Nose, & Throat: No Symptoms Respiratory: No Cough, No Dyspnea, No Wheezing Cardiac: No Chest Pain, No Palpitations, No Syncope Abdominal/Gastrointestinal: No Abdominal Pain, No Nausea, No Vomiting, No Diarrhea Genitourinary Symptoms: No Symptoms Musculoskeletal: Fall, Injury (left knee anterior), No Back Pain, No Neck Pain, No Deformity, No Joint Redness Skin: No No Symptoms Neurological: No No Symptoms Psychological: No No Symptoms Endocrine: No No Symptoms Hematologic/Lymphatic: No No Symptoms Immunological/Allergic: No No Symptoms - Past Medical History Pertinent Past Medical History: Yes Neurological History: Stroke ENT History: No Pertinent History Cardiac History: No Pertinent History Respiratory History: Asthma Endocrine Medical History: No Pertinent History Musculoskeletal History: No Pertinent History GI Medical History: No Pertinent History History: No Pertinent History Psycho-Social History: Depression Female Reproductive Disorders: Other Other Medical History: ovarian cyst, 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 - Past Surgical History Past Surgical History: Yes Neuro Surgical History: No Pertinent History Cardiac: No Pertinent History Respiratory: No Pertinent History Gastrointestinal: No Pertinent History Genitourinary: No Pertinent History Musculoskeletal: No Pertinent History Female Surgical History: No Pertinent History, Dilation & Curettage Other Surgical History: TONSILLECTOMY - Social History Smoking Status: Former smoker How long have you smoked: 1 Exposure to second hand smoke: No Alcohol Use: Socially Drug Use: none Patient Lives Alone: No Significant Family History: heart disease, cancer, hypertension - Female History Hx Last Menstrual Period: last week wnl Hx Now: No - Nursing Vital Signs Nursing Vital Signs: Initial Vital Signs Temperature 97.5 F 04/29/18 06:55 Pulse Rate 94 H 04/29/18 06:55 Respiratory Rate 18 04/29/18 06:55 Blood Pressure 138/94 04/29/18 06:55 O2 Sat by Pulse Oximetry 98 04/29/18 06:55 Pain Scale Pain Intensity 8 - [place] Coma Score Best Eye Response ([place]): (4) open spontaneously Best Verbal Response ([place]): (5) oriented Best Motor Response ([place]): (6) obeys commands [place] Total: 15 - Physical Exam General Appearance: moderate distress, alert, obese (mild) Head Injury: no evidence of injury Eye Exam: PERRL/EOMI, eyes nml inspection, No photophobia ENT Exam: airway nml, nml ext.inspection, No clotted nasal blood, No malocclusion Neck Exam: supple, trachea midline, full range of motion, normal alignment, normal inspection, No paraspinous muscle tender, No pain on movement of neck Respiratory/Chest Exam: normal breath sounds, No chest tenderness, No respiratory distress, No ecchymosis, No crepitus, No rales, No rhonchi, No wheezing Cardiovascular Exam: normal heart sounds, regular rate/rhythm, normal peripheral pulses, No murmur, No edema, No JVD Gastrointestinal Exam: soft, normal bowel sounds, No tenderness, No guarding, No rebound, No organomegaly Rectal Exam: deferred Back Exam: normal inspection, normal range of motion, No CVA tenderness, No vertebral tenderness, No rash Extremity Exam: normal inspection, normal range of motion, capillary refill <3 sec, pelvis stable, limited range of motion (left knee due to pain with flexion) , pain with movement (left knee), weight bearing (increases pain), tenderness ( distal anterior left knee; patella non-tender; stable to stress; no damon sign ; pain with stress of medial collateral but no laxity; FROM with pain; able to bear wt with pain), No calf tenderness, No deformities, No parasthesia, No paralysis, No hip tenderness, No joint effusion, No pedal edema Peripheral Pulses: carotid (R): 4+, carotid (L): 4+, femoral (R): 4+, femoral (L ): 4+, dorsalis-pedis (R): 4+, dorsalis-pedis (L): 4+ Neurologic Exam: alert, 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, cooperative, 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, normal mood/affect, nml cerebellar function, sensation nml, No nml station & gait (limps favoring right leg) Skin Exam: normal color, warm, dry, No rash, No petechiae, No abrasion, No ecchymosis - Course Nursing assessment & vital signs reviewed: Yes - Radiology Exams Left Knee X-ray Interpretation: Interpreted by me, No Fracture, No Subluxation Ordered Tests: Active Orders 24 hr Category Date Time Status Cold Application STAT Care 04/29/18 07:03 Active Re-Check Vital Signs STAT Care 04/29/18 07:03 Active Splint STAT Care 04/29/18 07:25 Ordered KNEE (3 VIEWS) Stat Exams 04/29/18 07:04 Taken Medication Summary Discontinued Medications Generic Name Dose Route Start Last Admin Trade Name Berny PRN Reason Stop Dose Admin Acetaminophen 650 mg 04/29/18 07:03 04/29/18 07:09 Tylenol 325 Mg PO 04/29/18 07:04 650 mg STAT ONE Administration Acetaminophen Confirm 04/29/18 07:08 Tylenol 325 Mg Administered 04/29/18 07:09 Dose 650 mg .ROUTE .STK-MED ONE - Progress Progress: improved (after meds), pain not gone completely, re-examined (after emds and xr) Progress Note: 04/29/18 07:18 eamined; pain meds given; xr pending; will recheck; significant other at bedside ; questions answered 04/29/18 07:30 recheck after xr and meds; feeling better; xr results given; erazo wrap applied and rechecked; no NV compromise after application; instructions given and questions answered; patient has crutches at home; Counseled pt/family regarding: diagnosis, need for follow-up, rad results, smoking cessation - Departure Time of Disposition: 07:32 Departure Disposition: Home Clinical Impression: Contusion of knee, left, Strain of left knee Condition: Stable Critical Care Time: No Referrals: MUNA LANTIGUA MD [Primary Care Provider] - Instructions: Knee Sprain (DC), Knee Pain (DC) Additional Instructions: Acute Sprain Instructions lower extremity; R.I.C.E.; wear splint/immobilyzer as directed; observe for neuro-vascular compromise ( change in color; increased pain; cold to touch); Use crutches, walker, cane as directed. FU LMD/ specialist as directed; call for appointment as directed; Return if problems; Take meds as prescribed. Follow-up with family doctor as directed. Call for appointment. Return if any problems. If you smoke please stop. Call or follow up with your family doctor for assistance if you need it to stop. Please wear your seatbelt when driving. Have a nice day. Thank you for allowing us to participate in your care today. :o) Dr Andrei Zabala
[2018-04-29 07:20] VITALS: BP 138/90; PULSE 90; O2SAT 99
--- NOTE | 2018-04-29 08:46 | XRAY ---
Indication: Pain following fall. Comparison: None 3 views of the left knee obtained using portable technique demonstrates minimal medial joint space narrowing. No other bony, articular, or soft tissue abnormalities.
== END 2018-04-29 07:42 | disposition home or self-care (01) ==
LOC: ED 06:51
DX: S80.02XA Contusion of left knee, initial encounter (principal); S86.912A Strain of unspecified muscle(s) and tendon(s) at lower leg level, left leg, initial encounter; W01.0XXA Fall on same level from slipping, tripping and stumbling without subsequent striking against object, initial encounter; Y93.E1 Activity, personal bathing and showering; Y92.002 Bathroom of unspecified non-institutional (private) residence as the place of occurrence of the external cause
CPT/HCPCS: 73562; 99283; A9270-GY

== ENCOUNTER 2019-01-20 22:34 | Emergency (ER) | payer OTHER ==
[2019-01-20 23:02] VITALS: O2SAT 98
--- NOTE | 2019-01-20 23:47 | ERPHSYRPT ---
- History of Present Illness Time Seen by Provider: 01/20/19 23:30 Source: patient, family Exam Limitations: no limitations Patient Subjective Stated Complaint: Tylenol. steroid shot today at [facility] Triage Nursing Assessment: lungs clear, heart tones reg. no distress noted. abd soft with active bs x4 quad. pt states has a sinus infection and hasn't been able to taste or smell x4 days. Pt has steroid shot today at [facility]. Physician History: 28 y/o white female with h/o cva approx 1.5 years ago, presents with a migraine headache. sx similar to, but not as bad, as when she had her cva. frontal headache with pain behind her eyes. assoc nausea. since her cva, pt has had two episodes of migraine. tylenol has helped in the past but did not help when her headache began over 24 hours ago. not the worst headache she has ever had. 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 pt seen at [facility] yesterday and given injection of steroid and no other treatment Timing/Duration: yesterday, worse Head Pain Location: frontal Severity of Pain-Max: moderate Severity of Pain-Current: moderate Recent Head Trauma: no recent headache/trauma Modifying Factors: Improves With: exposure to light Associated Symptoms: denies symptoms, nausea/vomiting, sensitive to light, No confusion, No dizziness, No fever/chills, No flushing, No light-headedness, No loss of consciousness Previous symptoms: same symptoms as today Allergies/Adverse Reactions: codeine [From Tylenol-Codeine] Allergy (Verified 04/29/18 07:08) Hx Tetanus, Diphtheria Vaccination/Date Given: Yes Hx Influenza Vaccination/Date Given: Yes Hx Pneumococcal Vaccination/Date Given: No Immunizations Up to Date: Yes - Review of Systems Constitutional: No Symptoms Eyes: Photophobia Ears, Nose, & Throat: No Symptoms Respiratory: No Symptoms Cardiac: No Symptoms Abdominal/Gastrointestinal: No Symptoms Genitourinary Symptoms: No Symptoms Musculoskeletal: No Symptoms Skin: No Symptoms Neurological: Headache Psychological: No Symptoms Endocrine: No Symptoms Hematologic/Lymphatic: No Symptoms Immunological/Allergic: No Symptoms All Other Systems: Reviewed and Negative - Past Medical History Pertinent Past Medical History: Yes Neurological History: Migraines, Stroke ENT History: No Pertinent History Cardiac History: No Pertinent History Respiratory History: Asthma Endocrine Medical History: No Pertinent History Musculoskeletal History: No Pertinent History GI Medical History: Gallbladder Disease History: No Pertinent History Psycho-Social History: Depression Female Reproductive Disorders: Other Other Medical History: CVA 2017, R sided weakness - Past Surgical History Past Surgical History: Yes Neuro Surgical History: No Pertinent History Cardiac: No Pertinent History Respiratory: No Pertinent History Gastrointestinal: No Pertinent History Genitourinary: No Pertinent History Musculoskeletal: No Pertinent History Female Surgical History: No Pertinent History, Dilation & Curettage Other Surgical History: TONSILLECTOMY - Social History Smoking Status: Former smoker How long have you smoked: 1 Exposure to second hand smoke: No Alcohol Use: Socially Drug Use: none Patient Lives Alone: No Significant Family History: heart disease, cancer, hypertension - Female History Hx Last Menstrual Period: 01/17/19 Hx Now: No - Nursing Vital Signs Nursing Vital Signs: Initial Vital Signs Temperature 98.6 F 01/20/19 22:59 Pulse Rate 96 H 01/20/19 22:59 Respiratory Rate 18 01/20/19 22:59 Blood Pressure 136/84 01/20/19 22:59 O2 Sat by Pulse Oximetry 98 01/20/19 22:59 Pain Scale Pain Intensity 8 - Physical Exam General Appearance: mild distress, alert, anxiety Eye Exam: PERRL/EOMI, photophobia Ears, Nose, Throat Exam: normal ENT inspection, moist mucous membranes Neck Exam: normal inspection, non-tender, supple, full range of motion Respiratory Exam: normal breath sounds, lungs clear, airway intact, No chest tenderness, No respiratory distress Cardiovascular Exam: regular rate/rhythm, normal heart sounds, normal peripheral pulses Gastrointestinal/Abdominal Exam: soft, normal bowel sounds, No tenderness Back Exam: normal inspection, normal range of motion, No CVA tenderness, No vertebral tenderness Extremity Exam: normal inspection, normal range of motion, pelvis stable Mental Status Exam: alert, 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, 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: normal hearing, normal speech, tongue midline Coordination/Gait Exam: normal finger to nose, normal gait, normal cerebellar function Motor/Sensory Exam: no motor deficit, no sensory deficit, no pronator drift Skin Exam: normal color, warm, dry Lymphatic Exam: No adenopathy SpO2 Interpretation: normal SpO2: 98 O2 Delivery: Room Air - Course Nursing assessment & vital signs reviewed: Yes Ordered Tests: Active Orders 24 hr Category Date Time Status HEAD WITHOUT CONTRAST [CT] Stat Exams 01/20/19 23:47 Taken Medication Summary Discontinued Medications Generic Name Dose Route Start Last Admin Trade Name Berny PRN Reason Stop Dose Admin Hydromorphone HCl 1 mg 01/21/19 00:13 01/21/19 00:23 Hydromorphone 1 Mg/Ml Ampule IM 01/21/19 00:14 1 mg STAT ONE Administration Hydromorphone HCl Confirm 01/21/19 00:19 Hydromorphone 1 Mg/Ml Ampule Administered 01/21/19 00:20 Dose 1 mg .ROUTE .STK-MED ONE Promethazine HCl 12.5 mg 01/21/19 00:14 01/21/19 00:23 Phenergan 25 Mg Inj IM 01/21/19 00:15 12.5 mg STAT ONE Administration Promethazine HCl Confirm 01/21/19 00:19 Phenergan 25 Mg Inj Administered 01/21/19 00:20 Dose 25 mg .ROUTE .STK-MED ONE - Progress Progress: improved, re-examined Air Movement: good Progress Note: 01/21/19 00:52 ct head- no acute intracranial process; extensive sinusitis. Blood Culture(s) Obtained: No Antibiotics given: Yes Counseled pt/family regarding: diagnosis, need for follow-up, rad results - Departure Departure Disposition: Home Clinical Impression: Migraine headache, Sinusitis Condition: Stable Critical Care Time: No Referrals: MUNA LANTIGUA MD [Primary Care Provider] - Additional Instructions: take medications as prescribed. follow up with neurologist for further management of your headaches. Prescriptions: Amoxicillin 500 mg Cap [Amoxil 500 mg] 500 mg PO TID #30 capsule Prednisone 10 mg [Deltasone 10 mg] 10 mg PO TID #12 tablet
[2019-01-21] MEDS ORDERED: Phenergan 25 MG INJ ONE (00:19)
[2019-01-21] MEDS ORDERED: Hydromorphone 1 mg/ml Ampule ONE (00:19)
[2019-01-21] MEDS: Phenergan 25 MG INJ IM ONE (00:23)
[2019-01-21] MEDS: Hydromorphone 1 mg/ml Ampule IM ONE (00:23)
[2019-01-21] MEDS ORDERED: DELTASONE 20 MG ONE ×2 (01:07→01:09)
[2019-01-21] MEDS ORDERED: AMOXIL 500 MG ONE (01:08)
[2019-01-21] MEDS: DELTASONE 10 MG PO ONE (01:10)
[2019-01-21] MEDS: AMOXIL 500 MG PO ONE (01:10)
[2019-01-21 01:21] VITALS: BP 130/72; PULSE 90
--- NOTE | 2019-01-21 08:38 | XRAY ---
Indication: Frontal headache. Right sided numbness and weakness Multiple contiguous axial images obtained through the head without contrast. Comparison: March 15, 2018. Stable small focus left occipital lobe remote infarct. No acute intracranial hemorrhage, abnormal extra-axial fluid collection, or mass effect. Fourth ventricle is midline without hydrocephalus. Bony calvarium intact again with hyperostosis frontalis interna. There is now near-complete opacification of the paranasal sinuses bilaterally. Mastoid air cells are clear. Impression: 1. Stable small remote left occipital lobe infarct. 2. New pansinusitis. 3. No acute intracranial abnormalities. Comment: Preliminary interpretation was made by [facility]. No discrepancy. CT DI 68.65
== END 2019-01-21 01:17 | disposition home or self-care (01) ==
LOC: ED 22:34
DX: G43.909 Migraine, unspecified, not intractable, without status migrainosus (principal); J32.9 Chronic sinusitis, unspecified
CPT/HCPCS: 70450; 96372; 99284; J1170; J2550; A9270-GY

== ENCOUNTER 2020-07-10 20:57 | Emergency (ER) | payer OTHER ==
[2020-07-10] MEDS ORDERED: TYLENOL 325 MG ONE (21:16)
[2020-07-10] MEDS: TYLENOL 325 MG PO ONE (21:17)
--- NOTE | 2020-07-10 21:17 | ERPHSYRPT ---
- History of Present Illness Time Seen by Provider: 07/10/20 21:04 Source: patient Exam Limitations: no limitations Physician History: Pt states she has had right lower back pain for the past 14 hours; states she does a lot of bending at her work. Pt also states she is 6 weeks . Pt denies chest pain, shortness of air, abdominal pain, vaginal discharge, recent i njury, fever, cough; admits to intermittent nausea & vomiting for the past 3 weeks and chronic intermittent diarrhea for years. Allergies/Adverse Reactions: codeine [From Tylenol-Codeine] Allergy (Verified 07/10/20 21:04) Hx Tetanus, Diphtheria Vaccination/Date Given: Yes Hx Influenza Vaccination/Date Given: Yes Hx Pneumococcal Vaccination/Date Given: No Travel Risk - International Travel Have you traveled outside of the country in past 3 weeks: No - Coronavirus Screening Are you exhibiting any of the following symptoms?: Yes Symptoms: Vomiting/Diarrhea Close contact with a COVID-19 positive Pt in past 14-21 Days: No - Review of Systems Constitutional: No Fever Respiratory: No Cough, No Dyspnea Cardiac: No Chest Pain Abdominal/Gastrointestinal: Nausea, Vomiting, Diarrhea, No Abdominal Pain Musculoskeletal: Back Pain All Other Systems: Reviewed and Negative - Past Medical History Pertinent Past Medical History: Yes Neurological History: Migraines, Stroke ENT History: No Pertinent History Cardiac History: No Pertinent History Respiratory History: Asthma Endocrine Medical History: No Pertinent History Musculoskeletal History: No Pertinent History GI Medical History: Gallbladder Disease History: No Pertinent History Psycho-Social History: Depression Female Reproductive Disorders: Other Other Medical History: CVA 2017, R sided weakness - Past Surgical History Past Surgical History: Yes Neuro Surgical History: No Pertinent History Cardiac: No Pertinent History Respiratory: No Pertinent History Gastrointestinal: No Pertinent History Genitourinary: No Pertinent History Musculoskeletal: No Pertinent History Female Surgical History: No Pertinent History, Dilation & Curettage Other Surgical History: TONSILLECTOMY - Social History Smoking Status: Former smoker How long have you smoked: 1 Exposure to second hand smoke: No Alcohol Use: Socially Drug Use: none Patient Lives Alone: No Significant Family History: heart disease, cancer, hypertension - Nursing Vital Signs Nursing Vital Signs: Initial Vital Signs Temperature 98 F 07/10/20 21:04 Pulse Rate 128 H 07/10/20 21:04 Respiratory Rate 16 07/10/20 21:04 Blood Pressure 134/98 07/10/20 21:04 O2 Sat by Pulse Oximetry 100 07/10/20 21:04 Pain Scale Pain Intensity [] 6 Pain Intensity 4 - Physical Exam General Appearance: alert Eye Exam: PERRL/EOMI Ears, Nose, Throat Exam: pharynx normal Neck Exam: normal inspection Respiratory Exam: lungs clear Cardiovascular Exam: normal heart sounds Gastrointestinal Exam: normal bowel sounds Back Exam: other (mild right lower back tenderness.) Extremity Exam: other (straight leg raising of the right leg creates right lower back pain.), No pedal edema Peripheral Pulses: dorsalis-pedis (R): 2+, dorsalis-pedis (L): 2+ Neurologic Exam: alert, cooperative, sensation nml, No motor deficits Skin Exam: warm, dry SpO2 Interpretation: normal SpO2: 100 O2 Delivery: Room Air - Course Nursing assessment & vital signs reviewed: Yes - Radiology Ultrasound Exam Pelvis Ultrasound: Other (tech report: 5 week 4 days sac present in uterine fundus; no pole.) Ordered Tests: Active Orders 24 hr Category Date Time Status OB <14 WKS 1ST GESTATION [US] Stat Exams 07/10/20 22:51 Taken AMYLASE Stat Lab 07/10/20 21:40 Completed CBC W DIFF Stat Lab 07/10/20 21:40 Completed CMP Stat Lab 07/10/20 21:40 Completed HCG, Quantitative (Inhouse) Stat Lab 07/10/20 21:40 Completed LIPASE Stat Lab 07/10/20 21:40 Completed MAGNESIUM Stat Lab 07/10/20 21:40 Completed UA W/RFX UR CULTURE Stat Lab 07/10/20 21:20 Completed Medication Summary Discontinued Medications Generic Name Dose Route Start Last Admin Trade Name Berny PRN Reason Stop Dose Admin Acetaminophen 650 mg 07/10/20 21:11 07/10/20 21:17 Tylenol 325 Mg PO 07/10/20 21:12 650 mg STAT ONE Administration Acetaminophen Confirm 07/10/20 21:16 Tylenol 325 Mg Administered 07/10/20 21:17 Dose 650 mg .ROUTE .STK-MED ONE Lab/Rad Data: Laboratory Result Diagrams 07/10/20 21:40 07/10/20 21:40 Laboratory Results 07/10/20 07/10/20 07/10/20 Range/Units 21:40 21:40 21:40 WBC 12.3 H (4.0-10.5) K/mm3 RBC 4.83 (4.1-5.4) M/mm3 Hgb 14.0 (12.0-16.0) gm/dl Hct 42.7 (35-47) % MCV 88.4 (78-100) fl MCH 29.0 (26-32) pg MCHC 32.8 (32-36) g/dl RDW 13.6 (11.5-14.0) % Plt Count 276 (150-450) K/mm3 MPV 10.9 (7.5-11.0) fl Gran % 70.4 H (36.0-66.0) % Eos # (Auto) 0.08 (0-0.5) Absolute Lymphs (auto) 2.71 (1.0-4.6) Absolute Monos (auto) 0.84 (0.0-1.3) Lymphocytes % 22.0 L (24.0-44.0) % Monocytes % 6.8 (0.0-12.0) % Eosinophils % 0.6 (0.00-5.0) % Basophils % 0.2 (0.0-0.4) % Absolute Granulocytes 8.65 H (1.4-6.9) Basophils # 0.03 (0-0.4) Sodium 136 L (137-145) mmol/L Potassium 4.1 (3.5-5.1) mmol/L Chloride 103 (98-107) mmol/L Carbon Dioxide 25 (22-30) mmol/L Anion Gap 11.6 (5-15) MEQ/L BUN 7 (7-17) mg/dL Creatinine 0.61 (0.52-1.04) mg/dL Estimated GFR > 60.0 ML/MIN Glucose 103 (74-106) mg/dL Calcium 9.4 (8.4-10.2) mg/dL Magnesium 1.8 (1.6-2.3) mg/dL Total Bilirubin 0.20 (0.2-1.3) mg/dL AST 27 (14-36) U/L ALT 19 (0-35) U/L Alkaline Phosphatase 51 (38-126) U/L Serum Total Protein 7.8 (6.3-8.2) g/dL Albumin 4.4 (3.5-5.0) g/dL Amylase 58 (30-110) U/L Lipase 35 (23-300) U/L Beta HCG, Quant 30598 mIU/ml Urine Color (YELLOW) Urine Appearance (CLEAR) Urine pH (5-6) Ur Specific [place] (1.005-1.025) Urine Protein (Negative) Urine Ketones (NEGATIVE) Urine Blood (0-5) Kermit/ul Urine Nitrite (NEGATIVE) Urine Bilirubin (NEGATIVE) Urine Urobilinogen (0-1) mg/dL Ur Leukocyte Esterase (NEGATIVE) Urine WBC (Auto) (0-5) /HPF Urine RBC (Auto) (0-2) /HPF U Epithel Cells (Auto) (FEW) /HPF Urine Bacteria (Auto) (NEGATIVE) /HPF Urine Mucus (Auto) (NEGATIVE) /HPF Urine Culture Reflexed (NO) Urine Glucose (NEGATIVE) mg/dL 07/10/20 Range/Units 21:20 WBC (4.0-10.5) K/mm3 RBC (4.1-5.4) M/mm3 Hgb (12.0-16.0) gm/dl Hct (35-47) % MCV (78-100) fl MCH (26-32) pg MCHC (32-36) g/dl RDW (11.5-14.0) % Plt Count (150-450) K/mm3 MPV (7.5-11.0) fl Gran % (36.0-66.0) % Eos # (Auto) (0-0.5) Absolute Lymphs (auto) (1.0-4.6) Absolute Monos (auto) (0.0-1.3) Lymphocytes % (24.0-44.0) % Monocytes % (0.0-12.0) % Eosinophils % (0.00-5.0) % Basophils % (0.0-0.4) % Absolute Granulocytes (1.4-6.9) Basophils # (0-0.4) Sodium (137-145) mmol/L Potassium (3.5-5.1) mmol/L Chloride (98-107) mmol/L Carbon Dioxide (22-30) mmol/L Anion Gap (5-15) MEQ/L BUN (7-17) mg/dL Creatinine (0.52-1.04) mg/dL Estimated GFR ML/MIN Glucose (74-106) mg/dL Calcium (8.4-10.2) mg/dL Magnesium (1.6-2.3) mg/dL Total Bilirubin (0.2-1.3) mg/dL AST (14-36) U/L ALT (0-35) U/L Alkaline Phosphatase (38-126) U/L Serum Total Protein (6.3-8.2) g/dL Albumin (3.5-5.0) g/dL Amylase (30-110) U/L Lipase (23-300) U/L Beta HCG, Quant mIU/ml Urine Color YELLOW (YELLOW) Urine Appearance SLIGHTLY CLOUDY (CLEAR) Urine pH 8.0 (5-6) Ur Specific [place] 1.016 (1.005-1.025) Urine Protein NEGATIVE (Negative) Urine Ketones NEGATIVE (NEGATIVE) Urine Blood SMALL (0-5) Kermit/ul Urine Nitrite NEGATIVE (NEGATIVE) Urine Bilirubin NEGATIVE (NEGATIVE) Urine Urobilinogen NEGATIVE (0-1) mg/dL Ur Leukocyte Esterase NEGATIVE (NEGATIVE) Urine WBC (Auto) 0-2 (0-5) /HPF Urine RBC (Auto) 0-2 (0-2) /HPF U Epithel Cells (Auto) FEW (FEW) /HPF Urine Bacteria (Auto) NONE (NEGATIVE) /HPF Urine Mucus (Auto) SLIGHT (NEGATIVE) /HPF Urine Culture Reflexed NO (NO) Urine Glucose NEGATIVE (NEGATIVE) mg/dL - Progress Progress: unchanged Counseled pt/family regarding: lab results, need for follow-up - Departure Departure Disposition: Home Clinical Impression: Back pain, , Nausea & vomiting, Diarrhea Condition: Stable Critical Care Time: No Referrals: MUNA LANTIGUA MD [Primary Care Provider] - Instructions: Low Back Pain (DC) Additional Instructions: Follow up with Dr. Lantigua today. Forms: Work/School Release Form Prescriptions: Promethazine HCl 25 mg [Phenergan 25 mg] 25 mg PO Q6HPRN PRN #14 tablet PRN Reason: Nausea/Vomiting
[2020-07-10 21:45] LABS: Appearance SLIGHTLY CLOUDY (CLEAR); Bilirubin NEGATIVE (NEGATIVE); Blood SMALL Ery/ul (0-5); Epithelial Cells FEW /HPF (FEW); Glucose NEGATIVE (NEGATIVE); Ketones NEGATIVE (NEGATIVE); Leukocyte Esterase NEGATIVE (NEGATIVE); Mucus SLIGHT /HPF (NEGATIVE); Nitrite NEGATIVE (NEGATIVE); Protein,Urine Dip NEGATIVE (Negative); RBC 0-2 /HPF (0-2); Specific Gravity 1.016 (1.005-1.025); Urobilinogen NEGATIVE mg/dL (0-1); WBC 0-2 /HPF (0-5)
[2020-07-10 21:47] LABS: Absolute Neutrophil Ct (ANC) 8.65 (1.4-6.9); BASOPHIL % 0.2 % (0.0-0.4); Basophil (Absolute #) 0.03 (0-0.4); Eosinophil % 0.6 % (0.00-5.0); Eosinophil (Absolute #) 0.08 (0-0.5); Hematocrit 42.7 % (35-47); Lymphocyte (Absolute #) 2.71 (1.0-4.6); Mean Cell Volume 88.4 fl (78-100); Mean Corpuscular Hgb Concent. 32.8 g/dl (32-36); Mean Platelet Volume 10.9 fl (7.5-11.0); Monocyte (Absolute #) 0.84 (0.0-1.3); Monocytes % 6.8 % (0.0-12.0); Neutrophil % 70.4 % (36.0-66.0); Platelet Count 276 K/mm3 (150-450); Red Blood Count 4.83 M/mm3 (4.1-5.4); Red Cell Distribution Width 13.6 % (11.5-14.0); White Blood Count 12.3 K/mm3 (4.0-10.5)
[2020-07-10 22:01] LABS: ALBUMIN 4.4 g/dL (3.5-5.0); ALKALINE PHOSPHATASE 51 U/L (38-126); AMYLASE 58 U/L (30-110); ANION GAP 11.6 MEQ/L (5-15); BLOOD UREA NITROGEN 7 mg/dL (7-17); CHLORIDE 103 mmol/L (98-107); Calcium 9.4 mg/dL (8.4-10.2); Carbon Dioxide 25 mmol/L (22-30); Creatinine 1 0.61 mg/dL (0.52-1.04); EST GLOMERULAR FILTRATION RATE > 60.0 ML/MIN; Glucose 103 mg/dL (74-106); LIPASE 35 U/L (23-300); MAGNESIUM 1.8 mg/dL (1.6-2.3); Potassium 4.1 mmol/L (3.5-5.1); SGOT/AST 27 U/L (14-36); SGPT/ALT 19 U/L (0-35); SODIUM 136 mmol/L (137-145); Total Protein 7.8 g/dL (6.3-8.2)
[2020-07-11] VITALS: O2SAT 100
[2020-07-11 00:04] VITALS: BP 126/78; PULSE 109
--- NOTE | 2020-07-11 08:40 | XRAY ---
Indication: Back pain. Two-dimensional transabdominal early OB ultrasound performed. Comparison: None for this . There is a single intrauterine gestational sac measuring 1.32 cm corresponding to 5 weeks 4 days. No pole/heart tones presumed early . Right ovary demonstrates 2.6 cm corpus luteal cyst. Left ovary not seen. No suspicious adnexal mass or free fluid. Impression: Single intrauterine gestational sac measuring 5 weeks 4 days. No pole/heart tones presumed early .. Correlate with serial beta-hCG and follow-up sonogram regarding viability. Comment: Preliminary report was given.
== END 2020-07-11 00:10 | disposition home or self-care (01) ==
LOC: ED 20:57
DX: O21.0 Mild hyperemesis gravidarum (principal); M54.9 Dorsalgia, unspecified; R19.7 Diarrhea, unspecified; Z3A.01 Less than 8 weeks gestation of pregnancy
CPT/HCPCS: 36415; 76801; 80053; 81001; 82150; 83690; 83735; 84702; 85025; 99284; A9270-GY

== ENCOUNTER 2020-10-08 21:28 | Emergency (ER) | payer OTHER ==
[2020-10-08] MEDS ORDERED: Sodium Chloride 0.9% 1000 ML 1,000 ML IV STA (21:48)
[2020-10-08] MEDS ORDERED: Sodium Chloride 0.9% 1000 ML 1,000 ML ONE (21:59)
--- NOTE | 2020-10-08 21:59 | ERPHSYRPT ---
- History of Present Illness Time Seen by Provider: 10/08/20 21:54 Historian: patient Exam Limitations: no limitations Patient Subjective Stated Complaint: . Triage Nursing Assessment: . Physician History: pt is 19 weeks with prior hx miscarriage of similar symptoms of pain , now radiating into both flanks ands back - no N or V; No fever. No trauma. No bleeding. Had US last week " not showing heart of fetus well" per patient report and has been referred to Dr. Garcia ( OB) and has appt in 2 weeks . But had onset of pain this evening and so came in to ER. She is tender mildly to palpation over abdomen without peritoneal signs . gravid uterus . Timing/Duration: today Activities at Onset: none Quality: cramping, dullness, fullness, pressure Abdominal Pain Onset Location: periumbilical, generalized abdomen, flank Pain Radiation: flank, back Severity of Pain-Max: moderate Severity of Pain-Current: moderate Allergies/Adverse Reactions: codeine [From Tylenol-Codeine] Allergy (Intermediate, Verified 10/08/20 21:38) Vomiting Home Medications: Vits W-Ca,Fe,FA(<1Mg) [] 1 each PO DAILY 10/08/20 [History] Hx Tetanus, Diphtheria Vaccination/Date Given: Yes Hx Influenza Vaccination/Date Given: Yes Hx Pneumococcal Vaccination/Date Given: No Immunizations Up to Date: Yes Travel Risk - International Travel Have you traveled outside of the country in past 3 weeks: No - Coronavirus Screening Are you exhibiting any of the following symptoms?: No Close contact with a COVID-19 positive Pt in past 14-21 Days: No - Review of Systems Constitutional: No Fever, No Chills Eyes: No Symptoms Ears, Nose, & Throat: No Symptoms Respiratory: No Cough, No Dyspnea Cardiac: No Chest Pain, No Edema, No Syncope Abdominal/Gastrointestinal: Abdominal Pain, No Nausea, No Vomiting, No Diarrhea Genitourinary Symptoms: No Dysuria Musculoskeletal: Back Pain, No Neck Pain Skin: No Rash Neurological: No Dizziness, No Focal Weakness, No Sensory Changes Psychological: No Symptoms Endocrine: No Symptoms Hematologic/Lymphatic: No Symptoms Immunological/Allergic: No Symptoms All Other Systems: Reviewed and Negative - Past Medical History Pertinent Past Medical History: Yes Neurological History: Migraines, Stroke ENT History: No Pertinent History Cardiac History: No Pertinent History Respiratory History: Asthma Endocrine Medical History: No Pertinent History Musculoskeletal History: No Pertinent History GI Medical History: Gallbladder Disease History: No Pertinent History Psycho-Social History: Depression Female Reproductive Disorders: Other Other Medical History: CVA 2017, R sided weakness. Miscarriage 2017 - Past Surgical History Past Surgical History: Yes Neuro Surgical History: No Pertinent History Cardiac: No Pertinent History Respiratory: No Pertinent History Gastrointestinal: No Pertinent History Genitourinary: No Pertinent History Musculoskeletal: No Pertinent History Female Surgical History: No Pertinent History, Dilation & Curettage Other Surgical History: TONSILLECTOMY - Social History Smoking Status: Former smoker How long have you smoked: 1 Exposure to second hand smoke: No Alcohol Use: Socially Drug Use: none Patient Lives Alone: No Significant Family History: heart disease, cancer, hypertension - Female History Hx Now: Yes Expected Date of Delivery: 03/03/21 - Nursing Vital Signs Nursing Vital Signs: Initial Vital Signs Temperature 97.6 F 10/08/20 21:40 Pulse Rate 118 H 10/08/20 21:40 Respiratory Rate 20 10/08/20 21:40 Blood Pressure 129/89 10/08/20 21:40 O2 Sat by Pulse Oximetry 100 10/08/20 21:40 Pain Scale Pain Intensity 2 - Physical Exam General Appearance: no apparent distress, alert Eye Exam: PERRL/EOMI, eyes nml inspection Ears, Nose, Throat Exam: normal ENT inspection, pharynx normal, moist mucous membranes Neck Exam: normal inspection, non-tender, supple, full range of motion Respiratory Exam: normal breath sounds, lungs clear, No respiratory distress Cardiovascular Exam: regular rate/rhythm, normal heart sounds Gastrointestinal/Abdomen Exam: soft, tenderness, guarding, No mass Pelvic Exam: normal external exam, other (no vaginal bleeding; cervical os closed), No adnexal tenderness, No adnexal mass, No mass, No cervical motion tenderness, No vaginal bleeding, No uterine tenderness, No vaginal discharge Rectal Exam: deferred Back Exam: normal inspection, normal range of motion, No CVA tenderness, No vertebral tenderness Extremity Exam: normal inspection, normal range of motion, pelvis stable Neurologic Exam: alert, 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, cooperative, normal mood/affect, nml cerebellar function, sensation nml, No motor deficits Skin Exam: normal color, warm, dry SpO2 Interpretation: normal SpO2: 100 O2 Delivery: Room Air - Course Nursing assessment & vital signs reviewed: Yes - Radiology Ultrasound Exam OB Ultrasound: Other (intrauterine prenancy with normal HT and heart - closed cerv OS ) Ordered Tests: Active Orders 24 hr Category Date Time Status IV Insertion STAT Care 10/08/20 21:48 Active OB >14 WKS 1st GESTATION [US] Stat Exams 10/08/20 21:50 Taken AMYLASE Stat Lab 10/08/20 22:20 Completed CBC W DIFF Stat Lab 10/08/20 22:20 Completed CMP Stat Lab 10/08/20 22:20 Completed CULTURE,URINE Stat Lab 10/08/20 21:55 Received HCG, Quantitative (Inhouse) Stat Lab 10/08/20 22:20 Completed LIPASE Stat Lab 10/08/20 22:20 Completed Lactic Acid Stat Lab 10/08/20 22:20 Completed UA W/RFX UR CULTURE Stat Lab 10/08/20 21:55 Completed Medication Summary Discontinued Medications Generic Name Dose Route Start Last Admin Trade Name Freq PRN Reason Stop Dose Admin Sodium Chloride 1,000 mls @ 999 mls/hr 10/08/20 21:48 10/08/20 22:24 Sodium Chloride 0.9% 1000 Ml IV 10/08/20 22:48 999 mls/hr .Q1H1M STA Administration Sodium Chloride Confirm 10/08/20 21:59 Sodium Chloride 0.9% 1000 Ml Administered 10/08/20 22:00 Dose 1,000 mls @ ud .ROUTE .STK-MED ONE Lab/Rad Data: Laboratory Result Diagrams 10/08/20 22:20 10/08/20 22:20 Laboratory Results 10/08/20 10/08/20 10/08/20 Range/Units 22:20 22:20 22:20 WBC (4.0-10.5) K/mm3 RBC (4.1-5.4) M/mm3 Hgb (12.0-16.0) gm/dl Hct (35-47) % MCV (78-100) fl MCH (26-32) pg MCHC (32-36) g/dl RDW (11.5-14.0) % Plt Count (150-450) K/mm3 MPV (7.5-11.0) fl Gran % (36.0-66.0) % Eos # (Auto) (0-0.5) Absolute Lymphs (auto) (1.0-4.6) Absolute Monos (auto) (0.0-1.3) Lymphocytes % (24.0-44.0) % Monocytes % (0.0-12.0) % Eosinophils % (0.00-5.0) % Basophils % (0.0-0.4) % Absolute Granulocytes (1.4-6.9) Basophils # (0-0.4) Sodium 133 L (137-145) mmol/L Potassium 4.1 (3.5-5.1) mmol/L Chloride 102 (98-107) mmol/L Carbon Dioxide 24 (22-30) mmol/L Anion Gap 11.1 (5-15) MEQ/L BUN 7 (7-17) mg/dL Creatinine 0.50 L (0.52-1.04) mg/dL Estimated GFR > 60.0 ML/MIN Glucose 78 (74-106) mg/dL Lactic Acid (0.4-2.0) Calcium 9.5 (8.4-10.2) mg/dL Total Bilirubin 0.30 (0.2-1.3) mg/dL AST 22 (14-36) U/L ALT 10 (0-35) U/L Alkaline Phosphatase 57 (38-126) U/L Serum Total Protein 7.6 (6.3-8.2) g/dL Albumin 4.0 (3.5-5.0) g/dL Amylase 56 (30-110) U/L Lipase 54 (23-300) U/L Beta HCG, Quant 75315 mIU/ml Urine Color (YELLOW) Urine Appearance (CLEAR) Urine pH (5-6) Ur Specific [place] (1.005-1.025) Urine Protein (Negative) Urine Ketones (NEGATIVE) Urine Blood (0-5) Kermit/ul Urine Nitrite (NEGATIVE) Urine Bilirubin (NEGATIVE) Urine Urobilinogen (0-1) mg/dL Ur Leukocyte Esterase (NEGATIVE) Urine WBC (Auto) (0-5) /HPF Urine RBC (Auto) (0-2) /HPF U Epithel Cells (Auto) (FEW) /HPF Urine Bacteria (Auto) (NEGATIVE) /HPF Urine Mucus (Auto) (NEGATIVE) /HPF Urine Culture Reflexed (NO) Urine Glucose (NEGATIVE) mg/dL ABO Group A Rh Factor POSITIVE Antibody Screen NEGATIVE (NEGATIVE) 10/08/20 10/08/20 10/08/20 Range/Units 22:20 22:20 21:55 WBC 10.5 (4.0-10.5) K/mm3 RBC 4.29 (4.1-5.4) M/mm3 Hgb 12.5 (12.0-16.0) gm/dl Hct 38.4 (35-47) % MCV 89.5 (78-100) fl MCH 29.1 (26-32) pg MCHC 32.6 (32-36) g/dl RDW 14.7 H (11.5-14.0) % Plt Count 240 (150-450) K/mm3 MPV 11.8 H (7.5-11.0) fl Gran % 70.1 H (36.0-66.0) % Eos # (Auto) 0.08 (0-0.5) Absolute Lymphs (auto) 2.32 (1.0-4.6) Absolute Monos (auto) 0.73 (0.0-1.3) Lymphocytes % 22.0 L (24.0-44.0) % Monocytes % 6.9 (0.0-12.0) % Eosinophils % 0.8 (0.00-5.0) % Basophils % 0.2 (0.0-0.4) % Absolute Granulocytes 7.39 H (1.4-6.9) Basophils # 0.02 (0-0.4) Sodium (137-145) mmol/L Potassium (3.5-5.1) mmol/L Chloride (98-107) mmol/L Carbon Dioxide (22-30) mmol/L Anion Gap (5-15) MEQ/L BUN (7-17) mg/dL Creatinine (0.52-1.04) mg/dL Estimated GFR ML/MIN Glucose (74-106) mg/dL Lactic Acid 1.1 (0.4-2.0) Calcium (8.4-10.2) mg/dL Total Bilirubin (0.2-1.3) mg/dL AST (14-36) U/L ALT (0-35) U/L Alkaline Phosphatase (38-126) U/L Serum Total Protein (6.3-8.2) g/dL Albumin (3.5-5.0) g/dL Amylase (30-110) U/L Lipase (23-300) U/L Beta HCG, Quant mIU/ml Urine Color YELLOW (YELLOW) Urine Appearance SLIGHTLY CLOUDY (CLEAR) Urine pH 5.0 (5-6) Ur Specific [place] 1.038 (1.005-1.025) Urine Protein 30 (Negative) Urine Ketones TRACE (NEGATIVE) Urine Blood NEGATIVE (0-5) Kermit/ul Urine Nitrite NEGATIVE (NEGATIVE) Urine Bilirubin NEGATIVE (NEGATIVE) Urine Urobilinogen 2 (0-1) mg/dL Ur Leukocyte Esterase NEGATIVE (NEGATIVE) Urine WBC (Auto) 0-2 (0-5) /HPF Urine RBC (Auto) 3-5 (0-2) /HPF U Epithel Cells (Auto) FEW (FEW) /HPF Urine Bacteria (Auto) NONE (NEGATIVE) /HPF Urine Mucus (Auto) SLIGHT (NEGATIVE) /HPF Urine Culture Reflexed YES (NO) Urine Glucose NEGATIVE (NEGATIVE) mg/dL ABO Group Rh Factor Antibody Screen (NEGATIVE) - Progress Progress: improved, re-examined Progress Note: 10/09/20 00:[address] Garcia OB fitness professional and discussed findings and presentation which he and pt are comfortable for outpt f/u tylenol for pain relief and stay on pelvic rest until symptoms resolved and will see him in office at appt in 2 weeks , also to see PCP for back pain management. 10/09/20 01:02 Pt is advised of limitations of testing and evaluation performed tonight and that there could be undetected pathology still evolving; she is comfortable with outpt followup rather than further testing in ER or hosp at this time , and has the capacity to make this choice. Discussed with : Dashawn Will see patient in: office Counseled pt/family regarding: lab results, diagnosis, need for follow-up, rad results - Departure Departure Disposition: Home Clinical Impression: , Back pain, Abdominal pain of unknown cause Condition: Good Critical Care Time: No Referrals: MUNA LANTIGUA MD [Primary Care Provider] - Instructions: Acute Abdomen (Belly Pain), Adult (DC), Low Back Pain (DC), Back Exercises, Stomach Pain Later in Additional Instructions: we have not determined an exact cause for your abdominal pain , but this can occur after sex in , and sometimes also when the fetus is active as was observed on ultrasound . while it is still possible that miscarriage may occur, there are no signs for that at this time. We have discussed your findings with Dr. Garcia who is now aware and you should keep your appointment as planned, and be on pelvic rest - no sex , until all discomfort has resolved. ALso contact Dr. Garcia meantime if abdominal pain continues . contact also your PCP for management of back pain in or Dr. Garcia. There is a slight protein in the urine to followup with Dr. Garcia also. Return meantime if any bleeding , increasing pain or other concerns.
[2020-10-08 22:38] LABS: Absolute Neutrophil Ct (ANC) 7.39 (1.4-6.9); BASOPHIL % 0.2 % (0.0-0.4); Basophil (Absolute #) 0.02 (0-0.4); Eosinophil % 0.8 % (0.00-5.0); Eosinophil (Absolute #) 0.08 (0-0.5); Hematocrit 38.4 % (35-47); Hemoglobin 12.5 gm/dl (12.0-16.0); Lymphocyte (Absolute #) 2.32 (1.0-4.6); Mean Cell Volume 89.5 fl (78-100); Mean Corpuscular Hemoglobin 29.1 pg (26-32); Mean Corpuscular Hgb Concent. 32.6 g/dl (32-36); Mean Platelet Volume 11.8 fl (7.5-11.0); Monocyte (Absolute #) 0.73 (0.0-1.3); Monocytes % 6.9 % (0.0-12.0); Neutrophil % 70.1 % (36.0-66.0); Platelet Count 240 K/mm3 (150-450); Red Blood Count 4.29 M/mm3 (4.1-5.4); Red Cell Distribution Width 14.7 % (11.5-14.0); White Blood Count 10.5 K/mm3 (4.0-10.5)
[2020-10-08 22:41] LABS: Appearance SLIGHTLY CLOUDY (CLEAR); Bilirubin NEGATIVE (NEGATIVE); Blood NEGATIVE Ery/ul (0-5); Epithelial Cells FEW /HPF (FEW); Glucose NEGATIVE (NEGATIVE); Ketones TRACE (NEGATIVE); Leukocyte Esterase NEGATIVE (NEGATIVE); Mucus SLIGHT /HPF (NEGATIVE); Nitrite NEGATIVE (NEGATIVE); Protein,Urine Dip 30 (Negative); Specific Gravity 1.038 (1.005-1.025); Urobilinogen 2 mg/dL (0-1); WBC 0-2 /HPF (0-5)
[2020-10-08 22:49] LABS: ALKALINE PHOSPHATASE 57 U/L (38-126); AMYLASE 56 U/L (30-110); ANION GAP 11.1 MEQ/L (5-15); BLOOD UREA NITROGEN 7 mg/dL (7-17); CHLORIDE 102 mmol/L (98-107); Calcium 9.5 mg/dL (8.4-10.2); Carbon Dioxide 24 mmol/L (22-30); EST GLOMERULAR FILTRATION RATE > 60.0 ML/MIN; Glucose 78 mg/dL (74-106); LIPASE 54 U/L (23-300); Potassium 4.1 mmol/L (3.5-5.1); SGOT/AST 22 U/L (14-36); SGPT/ALT 10 U/L (0-35); SODIUM 133 mmol/L (137-145); Total Protein 7.6 g/dL (6.3-8.2)
[2020-10-09 00:16] LABS: ABO TYPING A; RH TYPING POSITIVE
[2020-10-09 00:17] LABS: Antibody Screen NEGATIVE (NEGATIVE)
[2020-10-09] MEDS ORDERED: TYLENOL 325 MG PO STA (00:30)
[2020-10-09] MEDS ORDERED: TYLENOL 325 MG ONE (00:41)
[2020-10-09 01:10] VITALS: BP 98/67; PULSE 71; O2SAT 97
--- NOTE | 2020-10-09 08:44 | XRAY ---
Indication: Abdomen pain. Miscarriage. Limited 2-dimensional OB ultrasound performed. Comparison: October 03, 2020. Again there is a single viable intrauterine currently in breech presentation. heart rate 149 BPM. Posterior fundal placenta without abnormal retroplacental fluid. Cervix is closed and measures 3.8 cm in length. Clinical Resource Manager notes intermittent contractions. Impression: Again single viable intrauterine . Comment: Preliminary report was given.
== END 2020-10-09 01:19 | disposition home or self-care (01) ==
LOC: ED 21:28
DX: O26.892 Other specified pregnancy related conditions, second trimester (principal); R10.9 Unspecified abdominal pain; M54.9 Dorsalgia, unspecified
CPT/HCPCS: 36000; 36415; 76805; 80053; 81001; 82150; 83605; 83690; 84702; 85025; 86850; 86900; 86901; 87086; 96360; 99284; A9270-GY

== ENCOUNTER 2020-11-22 04:57 | Emergency (ER) | payer OTHER ==
[2020-11-22] MEDS ORDERED: AMOXIL 500 MG PO ONE (05:29)
[2020-11-22] MEDS ORDERED: PERCOCET TABLET 5/325MG PO ONE (05:34)
[2020-11-22] MEDS ORDERED: AMOXIL 500 MG ONE (05:34)
--- NOTE | 2020-11-22 05:34 | ERPHSYRPT ---
- History of Present Illness Time Seen by Provider: 11/22/20 05:25 Source: patient Exam Limitations: no limitations Patient Subjective Stated Complaint: pt states she has pain and swelling in her lt jaw that started yesterday, denies any dental pain. states she has tmj and normally has increased difficulty opeing her mouth wide. Triage Nursing Assessment: pt alert and oriented, answers questions approp. pt ambulatory with steady gait noted. respirations nonlabored. skin pink warm and dry. swelling noted to lt jaw, pt reports increased with with jaw movement. no broken teeth or poor dentition noted. Physician History: 30 years old 3 para 1 at 28 weeks gestation on Lovenox presented in the ER with chief complaint of left upper jaw pain with gradual onset progressively worsening for the last 2 days, moderate intensity sharp nature which is aggravated with movements of jaw and no significant relieving factors. She has history of TMJ problems and called her primary OB recommended to have mild carpal which does not seem helping. She has difficulty swallowing solid food as well but can take liquids very well. No fever or chills reported. Denies any abdominal/pelvic./Cramping or vaginal bleeding or discharge. Good movements as usual. Timing/Duration: gradual onset, days (2) Severity: moderate ENT Location: mouth, facial, dental Prearrival Treatment: over the counter meds Associated Symptoms: facial pain/swelling, jaw pain, No fever, No chills, No change in hearing Allergies/Adverse Reactions: codeine [From Tylenol-Codeine] Allergy (Intermediate, Verified 11/22/20 05:14) Vomiting Home Medications: Vits W-Ca,Fe,FA(<1Mg) [] 1 each PO DAILY 10/08/20 [History] Aspirin 162 mg PO DAILY 11/22/20 [History] Enoxaparin Sodium [Lovenox] 30 mg SQ BID 11/22/20 [History] Hx Tetanus, Diphtheria Vaccination/Date Given: Yes Hx Influenza Vaccination/Date Given: Yes Hx Pneumococcal Vaccination/Date Given: No Immunizations Up to Date: Yes Travel Risk - International Travel Have you traveled outside of the country in past 3 weeks: No - Coronavirus Screening Are you exhibiting any of the following symptoms?: No Close contact with a COVID-19 positive Pt in past 14-21 Days: No - Review of Systems Constitutional: No Symptoms Eyes: No Symptoms Ears, Nose, & Throat: Mouth Swelling Respiratory: No Symptoms Cardiac: No Symptoms Abdominal/Gastrointestinal: No Symptoms Genitourinary Symptoms: No Symptoms Musculoskeletal: No Symptoms Skin: No Symptoms Neurological: No Symptoms Psychological: No Symptoms Endocrine: No Symptoms Hematologic/Lymphatic: No Symptoms Immunological/Allergic: No Symptoms - Past Medical History Pertinent Past Medical History: Yes Neurological History: Migraines, Stroke ENT History: No Pertinent History Cardiac History: No Pertinent History Respiratory History: Asthma Endocrine Medical History: No Pertinent History Musculoskeletal History: No Pertinent History GI Medical History: Gallbladder Disease History: No Pertinent History Psycho-Social History: Depression Female Reproductive Disorders: Other Other Medical History: CVA 2017, R sided weakness. Miscarriage 2017 - Past Surgical History Past Surgical History: Yes Neuro Surgical History: No Pertinent History Cardiac: No Pertinent History Respiratory: No Pertinent History Gastrointestinal: No Pertinent History Genitourinary: No Pertinent History Musculoskeletal: No Pertinent History Female Surgical History: No Pertinent History, Dilation & Curettage Other Surgical History: TONSILLECTOMY - Social History Smoking Status: Former smoker How long have you smoked: 1 Exposure to second hand smoke: No Alcohol Use: Socially Drug Use: none Patient Lives Alone: No Significant Family History: heart disease, cancer, hypertension - Female History Hx Last Menstrual Period: 05/28/20 Hx Now: Yes Expected Date of Delivery: 03/03/22 Gestational Age: 25 weeks - Nursing Vital Signs Nursing Vital Signs: Initial Vital Signs Temperature 97.6 F 11/22/20 05:04 Pulse Rate 115 H 11/22/20 05:04 Respiratory Rate 16 11/22/20 05:04 Blood Pressure 122/86 11/22/20 05:04 O2 Sat by Pulse Oximetry 99 11/22/20 05:04 Pain Scale Pain Intensity 10 - Physical Exam General Appearance: no apparent distress, alert Eye Exam: bilateral eye: normal inspection, PERRL, EOMI Ear Exam: bilateral ear: auricle normal, canal normal, TM normal Nasal Exam: normal inspection Throat Exam: dental tenderness (Swollen left maxilla with some tenderness in the TMJ area. Limited opening of mouth because of pain. Diffuse tenderness along upper gumline. No click at the TMJ.), moist mucus membranes Neck Exam: supple, full range of motion, trachea midline, lymphadenopathy (L), tender lateral (Left upper neck/jaw angle ) Cardiovascular/Respiratory Exam: normal breath sounds, tachycardia Abdominal Exam: non-tender, soft (Gravid uterus) Neurologic Exam: alert, 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, cooperative, telephone quotation clerk II-XII nml as tested, normal mood/affect, sensation nml Skin Exam: normal color SpO2 Interpretation: normal SpO2: 99 O2 Delivery: Room Air - Progress Progress: improved Progress Note: 11/22/20 05:39 I believe patient has left upper jaw teeth infection with causing swelling around TMJ limiting its mobility. After informed consent about risk and benefits of pain medication she is okay with taking [place]. She is tachycardic which I believe is secondary to pain. Discussed with her primary OB Dr. Garcia and patient is started on amoxicillin and recommended outpatient follow-up with dentist in the morning for further evaluation Counseled pt/family regarding: diagnosis, need for follow-up - Departure Departure Disposition: Home Clinical Impression: Infected tooth Condition: Stable Critical Care Time: No Referrals: MUNA LANTIGUA MD [Primary Care Provider] - Follow Up with PCP/3 days SHAUN GARCIA DO [ACTIVE STAFF] - (1-2 days for reevaluation) Instructions: Dental Pain (DC), Temporomandibular Joint (TMJ) Disorders (DC) Additional Instructions: Take Tylenol as needed for pain. Continue with antibiotics. Follow-up with your primary dentist today for further evaluation and management. Follow-up with your OB for reevaluation. Keep yourself well-hydrated. Return to ER for increasing swelling difficulty movements of jaw or if develop fever chills/pelvic/abdominal cramping pain vaginal bleeding etc. Prescriptions: Amoxicillin 500 mg Cap [Amoxil 500 mg] 500 mg PO TID #30 capsule
[2020-11-22] MEDS ORDERED: NORCO 5/325 MG PO ONE (05:36)
[2020-11-22] MEDS ORDERED: NORCO 5/325 MG ONE (05:38)
[2020-11-22 05:59] VITALS: BP 138/91; PULSE 109; O2SAT 98
== END 2020-11-22 05:58 | disposition home or self-care (01) ==
LOC: ED 04:57
DX: R68.84 Jaw pain (principal); K04.7 Periapical abscess without sinus; Z3A.28 28 weeks gestation of pregnancy
CPT/HCPCS: 99284; A9270-GY

== ENCOUNTER 2020-11-30 14:24 | Observation (INO) | payer OTHER ==
[2020-11-30 15:13] VITALS: BP 125/66; PULSE 100
[2020-11-30 15:38] LABS: Appearance CLEAR (CLEAR); Bilirubin NEGATIVE (NEGATIVE); Blood MODERATE Ery/ul (0-5); Glucose NEGATIVE (NEGATIVE); Ketones NEGATIVE (NEGATIVE); Leukocyte Esterase NEGATIVE (NEGATIVE); Mucus SLIGHT /HPF (NEGATIVE); Nitrite NEGATIVE (NEGATIVE); Protein,Urine Dip NEGATIVE (Negative); Specific Gravity 1.003 (1.005-1.025); Urobilinogen NEGATIVE mg/dL (0-1)
== END 2020-11-30 16:05 | disposition home or self-care (01) ==
LOC: OB 14:24
PROVIDERS: ADMIT Obstetrics & Gynecology; ATTEND Obstetrics & Gynecology
DX: Z34.92 Encounter for supervision of normal pregnancy, unspecified, second trimester (principal); Z3A.26 26 weeks gestation of pregnancy
CPT/HCPCS: 81001; G0378

== ENCOUNTER 2021-01-05 10:39 | Observation (INO) | payer OTHER ==
[2021-01-05 10:54] VITALS: BP 130/74; PULSE 111
== END 2021-01-05 11:05 | disposition home or self-care (01) ==
LOC: OB 10:39
PROVIDERS: ADMIT Family Medicine; ATTEND Family Medicine
DX: Z34.83 Encounter for supervision of other normal pregnancy, third trimester (principal); Z3A.32 32 weeks gestation of pregnancy
CPT/HCPCS: 59025; G0378

== ENCOUNTER 2021-01-12 12:24 | Observation (INO) | payer OTHER ==
[2021-01-12 13:28] VITALS: BP 121/65; PULSE 103
== END 2021-01-12 13:30 | disposition home or self-care (01) ==
LOC: OB 12:24
PROVIDERS: ADMIT Family Medicine; ATTEND Family Medicine
DX: Z34.83 Encounter for supervision of other normal pregnancy, third trimester (principal); Z3A.32 32 weeks gestation of pregnancy
CPT/HCPCS: 59025; G0378

== ENCOUNTER 2021-01-19 10:52 | Observation (INO) | payer OTHER ==
[2021-01-22 09:54] VITALS: PULSE 104
[2021-01-22] MEDS ORDERED: Lactated Ringers 1,000 ML IV ONE (10:22)
[2021-01-22] MEDS ORDERED: BRETHINE 1 MG/ML SQ ONE (12:25)
[2021-01-22 14:02] VITALS: BP 135/71
== END 2021-01-22 13:50 | disposition home or self-care (01) ==
LOC: OB 01-22 09:08
PROVIDERS: ADMIT Family Medicine; ATTEND Family Medicine
DX: Z34.83 Encounter for supervision of other normal pregnancy, third trimester (principal); Z3A.34 34 weeks gestation of pregnancy
CPT/HCPCS: 96372; G0378

== ENCOUNTER 2021-02-02 09:03 | Observation (INO) | payer OTHER ==
[2021-02-02 09:30] VITALS: BP 137/80; PULSE 112; O2SAT 98
== END 2021-02-02 09:50 | disposition home or self-care (01) ==
LOC: OB 09:03
PROVIDERS: ADMIT Family Medicine; ATTEND Family Medicine
DX: Z34.83 Encounter for supervision of other normal pregnancy, third trimester (principal); Z3A.35 35 weeks gestation of pregnancy
CPT/HCPCS: 59025; G0378

== ENCOUNTER 2021-02-09 11:10 | Observation (INO) | payer OTHER ==
[2021-02-09 11:47] VITALS: BP 139/87; PULSE 106
[2021-02-09 12:06] LABS: Absolute Neutrophil Ct (ANC) 5.13 (1.4-6.9); BASOPHIL % 0.1 % (0.0-0.4); Basophil (Absolute #) 0.01 (0-0.4); Eosinophil % 0.7 % (0.00-5.0); Eosinophil (Absolute #) 0.05 (0-0.5); Hemoglobin 11.9 gm/dl (12.0-16.0); Lymphocyte (Absolute #) 1.21 (1.0-4.6); Lymphocytes % 17.4 % (24.0-44.0); Mean Cell Volume 88.3 fl (78-100); Mean Corpuscular Hemoglobin 28.4 pg (26-32); Mean Corpuscular Hgb Concent. 32.2 g/dl (32-36); Mean Platelet Volume 12.8 fl (7.5-11.0); Monocyte (Absolute #) 0.55 (0.0-1.3); Monocytes % 7.9 % (0.0-12.0); Neutrophil % 73.9 % (36.0-66.0); Platelet Count 154 K/mm3 (150-450); Red Blood Count 4.19 M/mm3 (4.1-5.4); Red Cell Distribution Width 13.8 % (11.5-14.0)
[2021-02-09 12:14] LABS: ALBUMIN 3.3 g/dL (3.5-5.0); ALKALINE PHOSPHATASE 95 U/L (38-126); ANION GAP 13.2 MEQ/L (5-15); BLOOD UREA NITROGEN 9 mg/dL (7-17); CHLORIDE 106 mmol/L (98-107); Calcium 8.8 mg/dL (8.4-10.2); Carbon Dioxide 20 mmol/L (22-30); Creatinine 1 0.46 mg/dL (0.52-1.04); EST GLOMERULAR FILTRATION RATE > 60.0 ML/MIN; Glucose 128 mg/dL (74-106); Potassium 3.9 mmol/L (3.5-5.1); SGOT/AST 19 U/L (14-36); SGPT/ALT 9 U/L (0-35); SODIUM 135 mmol/L (137-145); Total Protein 6.4 g/dL (6.3-8.2)
--- NOTE | 2021-02-09 13:55 | XRAY ---
Indication: well-being. Evaluate ANAI. Limited OB ultrasound performed to evaluate ANAI. Four-quadrant ANAI is 13.8 cm, largest pocket 4.9 cm. heart rate 150 BPM.
== END 2021-02-09 12:31 | disposition home or self-care (01) ==
LOC: OB 11:10
PROVIDERS: ADMIT Family Medicine; ATTEND Family Medicine
DX: O13.3 Gestational [pregnancy-induced] hypertension without significant proteinuria, third trimester (principal); Z3A.36 36 weeks gestation of pregnancy
CPT/HCPCS: 36415; 59025; 76815; 80053; 85025; G0378

== ENCOUNTER 2021-02-14 23:19 | Observation (INO) | payer OTHER ==
[2021-02-15 00:38] LABS: Amphetamine,Urine NEGATIVE (NEGATIVE); Appearance SLIGHTLY CLOUDY (CLEAR); Barbiturate,Urine NEGATIVE (NEGATIVE); Benzodiazepine,Urine NEGATIVE (NEGATIVE); Bilirubin NEGATIVE (NEGATIVE); Blood NEGATIVE Ery/ul (0-5); Cocaine,Urine NEGATIVE (NEGATIVE); Epithelial Cells RARE /HPF (FEW); Glucose NEGATIVE (NEGATIVE); Ketones NEGATIVE (NEGATIVE); Leukocyte Esterase SMALL (NEGATIVE); Methadone,Urine NEGATIVE (NEGATIVE); Mucus SLIGHT /HPF (NEGATIVE); Nitrite NEGATIVE (NEGATIVE); Opiate,Urine NEGATIVE (NEGATIVE); PCP,Urine NEGATIVE (NEGATIVE); Protein,Urine Dip 30 (Negative); Specific Gravity 1.018 (1.005-1.025); THC,Urine NEGATIVE (NEGATIVE); Urobilinogen NEGATIVE mg/dL (0-1)
[2021-02-15 05:57] VITALS: BP 137/83; PULSE 80; O2SAT 98
== END 2021-02-15 03:15 | disposition home or self-care (01) ==
LOC: MED SURG 23:19 → UNDOADMOB 23:19 → UNDODISOB 02-15 03:15
PROVIDERS: ADMIT Family Medicine; ATTEND Family Medicine
DX: Z34.83 Encounter for supervision of other normal pregnancy, third trimester (principal); Z3A.37 37 weeks gestation of pregnancy
CPT/HCPCS: 80307; 81001; 87086; G0378

== ENCOUNTER 2021-02-18 02:30 | Inpatient (IN) | payer OTHER ==
[2021-02-18] MEDS ORDERED: XYLOCAINE 1% HCL 20 ML MDV IJ PRN (17:00)
[2021-02-18] MEDS ORDERED: Zofran 4 MG/2 ML VIAL IV PRN (17:00)
[2021-02-18 17:54] LABS: Absolute Neutrophil Ct (ANC) 5.16 (1.4-6.9); BASOPHIL % 0.3 % (0.0-0.4); Basophil (Absolute #) 0.02 (0-0.4); Eosinophil % 0.7 % (0.00-5.0); Eosinophil (Absolute #) 0.05 (0-0.5); Hematocrit 38.4 % (35-47); Hemoglobin 12.3 gm/dl (12.0-16.0); Lymphocyte (Absolute #) 1.54 (1.0-4.6); Lymphocytes % 21.1 % (24.0-44.0); Mean Cell Volume 87.5 fl (78-100); Mean Platelet Volume 13.7 fl (7.5-11.0); Monocyte (Absolute #) 0.53 (0.0-1.3); Monocytes % 7.3 % (0.0-12.0); Neutrophil % 70.6 % (36.0-66.0); Platelet Count 178 K/mm3 (150-450); Red Blood Count 4.39 M/mm3 (4.1-5.4); Red Cell Distribution Width 13.8 % (11.5-14.0); White Blood Count 7.3 K/mm3 (4.0-10.5)
[2021-02-18 17:59] LABS: Appearance SLIGHTLY CLOUDY (CLEAR); Bacteria RARE /HPF (NEGATIVE); Bilirubin NEGATIVE (NEGATIVE); Blood NEGATIVE Ery/ul (0-5); Epithelial Cells FEW /HPF (FEW); Glucose NEGATIVE (NEGATIVE); Ketones NEGATIVE (NEGATIVE); Leukocyte Esterase MODERATE (NEGATIVE); Mucus SLIGHT /HPF (NEGATIVE); Nitrite NEGATIVE (NEGATIVE); Protein,Urine Dip 30 (Negative); Specific Gravity 1.014 (1.005-1.025); Urobilinogen NEGATIVE mg/dL (0-1); WBC 26-50 /HPF (0-5)
[2021-02-18 18:00] LABS: INR 0.98 (0.8-3.0); PROTIME 11.1 SECONDS (9.95-12.35)
[2021-02-18] MEDS ORDERED: BRETHINE 1 MG/ML SQ PRN (18:00)
[2021-02-18] MEDS ORDERED: Cervidil 10 MG VAG SCH (18:00)
[2021-02-18 18:09] LABS: Amphetamine,Urine NEGATIVE (NEGATIVE); Barbiturate,Urine NEGATIVE (NEGATIVE); Benzodiazepine,Urine NEGATIVE (NEGATIVE); Cocaine,Urine NEGATIVE (NEGATIVE); Methadone,Urine NEGATIVE (NEGATIVE); Opiate,Urine NEGATIVE (NEGATIVE); PCP,Urine NEGATIVE (NEGATIVE); THC,Urine NEGATIVE (NEGATIVE)
[2021-02-18] MEDS ORDERED: STADOL 2 MG IV PRN (19:48)
[2021-02-18] MEDS: Lactated Ringers 1,000 ML IV SCH (20:38)
[2021-02-18] MEDS: PITOCIN 30 UNITS/ LR 500 ML 30 UNITS/500 ML IV.SOLN. IV SCH (20:46)
[2021-02-18] MEDS: TYLENOL EXTRA STRENGTH 500 MG PO PRN (21:49)
[2021-02-19] MEDS ORDERED: Lactated Ringers 1,000 ML IV ONE
[2021-02-19] MEDS ORDERED: Ephedrine Sulfate 50 MG/ML IV PRN (01:00)
[2021-02-19] MEDS ORDERED: OB EPIDURAL NAROPIN/SUFENTANIL IN NACL EPIDURAL PRN (01:00)
[2021-02-19] MEDS: TYLENOL EXTRA STRENGTH 500 MG PO PRN ×2 (01:42→18:59)
[2021-02-19] MEDS ORDERED: PITOCIN 30 UNITS/ LR 500 ML 30 UNITS/500 ML IV.SOLN. IV SCH ×2 (06:00→12:00)
[2021-02-19] MEDS: PITOCIN 30 UNITS/ LR 500 ML 30 UNITS/500 ML IV.SOLN. IV SCH (06:02)
[2021-02-19] MEDS: Lactated Ringers 1,000 ML IV SCH ×3 (06:03→22:34)
[2021-02-19] MEDS ORDERED: CORTISONE 1% CREAM TP PRN (13:09)
[2021-02-19] MEDS ORDERED: Dermoplast Spray TP PRN (13:09)
[2021-02-19] MEDS ORDERED: Mylicon 80MG PO PRN (13:09)
[2021-02-19] MEDS ORDERED: TUCKS TP PRN (13:09)
[2021-02-19] MEDS ORDERED: Nubain 10 MG/ML IV ONE (13:32)
[2021-02-19] MEDS ORDERED: Adacel Vial IM ONE (14:00)
[2021-02-19] MEDS: MOTRIN 400 MG PO PRN ×2 (16:07→22:10)
[2021-02-19] MEDS: Colace 100 MG PO SCH (21:36)
[2021-02-20] MEDS: TYLENOL EXTRA STRENGTH 500 MG PO PRN ×2 (00:45→09:58)
[2021-02-20] MEDS: Lactated Ringers 1,000 ML IV SCH ×2 (02:03→11:16)
[2021-02-20] MEDS: MOTRIN 400 MG PO PRN ×3 (04:22→23:04)
[2021-02-20] MEDS: NORCO 5/325 MG PO PRN ×2 (04:22→18:45)
[2021-02-20 05:19] LABS: Absolute Neutrophil Ct (ANC) 4.63 (1.4-6.9); BASOPHIL % 0.1 % (0.0-0.4); Basophil (Absolute #) 0.01 (0-0.4); Eosinophil (Absolute #) 0.07 (0-0.5); Hematocrit 37.9 % (35-47); Hemoglobin 11.8 gm/dl (12.0-16.0); Lymphocyte (Absolute #) 1.67 (1.0-4.6); Lymphocytes % 24.1 % (24.0-44.0); Mean Cell Volume 88.8 fl (78-100); Mean Corpuscular Hemoglobin 27.6 pg (26-32); Mean Corpuscular Hgb Concent. 31.1 g/dl (32-36); Mean Platelet Volume 13.3 fl (7.5-11.0); Monocyte (Absolute #) 0.54 (0.0-1.3); Monocytes % 7.8 % (0.0-12.0); Platelet Count 139 K/mm3 (150-450); Red Blood Count 4.27 M/mm3 (4.1-5.4); Red Cell Distribution Width 13.8 % (11.5-14.0); White Blood Count 6.9 K/mm3 (4.0-10.5)
[2021-02-20] MEDS: Colace 100 MG PO SCH ×2 (09:58→21:29)
[2021-02-20] MEDS ORDERED: FERREX 150 PO SCH (10:00)
[2021-02-20 10:05] LABS: ALKALINE PHOSPHATASE 91 U/L (38-126); ANION GAP 11.3 MEQ/L (5-15); BLOOD UREA NITROGEN 5 mg/dL (7-17); CHLORIDE 105 mmol/L (98-107); Calcium 8.5 mg/dL (8.4-10.2); Carbon Dioxide 22 mmol/L (22-30); Creatinine 1 0.54 mg/dL (0.52-1.04); EST GLOMERULAR FILTRATION RATE > 60.0 ML/MIN; Glucose 92 mg/dL (74-106); Potassium 4.2 mmol/L (3.5-5.1); SGOT/AST 23 U/L (14-36); SGPT/ALT 8 U/L (0-35); SODIUM 134 mmol/L (137-145); Total Protein 5.6 g/dL (6.3-8.2)
[2021-02-20] MEDS ORDERED: ENOXAPARIN SODIUM SQ SCH (13:00)
[2021-02-21 03:23] VITALS: O2SAT 98
[2021-02-21 05:13] LABS: Absolute Neutrophil Ct (ANC) 3.87 (1.4-6.9); BASOPHIL % 0.2 % (0.0-0.4); Basophil (Absolute #) 0.01 (0-0.4); Eosinophil % 2.1 % (0.00-5.0); Eosinophil (Absolute #) 0.13 (0-0.5); Hematocrit 35.8 % (35-47); Hemoglobin 11.1 gm/dl (12.0-16.0); Lymphocyte (Absolute #) 1.85 (1.0-4.6); Lymphocytes % 29.3 % (24.0-44.0); Mean Cell Volume 89.3 fl (78-100); Mean Corpuscular Hemoglobin 27.7 pg (26-32); Mean Platelet Volume 12.9 fl (7.5-11.0); Monocyte (Absolute #) 0.46 (0.0-1.3); Monocytes % 7.3 % (0.0-12.0); Neutrophil % 61.1 % (36.0-66.0); Platelet Count 143 K/mm3 (150-450); Red Blood Count 4.01 M/mm3 (4.1-5.4); Red Cell Distribution Width 13.7 % (11.5-14.0); White Blood Count 6.3 K/mm3 (4.0-10.5)
[2021-02-21 05:16] LABS: ALKALINE PHOSPHATASE 77 U/L (38-126); ANION GAP 9.9 MEQ/L (5-15); BLOOD UREA NITROGEN 7 mg/dL (7-17); CHLORIDE 102 mmol/L (98-107); Calcium 8.9 mg/dL (8.4-10.2); Carbon Dioxide 25 mmol/L (22-30); Creatinine 1 0.62 mg/dL (0.52-1.04); EST GLOMERULAR FILTRATION RATE > 60.0 ML/MIN; Glucose 86 mg/dL (74-106); Potassium 3.8 mmol/L (3.5-5.1); SGOT/AST 20 U/L (14-36); SGPT/ALT 7 U/L (0-35); SODIUM 134 mmol/L (137-145); Total Protein 5.9 g/dL (6.3-8.2)
[2021-02-21] MEDS: MOTRIN 400 MG PO PRN ×2 (06:01→10:57)
[2021-02-21 09:18] VITALS: BP 154/92; PULSE 76
--- NOTE | 2021-02-21 10:03 | PCM.DS ---
Discharge Summary Date of Admission: 02/19/21 08:40 Admitting Physician: MUNA LANTIGUA Consults: Consults on Case 02/18/21 20:12 Notify Anesthesia Provider PRN 02/19/21 15:01 Navigation ONCE Primary Care Provider: MUNA LANTIGUA Allergies Allergies codeine [From Tylenol-Codeine] Allergy (Intermediate, Verified 02/15/21 00:39) Vomiting Hospital Summary - Hospital Course Hospital Course: patient delivered at 38 2/7wks via , induced due to history of PIH, prior CVA and was seeing [facility], 9 yr old with congenital heart disease, echo was normal. no complications , mild elevation in bp, will monitor - Vitals & Intake/Output Vital Signs: Vital Signs Temperature 97.5 F 02/21/21 08:00 Pulse Rate 76 02/21/21 08:00 Respiratory Rate 18 02/21/21 08:00 Blood Pressure 154/92 02/21/21 08:00 O2 Sat by Pulse Oximetry 98 02/21/21 02:00 Intake & Output: Intake & Output 02/18/21 02/19/21 02/20/21 02/21/21 11:59 11:59 11:59 11:59 Intake Total 1575 2460 2049 Output Total 450 400 Balance 1125 2059 2049 Weight 112.491 kg - Lab Result Diagrams: 02/21/21 04:57 02/21/21 04:57 Lab Results-Last 24 Hrs: Lab Results-Last 24 Hours 02/18/21 02/20/21 02/21/21 Range/Units 17:50 04:20 04:57 WBC 6.3 (4.0-10.5) K/mm3 RBC 4.01 L (4.1-5.4) M/mm3 Hgb 11.1 L (12.0-16.0) gm/dl Hct 35.8 (35-47) % MCV 89.3 (78-100) fl MCH 27.7 (26-32) pg MCHC 31.0 L (32-36) g/dl RDW 13.7 (11.5-14.0) % Plt Count 143 L (150-450) K/mm3 MPV 12.9 H (7.5-11.0) fl Gran % 61.1 (36.0-66.0) % Eos # (Auto) 0.13 (0-0.5) Absolute Lymphs (auto) 1.85 (1.0-4.6) Absolute Monos (auto) 0.46 (0.0-1.3) Lymphocytes % 29.3 (24.0-44.0) % Monocytes % 7.3 (0.0-12.0) % Eosinophils % 2.1 (0.00-5.0) % Basophils % 0.2 (0.0-0.4) % Absolute Granulocytes 3.87 (1.4-6.9) Basophils # 0.01 (0-0.4) Sodium 134 L (137-145) mmol/L Potassium 4.2 (3.5-5.1) mmol/L Chloride 105 (98-107) mmol/L Carbon Dioxide 22 (22-30) mmol/L Anion Gap 11.3 (5-15) MEQ/L BUN 5 L (7-17) mg/dL Creatinine 0.54 (0.52-1.04) mg/dL Estimated GFR > 60.0 ML/MIN Glucose 92 (74-106) mg/dL Calcium 8.5 (8.4-10.2) mg/dL Total Bilirubin 0.20 (0.2-1.3) mg/dL AST 23 (14-36) U/L ALT 8 (0-35) U/L Alkaline Phosphatase 91 (38-126) U/L Serum Total Protein 5.6 L (6.3-8.2) g/dL Albumin 3.0 L (3.5-5.0) g/dL Hep Bs Antigen Negative (Negative) 02/21/21 Range/Units 04:57 WBC (4.0-10.5) K/mm3 RBC (4.1-5.4) M/mm3 Hgb (12.0-16.0) gm/dl Hct (35-47) % MCV (78-100) fl MCH (26-32) pg MCHC (32-36) g/dl RDW (11.5-14.0) % Plt Count (150-450) K/mm3 MPV (7.5-11.0) fl Gran % (36.0-66.0) % Eos # (Auto) (0-0.5) Absolute Lymphs (auto) (1.0-4.6) Absolute Monos (auto) (0.0-1.3) Lymphocytes % (24.0-44.0) % Monocytes % (0.0-12.0) % Eosinophils % (0.00-5.0) % Basophils % (0.0-0.4) % Absolute Granulocytes (1.4-6.9) Basophils # (0-0.4) Sodium 134 L (137-145) mmol/L Potassium 3.8 (3.5-5.1) mmol/L Chloride 102 (98-107) mmol/L Carbon Dioxide 25 (22-30) mmol/L Anion Gap 9.9 (5-15) MEQ/L BUN 7 (7-17) mg/dL Creatinine 0.62 (0.52-1.04) mg/dL Estimated GFR > 60.0 ML/MIN Glucose 86 (74-106) mg/dL Calcium 8.9 (8.4-10.2) mg/dL Total Bilirubin 0.10 L (0.2-1.3) mg/dL AST 20 (14-36) U/L ALT 7 (0-35) U/L Alkaline Phosphatase 77 (38-126) U/L Serum Total Protein 5.9 L (6.3-8.2) g/dL Albumin 3.0 L (3.5-5.0) g/dL Hep Bs Antigen (Negative) Micro Results-Entire Visit: Microbiology 02/19/21 10:00 Urine Culture - Final Urine, Indwelling Catheter NO GROWTH 02/18/21 17:50 Urine Culture - Final Urine, Void MIXED NGUYEN; 3 OR MORE TYPES. NO PREDOMINANT ORGANISM. NO FURTHER WORKUP. PLEASE RESUBMIT IF CLINICALLY INDICATED. - Procedures and Test Procedures and Tests throughout Hospitalization: Therapy Orders & Screens 02/19/21 12:59 Standby ROUTINE Comment: Diagnosis: INDUCTION OF LABOR Discharge Exam General Appearance: no apparent distress, obese Neurologic Exam: alert, 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 Respiratory Exam: normal breath sounds, lungs clear, No respiratory distress Cardiovascular Exam: regular rate/rhythm, normal heart sounds Gastrointestinal/Abdomen Exam: soft, No tenderness, No mass Extremity Exam: normal inspection, normal range of motion, pedal edema Skin Exam: normal color, warm, dry Final Diagnosis/Problem List - Final Discharge Diagnosis/Problem (1) Vaginal delivery Current Visit: Yes Status: Acute Code(s): O80 - ENCOUNTER FOR FULL-TERM UNCOMPLICATED DELIVERY (2) PIH ( induced hypertension) Current Visit: Yes Status: Acute Code(s): O13.9 - GESTATIONAL HTN W/O SIGNIFICANT PROTEINURIA, UNSP TRIMESTER (3) History of CVA (cerebrovascular accident) Current Visit: Yes Status: Acute Code(s): Z86.73 - PRSNL HX OF TIA (TIA), AND CEREB INFRC W/O RESID DEFICITS - Discharge Disposition: Home, Self-Care Condition: Stable Prescriptions: New Enoxaparin Sodium [Enoxaparin Sodium] 40 mg SQ DAILY #30 syringe Iron Polysaccharides Complex [Ferrex 150] 150 mg PO DAILY #30 capsule Continue Aspirin 162 mg PO DAILY Discontinued Vits W-Ca,Fe,FA(<1Mg) [] 1 each PO DAILY Instructions: Labor Induction, Dinoprostone Follow up with: MUNA LANTIGUA MD [Primary Care Provider] - 1 Week
== END 2021-02-21 11:15 | disposition home or self-care (01) | DRG 807 ==
LOC: OB 08:40 → OBSVTOIN 02-19 08:40
PROVIDERS: ADMIT Family Medicine; ATTEND Family Medicine
PROC: 10E0XZZ Delivery of Products of Conception, External Approach (ICD-10-PCS; principal; 2021-02-19)
DX: O13.4 Gestational [pregnancy-induced] hypertension without significant proteinuria, complicating childbirth (principal); Z37.0 Single live birth; O66.0 Obstructed labor due to shoulder dystocia; Z3A.38 38 weeks gestation of pregnancy; D69.6 Thrombocytopenia, unspecified; Z86.73 Personal history of transient ischemic attack (TIA), and cerebral infarction without residual deficits
CPT/HCPCS: 36415; 80053; 80307; 81001; 85025; 85610; 85730; 87086; 87340; 90471; 90715; 94799; G0378; J1650; J2405; J2590; A9270-GY

== ENCOUNTER 2021-07-19 19:56 | Emergency (ER) | payer OTHER ==
[2021-07-19] MEDS ORDERED: Zofran 4 MG/2 ML VIAL IV ONE (20:24)
[2021-07-19] MEDS ORDERED: Sodium Chloride 0.9% 1000 ML 1,000 ML IV STA (20:24)
[2021-07-19] MEDS ORDERED: MORPHINE SULFATE 4 MG INJ IV ONE (20:26)
[2021-07-19] MEDS ORDERED: MORPHINE SULFATE 4 MG INJ ONE (20:36)
[2021-07-19] MEDS ORDERED: Sodium Chloride 0.9% 1000 ML 1,000 ML ONE (20:36)
[2021-07-19] MEDS ORDERED: Zofran 4 MG/2 ML VIAL ONE (20:36)
[2021-07-19 20:40] LABS: Absolute Neutrophil Ct (ANC) 5.24 (1.4-6.9); BASOPHIL % 0.2 % (0.0-0.4); Basophil (Absolute #) 0.02 (0-0.4); Eosinophil % 1.4 % (0.00-5.0); Eosinophil (Absolute #) 0.11 (0-0.5); Hematocrit 38.7 % (35-47); Hemoglobin 12.9 gm/dl (12.0-16.0); Lymphocyte (Absolute #) 2.08 (1.0-4.6); Mean Cell Volume 86.4 fl (78-100); Mean Corpuscular Hemoglobin 28.8 pg (26-32); Mean Corpuscular Hgb Concent. 33.3 g/dl (32-36); Mean Platelet Volume 11.5 fl (7.5-11.0); Monocyte (Absolute #) 0.56 (0.0-1.3); Neutrophil % 65.4 % (36.0-66.0); Platelet Count 240 K/mm3 (150-450); Red Blood Count 4.48 M/mm3 (4.1-5.4)
[2021-07-19 20:56] LABS: ALBUMIN 3.9 g/dL (3.5-5.0); ALKALINE PHOSPHATASE 61 U/L (38-126); ANION GAP 12.2 MEQ/L (5-15); BLOOD UREA NITROGEN 6 mg/dL (7-17); CHLORIDE 106 mmol/L (98-107); Calcium 9.1 mg/dL (8.4-10.2); Carbon Dioxide 23 mmol/L (22-30); Creatinine 1 0.76 mg/dL (0.52-1.04); EST GLOMERULAR FILTRATION RATE > 60.0 ML/MIN; Glucose 99 mg/dL (74-106); Potassium 3.9 mmol/L (3.5-5.1); SGOT/AST 20 U/L (14-36); SGPT/ALT 11 U/L (0-35); SODIUM 137 mmol/L (137-145); Total Protein 7.1 g/dL (6.3-8.2)
[2021-07-19 21:09] VITALS: PULSE 104
--- NOTE | 2021-07-19 22:28 | ERPHSYRPT ---
- History of Present Illness Time Seen by Provider: 07/19/21 20:37 Source: patient Exam Limitations: no limitations Patient Subjective Stated Complaint: pt states "I have pain in my left hip. I thought it was sciatica pain but the pressure worries me." Triage Nursing Assessment: pt ambulated into the er; pt is slumped over with ambulation; pt c/o left hip pain; pt states 7/10 pain to left hip; pt states that she is 14 weeks ; pt states she took tylenol at 1600; pt states "I thought it was sciatica pain but I have pressure"; pt states "When I get a sharp pain my left leg goes numb and it is painful to walk on."; strong pedal pulse to LLE; good cap refill to LLE; limited ROM to back and LLE due to risk of exacerbation; hypertensive Physician History: 30 years old 4 para 2 at 14 weeks single IUP presented in the ER with chief complaint of left lower back pain since 3 PM today with radiation to the left upper thigh. Does have history of back pain in the past. Pain is moderate intensity sharp nature, more with activity and better with resting. Having difficulty standing straight. No numbness tingling or weakness of lower extremities. Denies any pelvic/abdominal cramping, vaginal bleeding or discharge. No urinary symptoms. No nausea or vomiting reported. Did take Tylenol with partial relief of pain. Timing/Duration: today, constant, sudden, worse Severity: moderate Modifying Factors: Worsens With: nothing Associated Symptoms: denies symptoms Allergies/Adverse Reactions: codeine [From Tylenol-Codeine] Allergy (Intermediate, Verified 07/19/21 20:01) Vomiting Home Medications: Aspirin 81 mg PO BID 11/22/20 [History] Enoxaparin Sodium [Enoxaparin Sodium] 30 mg SQ DAILY 07/19/21 [History] Vits W-Ca,Fe,FA(<1Mg) [] 1 tab PO DAILY 07/19/21 [History] Hx Tetanus, Diphtheria Vaccination/Date Given: Yes Hx Influenza Vaccination/Date Given: No Hx Pneumococcal Vaccination/Date Given: No Travel Risk - International Travel Have you traveled outside of the country in past 3 weeks: No - Coronavirus Screening Are you exhibiting any of the following symptoms?: No Close contact with a COVID-19 positive Pt in past 14-21 Days: No - Vaccine Status Have you recieved a Covid-19 vaccination: No - Review of Systems Constitutional: No Symptoms Eyes: No Symptoms Ears, Nose, & Throat: No Symptoms Respiratory: No Symptoms Cardiac: No Symptoms Abdominal/Gastrointestinal: No Symptoms Genitourinary Symptoms: No Symptoms Musculoskeletal: Back Pain Skin: No Symptoms Neurological: No Symptoms Psychological: No Symptoms Endocrine: No Symptoms Hematologic/Lymphatic: No Symptoms Immunological/Allergic: No Symptoms - Past Medical History Pertinent Past Medical History: Yes Neurological History: Migraines, Stroke ENT History: No Pertinent History Cardiac History: No Pertinent History Respiratory History: Asthma Endocrine Medical History: No Pertinent History Musculoskeletal History: No Pertinent History GI Medical History: Gallbladder Disease History: No Pertinent History Psycho-Social History: Depression Female Reproductive Disorders: Other Other Medical History: CVA 2017, R sided weakness. Miscarriage 2017 - Past Surgical History Past Surgical History: Yes Neuro Surgical History: No Pertinent History Cardiac: No Pertinent History Respiratory: No Pertinent History Gastrointestinal: No Pertinent History Genitourinary: No Pertinent History Musculoskeletal: No Pertinent History Female Surgical History: No Pertinent History, Dilation & Curettage Other Surgical History: TONSILLECTOMY - Social History Smoking Status: Former smoker How long have you smoked: 1 Exposure to second hand smoke: No Alcohol Use: Socially Drug Use: none Patient Lives Alone: No Significant Family History: heart disease, cancer, hypertension - Female History Hx Now: Yes (14 weeks) - Nursing Vital Signs Nursing Vital Signs: Initial Vital Signs Temperature 98.1 F 07/19/21 20:03 Pulse Rate 112 H 07/19/21 20:03 Respiratory Rate 18 07/19/21 20:03 Blood Pressure 142/95 07/19/21 20:03 O2 Sat by Pulse Oximetry 99 07/19/21 20:03 Pain Scale Pain Intensity [Left Hip] 7 Pain Intensity 2 - Physical Exam General Appearance: no apparent distress, alert Eye Exam: eyes nml inspection Neck Exam: normal inspection, non-tender, supple, full range of motion Respiratory Exam: normal breath sounds, lungs clear Cardiovascular Exam: normal heart sounds, tachycardia Gastrointestinal/Abdomen Exam: soft, normal bowel sounds, No tenderness Back Exam: normal inspection, decreased range of motion, muscle spasm, point tenderness (Left sacroiliac area. Straight leg raising test positive on the left with 30 degrees elevation. Intact distal neurovascular. Knee reflexes bilateral 2+.), No CVA tenderness Extremity Exam: normal inspection, normal range of motion, pelvis stable Neurologic Exam: alert, 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, cooperative Skin Exam: normal color SpO2 Interpretation: normal SpO2: 97 O2 Delivery: Room Air Ordered Tests: Active Orders 24 hr Category Date Time Status OB LIMITED [US] Stat Exams 07/19/21 21:54 Taken CBC W DIFF Stat Lab 07/19/21 20:35 Completed CMP Stat Lab 07/19/21 20:35 Completed UA W/RFX UR CULTURE Stat Lab 07/19/21 22:30 Completed Medication Summary Discontinued Medications Generic Name Dose Route Start Last Admin Trade Name Freq PRN Reason Stop Dose Admin Sodium Chloride 1,000 mls @ 999 mls/hr 07/19/21 20:24 07/19/21 22:32 Sodium Chloride 0.9% 1000 Ml IV 07/19/21 21:24 Infused .Q1H1M STA Infusion Sodium Chloride Confirm 07/19/21 20:36 Sodium Chloride 0.9% 1000 Ml Administered 07/19/21 20:37 Dose 1,000 mls @ ud .ROUTE .STK-MED ONE Morphine Sulfate 4 mg 07/19/21 20:26 07/19/21 20:38 Morphine Sulfate 4 Mg/Ml Injection IV 07/19/21 20:27 4 mg STAT ONE Administration Morphine Sulfate Confirm 07/19/21 20:36 Morphine Sulfate 4 Mg/Ml Injection Administered 07/19/21 20:37 Dose 4 mg .ROUTE .STK-MED ONE Ondansetron HCl 4 mg 07/19/21 20:24 07/19/21 20:37 Ondansetron Hcl 4 Mg/2 Ml Vial IV 07/19/21 20:25 4 mg STAT ONE Administration Ondansetron HCl Confirm 07/19/21 20:36 Ondansetron Hcl 4 Mg/2 Ml Vial Administered 07/19/21 20:37 Dose 4 mg .ROUTE .STK-MED ONE Lab/Rad Data: Laboratory Result Diagrams 07/19/21 20:35 07/19/21 20:35 Laboratory Results 07/19/21 07/19/21 07/19/21 Range/Units 22:30 20:35 20:35 WBC 8.0 (4.0-10.5) K/mm3 RBC 4.48 (4.1-5.4) M/mm3 Hgb 12.9 (12.0-16.0) gm/dl Hct 38.7 (35-47) % MCV 86.4 (78-100) fl MCH 28.8 (26-32) pg MCHC 33.3 (32-36) g/dl RDW 14.0 (11.5-14.0) % Plt Count 240 (150-450) K/mm3 MPV 11.5 H (7.5-11.0) fl Gran % 65.4 (36.0-66.0) % Eos # (Auto) 0.11 (0-0.5) Absolute Lymphs (auto) 2.08 (1.0-4.6) Absolute Monos (auto) 0.56 (0.0-1.3) Lymphocytes % 26.0 (24.0-44.0) % Monocytes % 7.0 (0.0-12.0) % Eosinophils % 1.4 (0.00-5.0) % Basophils % 0.2 (0.0-0.4) % Absolute Granulocytes 5.24 (1.4-6.9) Basophils # 0.02 (0-0.4) Sodium 137 (137-145) mmol/L Potassium 3.9 (3.5-5.1) mmol/L Chloride 106 (98-107) mmol/L Carbon Dioxide 23 (22-30) mmol/L Anion Gap 12.2 (5-15) MEQ/L BUN 6 L (7-17) mg/dL Creatinine 0.76 (0.52-1.04) mg/dL Estimated GFR > 60.0 ML/MIN Glucose 99 (74-106) mg/dL Calcium 9.1 (8.4-10.2) mg/dL Total Bilirubin 0.30 (0.2-1.3) mg/dL AST 20 (14-36) U/L ALT 11 (0-35) U/L Alkaline Phosphatase 61 (38-126) U/L Serum Total Protein 7.1 (6.3-8.2) g/dL Albumin 3.9 (3.5-5.0) g/dL Urine Color YELLOW (YELLOW) Urine Appearance SLIGHTLY CLOUDY (CLEAR) Urine pH 6.0 (5-6) Ur Specific [place] 1.021 (1.005-1.025) Urine Protein NEGATIVE (Negative) Urine Ketones NEGATIVE (NEGATIVE) Urine Blood NEGATIVE (0-5) Kermit/ul Urine Nitrite NEGATIVE (NEGATIVE) Urine Bilirubin NEGATIVE (NEGATIVE) Urine Urobilinogen NEGATIVE (0-1) mg/dL Ur Leukocyte Esterase NEGATIVE (NEGATIVE) Urine WBC (Auto) NONE (0-5) /HPF Urine RBC (Auto) NONE (0-2) /HPF U Epithel Cells (Auto) RARE (FEW) /HPF Urine Bacteria (Auto) NONE (NEGATIVE) /HPF Urine Culture Reflexed NO (NO) Urine Glucose NEGATIVE (NEGATIVE) mg/dL - Progress Progress: improved Progress Note: 07/19/21 23:07 She is given fluid bolus and after informed consent with risk and benefits of morphine given, feeling much better on reevaluation. No abdominal tenderness. Baseline lab work grossly unremarkable. No UTI. Obtain ultrasound which shows single IUP with good heart tones in 160s and some area of hypoechoic AC which could be placental alfredo/infarction. She is counseled, pelvic rest, hydration, Tylenol and outpatient OB follow-up in 1 to 2 days. Discuss signs symptoms of worsening needing return to ER which she seems understanding. Counseled pt/family regarding: lab results, diagnosis, need for follow-up, rad results - Departure Departure Disposition: Home Clinical Impression: Low back strain Qualifiers: Encounter type: initial encounter Qualified Code(s): S39.012A - Strain of muscle, fascia and tendon of lower back, initial encounter Qualifiers: Weeks of gestation: 14 weeks Qualified Code(s): Z3A.14 - 14 weeks gestation of Condition: Stable Critical Care Time: No Referrals: MUNA LANTIGUA MD [Primary Care Provider] - (tomorrow for re evaluation) Instructions: Low Back Pain (DC), Round Ligament Pain Additional Instructions: Take Tylenol as needed for pain. Follow-up with your primary care/primary OB for reevaluation tomorrow. Keep yourself well-hydrated . Have pelvic rest. Return to ER for worsening back pain or if develop cramping/vaginal bleeding discharge etc.
[2021-07-19 22:39] LABS: Appearance SLIGHTLY CLOUDY (CLEAR); Bilirubin NEGATIVE (NEGATIVE); Blood NEGATIVE Ery/ul (0-5); Epithelial Cells RARE /HPF (FEW); Glucose NEGATIVE (NEGATIVE); Ketones NEGATIVE (NEGATIVE); Leukocyte Esterase NEGATIVE (NEGATIVE); Nitrite NEGATIVE (NEGATIVE); Protein,Urine Dip NEGATIVE (Negative); Specific Gravity 1.021 (1.005-1.025); Urobilinogen NEGATIVE mg/dL (0-1)
[2021-07-19 23:12] VITALS: O2SAT 97
[2021-07-19 23:13] VITALS: BP 115/66
--- NOTE | 2021-07-20 08:46 | XRAY ---
Indication: Low back pain. Placenta abruption. History of blood clotting disorder. Limited 2-dimensional OB ultrasound performed. Comparison: July 04, 2021. Again single viable intrauterine with heart rate 165 BPM. Developing anterior placenta with a 1.2 x 1.3 x 1.2 cm focal heterogeneous hypoechogenicity without color perfusion, possible placenta venous alfredo versus placental infarct. No abnormal retroplacental fluid. Cervix closed measuring 4.1 cm in length. Comment: Preliminary interpretation was made by [facility]. No critical discrepancy.
== END 2021-07-19 23:24 | disposition home or self-care (01) ==
LOC: ED 19:56
DX: S39.012A Strain of muscle, fascia and tendon of lower back, initial encounter (principal); Z3A.14 14 weeks gestation of pregnancy
CPT/HCPCS: 36000; 36415; 76815; 80053; 81001; 85025; 96360; 96374; 96375; 99284; J2270; J2405

== ENCOUNTER 2021-07-29 19:00 | Emergency (ER) | payer OTHER ==
[2013-05-22 20:17] VITALS: BP 140/80
[2021-07-29] MEDS ORDERED: TYLENOL 325 MG PO ONE (19:30)
[2021-07-29] MEDS ORDERED: TYLENOL 325 MG ONE (19:32)
--- NOTE | 2021-07-29 19:37 | ERPHSYRPT ---
- History of Present Illness Time Seen by Provider: 07/29/21 19:05 Source: patient Exam Limitations: no limitations Patient Subjective Stated Complaint: pt states "I woke up today fine and the pain began again in my lower back and is getting worse." Triage Nursing Assessment: pt ambulated into the er; pt is axo x4; c/o back pain; pt states 8/10 pain to lower back; pt has limp with gait; pt has tenderness to lower lumbar with palpation; pt states pain is dull and then sharp with ambulation; pt states "I pain to the front of my rt leg but I think its because I'm walking funny."; pt denies any recent falls or trauma to back; pt states that she tried taking a hot bath and tylenol with no relief; pt states that she has apt with PCP on 08/13 and ultrasound on 08/21 in [place]; pt states she is 15 almost 16 wks ; tachycardic Physician History: 30 years old female 4 para 2 at almost 16 weeks gestation presented in the ER with chief complaint of left lower back pain started this morning with radiation to left thigh, more with activity and better with resting and Tylenol. Denies any numbness tingling weakness of lower extremity. No pelvic/abdominal cramping, nausea or vomiting. Denies any vaginal bleeding or discharge. Patient was seen in the ER late last month with similar symptoms by me with negative ultrasound done at that time. Timing/Duration: today Severity: moderate Modifying Factors: Improves With: rest, acetaminophen. Worsens With: movement Associated Symptoms: No nausea, No vomiting, No abdominal pain Allergies/Adverse Reactions: codeine [From Tylenol-Codeine] Allergy (Intermediate, Verified 07/29/21 19:10) Vomiting Home Medications: Aspirin 81 mg PO BID 11/22/20 [History] Enoxaparin Sodium [Enoxaparin Sodium] 30 mg SQ DAILY 07/19/21 [History] Vits W-Ca,Fe,FA(<1Mg) [] 1 tab PO DAILY 07/19/21 [History] Hx Tetanus, Diphtheria Vaccination/Date Given: Yes Hx Influenza Vaccination/Date Given: No Hx Pneumococcal Vaccination/Date Given: No Travel Risk - International Travel Have you traveled outside of the country in past 3 weeks: No - Coronavirus Screening Are you exhibiting any of the following symptoms?: No Close contact with a COVID-19 positive Pt in past 14-21 Days: No - Vaccine Status Have you recieved a Covid-19 vaccination: No - Review of Systems Constitutional: No Symptoms Eyes: No Symptoms Ears, Nose, & Throat: No Symptoms Respiratory: No Symptoms Cardiac: No Symptoms Abdominal/Gastrointestinal: No Symptoms Genitourinary Symptoms: No Symptoms Musculoskeletal: Back Pain Skin: No Symptoms Neurological: No Symptoms Psychological: No Symptoms Endocrine: No Symptoms - Past Medical History Pertinent Past Medical History: Yes Neurological History: Migraines, Stroke ENT History: No Pertinent History Cardiac History: No Pertinent History Respiratory History: Asthma Endocrine Medical History: No Pertinent History Musculoskeletal History: No Pertinent History GI Medical History: Gallbladder Disease History: No Pertinent History Psycho-Social History: Depression Female Reproductive Disorders: Other Other Medical History: CVA 2017, R sided weakness. Miscarriage 2017 - Past Surgical History Past Surgical History: Yes Neuro Surgical History: No Pertinent History Cardiac: No Pertinent History Respiratory: No Pertinent History Gastrointestinal: No Pertinent History Genitourinary: No Pertinent History Musculoskeletal: No Pertinent History Female Surgical History: No Pertinent History, Dilation & Curettage Other Surgical History: TONSILLECTOMY, blood transfusions - Social History Smoking Status: Former smoker How long have you smoked: 1 Exposure to second hand smoke: No Alcohol Use: Socially Drug Use: none Patient Lives Alone: No Significant Family History: heart disease, cancer, hypertension - Female History Hx Now: Yes (15 weeks) - Nursing Vital Signs Nursing Vital Signs: Initial Vital Signs Temperature 98.6 F 07/29/21 19:10 Pulse Rate 107 H 07/29/21 19:10 Respiratory Rate 22 07/29/21 19:10 Blood Pressure 138/93 07/29/21 19:10 O2 Sat by Pulse Oximetry 97 07/29/21 19:10 Pain Scale Pain Intensity [Lower Back] 8 Pain Intensity 8 - Physical Exam General Appearance: no apparent distress, alert Eye Exam: PERRL/EOMI Ears, Nose, Throat Exam: normal ENT inspection, pharynx normal Neck Exam: normal inspection, supple, full range of motion Respiratory Exam: normal breath sounds, lungs clear Cardiovascular Exam: regular rate/rhythm, normal heart sounds Gastrointestinal/Abdomen Exam: soft, normal bowel sounds, No tenderness Back Exam: normal inspection, normal range of motion, muscle spasm (Left sacroiliac area. No midline tenderness at all.), No CVA tenderness, No vertebral tenderness Extremity Exam: normal inspection, normal range of motion, pelvis stable Neurologic Exam: alert, 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, cooperative Skin Exam: normal color SpO2 Interpretation: normal SpO2: 97 O2 Delivery: Room Air Ordered Tests: Active Orders 24 hr Category Date Time Status Heart Tones ONCE Care 07/29/21 19:31 Active UA W/RFX UR CULTURE Stat Lab 07/29/21 19:32 Completed Medication Summary Generic Name Dose Route Start Last Admin Trade Name Freq PRN Reason Stop Dose Admin Morphine Sulfate 4 mg 07/29/21 20:26 Morphine Sulfate 4 Mg/Ml Injection IM 07/29/21 20:27 STAT ONE Discontinued Medications Generic Name Dose Route Start Last Admin Trade Name Freq PRN Reason Stop Dose Admin Acetaminophen 650 mg 07/29/21 19:30 07/29/21 19:33 Acetaminophen 325 Mg Tablet PO 07/29/21 19:31 650 mg STAT ONE Administration Acetaminophen Confirm 07/29/21 19:32 Acetaminophen 325 Mg Tablet Administered 07/29/21 19:33 Dose 650 mg .ROUTE .STO4 [employer]-MED ONE Lab/Rad Data: Laboratory Results 07/29/21 Range/Units 19:32 Urine Color YELLOW (YELLOW) Urine Appearance SLIGHTLY CLOUDY (CLEAR) Urine pH 6.0 (5-6) Ur Specific [place] 1.023 (1.005-1.025) Urine Protein NEGATIVE (Negative) Urine Ketones NEGATIVE (NEGATIVE) Urine Blood NEGATIVE (0-5) Kermit/ul Urine Nitrite NEGATIVE (NEGATIVE) Urine Bilirubin NEGATIVE (NEGATIVE) Urine Urobilinogen NEGATIVE (0-1) mg/dL Ur Leukocyte Esterase NEGATIVE (NEGATIVE) Urine WBC (Auto) NONE (0-5) /HPF Urine RBC (Auto) NONE (0-2) /HPF U Epithel Cells (Auto) RARE (FEW) /HPF Urine Bacteria (Auto) NONE (NEGATIVE) /HPF Urine Mucus (Auto) SLIGHT (NEGATIVE) /HPF Urine Culture Reflexed NO (NO) Urine Glucose NEGATIVE (NEGATIVE) mg/dL - Progress Progress: improved, re-examined Progress Note: 07/29/21 She is initially given Tylenol with no significant relief. After informed consent about risk and benefits, given morphine and feeling better. No UTI. heart tones 160s. No cramping, vaginal bleeding or discharge. Do not think needs any ultrasound and her pain is similar to last time when she was in here. Discussed with patient in detail about symptomatic treatment and outpatient follow-up. Discussed signs symptoms of worsening needing return to ER which she seems understanding. Counseled pt/family regarding: lab results, diagnosis, need for follow-up - Departure Departure Disposition: Home Clinical Impression: Back pain Qualifiers: Back pain location: low back pain Chronicity: acute Back pain laterality: right Sciatica presence: unspecified whether sciatica present Qualified Code(s): M54.50 - Low back pain, unspecified Condition: Stable Critical Care Time: No Referrals: MUNA LANTIGUA MD [Primary Care Provider] - Follow up/PCP as directed (1-2 days for reevaluation.) Instructions: Low Back Pain (DC) Additional Instructions: Take Tylenol as needed for pain. Follow-up with your primary care/OB for reevaluation in 1 to 2 days. Return to ER for any worsening pain, numbness tingling weakness or if have any pelvic cramping, vaginal bleeding/discharge etc.
[2021-07-29 19:48] LABS: Appearance SLIGHTLY CLOUDY (CLEAR); Bilirubin NEGATIVE (NEGATIVE); Blood NEGATIVE Ery/ul (0-5); Epithelial Cells RARE /HPF (FEW); Glucose NEGATIVE (NEGATIVE); Ketones NEGATIVE (NEGATIVE); Leukocyte Esterase NEGATIVE (NEGATIVE); Mucus SLIGHT /HPF (NEGATIVE); Nitrite NEGATIVE (NEGATIVE); Protein,Urine Dip NEGATIVE (Negative); Specific Gravity 1.023 (1.005-1.025); Urobilinogen NEGATIVE mg/dL (0-1)
[2021-07-29] MEDS ORDERED: MORPHINE SULFATE 4 MG INJ IM ONE (20:26)
[2021-07-29] MEDS ORDERED: MORPHINE SULFATE 4 MG INJ ONE (20:30)
== END 2021-07-29 21:06 | disposition home or self-care (01) ==
LOC: ED 19:00
DX: M54.50 Low back pain, unspecified (principal)
CPT/HCPCS: 81001; 96372; 99284; J2270; A9270-GY

== ENCOUNTER 2021-09-28 16:47 | Observation (INO) | payer OTHER ==
[2021-09-28 17:33] VITALS: BP 132/73; PULSE 108; O2SAT 97
[2021-09-28 17:43] LABS: Appearance SLIGHTLY CLOUDY (CLEAR); Bacteria RARE /HPF (NEGATIVE); Bilirubin NEGATIVE (NEGATIVE); Blood NEGATIVE Ery/ul (0-5); Epithelial Cells RARE /HPF (FEW); Glucose NEGATIVE (NEGATIVE); Ketones NEGATIVE (NEGATIVE); Leukocyte Esterase NEGATIVE (NEGATIVE); Mucus SLIGHT /HPF (NEGATIVE); Nitrite NEGATIVE (NEGATIVE); Protein,Urine Dip NEGATIVE (Negative); RBC 0-2 /HPF (0-2); Specific Gravity 1.025 (1.005-1.025); Urobilinogen NEGATIVE mg/dL (0-1); WBC 0-2 /HPF (0-5)
== END 2021-09-28 18:15 | disposition home or self-care (01) ==
LOC: OB 16:47
PROVIDERS: ADMIT Family Medicine; ATTEND Family Medicine
DX: Z34.82 Encounter for supervision of other normal pregnancy, second trimester (principal); Z3A.24 24 weeks gestation of pregnancy
CPT/HCPCS: 81001; G0378

== ENCOUNTER 2021-10-20 11:59 | Observation (INO) | payer OTHER ==
[2021-10-20] MEDS ORDERED: Pepcid 20 MG VIAL IV PRN (13:00)
[2021-10-20] MEDS ORDERED: BENADRYL 50 MG/ML IV PRN (13:00)
[2021-10-20] MEDS ORDERED: Zofran 4 MG/2 ML VIAL IV PRN (13:00)
[2021-10-20] MEDS ORDERED: Sodium Chloride 0.9% 1000 ML 1,000 ML IV PRN (13:00)
[2021-10-20] MEDS ORDERED: TYLENOL 325 MG PO PRN (13:00)
[2021-10-20] MEDS ORDERED: SOTROVIMAB (EUA) 500 MG in Sodium Chloride 0.9% 100 ML BAG 100 ML IV ONE (13:00)
[2021-10-20] MEDS ORDERED: solu-CORTEF 100MG IV PRN (13:00)
[2021-10-20] MEDS ORDERED: VENTOLIN COMMON CANISTER IH PRN (13:00)
[2021-10-20] MEDS ORDERED: Epipen 0.3 MG SQ PRN (13:00)
[2021-10-20] MEDS ORDERED: Lactated Ringers 500 ML IV ONE (13:24)
[2021-10-20 14:05] LABS: Hemoglobin 12.5 gm/dl (12.0-16.0); Mean Cell Volume 90.3 fl (78-100); Mean Corpuscular Hemoglobin 29.7 pg (26-32); Mean Corpuscular Hgb Concent. 32.9 g/dl (32-36); Mean Platelet Volume 11.3 fl (7.5-11.0); Platelet Count 242 K/mm3 (150-450); Red Blood Count 4.21 M/mm3 (4.1-5.4); Red Cell Distribution Width 14.7 % (11.5-14.0); White Blood Count 6.4 K/mm3 (4.0-10.5)
[2021-10-20 14:35] LABS: Appearance CLOUDY (CLEAR); Bacteria FEW /HPF (NEGATIVE); Bilirubin NEGATIVE (NEGATIVE); Blood NEGATIVE Ery/ul (0-5); Epithelial Cells MANY /HPF (FEW); Glucose NEGATIVE (NEGATIVE); Ketones NEGATIVE (NEGATIVE); Leukocyte Esterase NEGATIVE (NEGATIVE); Mucus SLIGHT /HPF (NEGATIVE); Nitrite NEGATIVE (NEGATIVE); Protein,Urine Dip 30 (Negative); Specific Gravity 1.028 (1.005-1.025); Urobilinogen 4 mg/dL (0-1); WBC 0-2 /HPF (0-5)
[2021-10-20 14:49] VITALS: PULSE 132; O2SAT 100
[2021-10-20 14:54] LABS: ALBUMIN 3.7 g/dL (3.5-5.0); ALKALINE PHOSPHATASE 77 U/L (38-126); ANION GAP 14.6 MEQ/L (5-15); BLOOD UREA NITROGEN 7 mg/dL (7-17); CHLORIDE 105 mmol/L (98-107); Calcium 8.7 mg/dL (8.4-10.2); Carbon Dioxide 20 mmol/L (22-30); Creatinine 1 0.42 mg/dL (0.52-1.04); EST GLOMERULAR FILTRATION RATE > 60.0 ML/MIN; Glucose 95 mg/dL (74-106); Potassium 4.4 mmol/L (3.5-5.1); SGOT/AST 16 U/L (14-36); SGPT/ALT 7 U/L (0-35); SODIUM 135 mmol/L (137-145); Total Protein 7.6 g/dL (6.3-8.2)
== END 2021-10-20 17:20 | disposition home or self-care (01) ==
LOC: MED SURG 12:30 → UNDOADMOB 12:30 → MED SURG 13:20 → UNDODISOB 17:20
PROVIDERS: ADMIT Family Medicine; ATTEND Family Medicine
DX: O98.512 Other viral diseases complicating pregnancy, second trimester (principal); Z3A.27 27 weeks gestation of pregnancy
CPT/HCPCS: 36415; 59025; 80053; 81001; 84443; 85027; 93005; G0378; M0247; Q0247

== ENCOUNTER 2021-12-26 07:39 | Inpatient (IN) | payer OTHER ==
[2021-12-26 16:10] LABS: Amphetamine,Urine NEGATIVE (NEGATIVE); Barbiturate,Urine NEGATIVE (NEGATIVE); Benzodiazepine,Urine NEGATIVE (NEGATIVE); Cocaine,Urine NEGATIVE (NEGATIVE); Methadone,Urine NEGATIVE (NEGATIVE); Opiate,Urine NEGATIVE (NEGATIVE); PCP,Urine NEGATIVE (NEGATIVE); THC,Urine NEGATIVE (NEGATIVE)
[2021-12-26] MEDS: Lactated Ringers 1,000 ML IV ONE ×2 (20:20→23:20)
[2021-12-26] MEDS ORDERED: Lactated Ringers 1,000 ML IV ONE ×2 (20:30→23:14)
[2021-12-26 21:08] LABS: INR 0.96 (0.8-3.0); PROTIME 11.3 SECONDS (9.4-12.5)
[2021-12-26 21:10] LABS: PTT 24.1 SECONDS (25.1-36.5)
[2021-12-26 21:42] LABS: INFLUENZA A NEGATIVE (NEGATIVE); INFLUENZA B NEGATIVE (NEGATIVE); RESPIRATORY SYNCTIAL VIRUS NEGATIVE (Negative); SARS-CoV-2 Xpert Express NEGATIVE (NEGATIVE)
[2021-12-26] MEDS ORDERED: XYLOCAINE 1% HCL 20 ML MDV IJ PRN (23:16)
[2021-12-26] MEDS ORDERED: Zofran 4 MG/2 ML VIAL IV PRN (23:16)
[2021-12-26] MEDS ORDERED: Ephedrine Sulfate 50 MG/ML IV PRN (23:19)
[2021-12-26] MEDS ORDERED: FENTANYL 2 MCG-BUPIV 0.125%-NS 250 ML Epidur 250 ML EPIDURAL SCH (23:30)
[2021-12-26] MEDS ORDERED: Lactated Ringers 1,000 ML IV SCH (23:30)
[2021-12-26] MEDS ORDERED: PITOCIN 30 UNITS/ LR 500 ML 30 UNITS/500 ML PLAST..BAG IV SCH (23:30)
[2021-12-26 23:59] LABS: ABO TYPING A; Antibody Screen NEGATIVE (NEGATIVE); RH TYPING POSITIVE
[2021-12-27 00:07] LABS: Basophil (Absolute #) 0.01 (0-0.4); Eosinophil % 0.7 % (0.00-5.0); Eosinophil (Absolute #) 0.04 (0-0.5); Hematocrit 35.8 % (35-47); Hemoglobin 11.4 gm/dl (12.0-16.0); Lymphocyte (Absolute #) 0.85 (1.0-4.6); Lymphocytes % 14.6 % (24.0-44.0); Mean Cell Volume 86.3 fl (78-100); Mean Corpuscular Hemoglobin 27.5 pg (26-32); Mean Corpuscular Hgb Concent. 31.8 g/dl (32-36); Mean Platelet Volume 13.1 fl (7.5-11.0); Monocyte (Absolute #) 0.42 (0.0-1.3); Monocytes % 7.2 % (0.0-12.0); Neutrophil % 77.3 % (36.0-66.0); Platelet Count 183 K/mm3 (150-450); Red Blood Count 4.15 M/mm3 (4.1-5.4); Red Cell Distribution Width 14.3 % (11.5-14.0); White Blood Count 5.8 K/mm3 (4.0-10.5)
[2021-12-27] MEDS ORDERED: XYLOCAINE 2%/Epi 1:200000 20ML VIAL MPF ONE (01:03)
[2021-12-27] MEDS ORDERED: MOTRIN 400 MG ONE (06:50)
[2021-12-27] MEDS: TYLENOL EXTRA STRENGTH 500 MG PO PRN ×2 (11:06→21:18)
[2021-12-27] MEDS ORDERED: TUCKS TP PRN (12:42)
[2021-12-27] MEDS ORDERED: Dermoplast Spray TP PRN (12:42)
[2021-12-27] MEDS ORDERED: Adacel Vial IM ONE (16:00)
[2021-12-27] MEDS: MOTRIN 400 MG PO PRN (19:02)
[2021-12-27] MEDS: Colace 100 MG PO SCH (21:18)
[2021-12-28 04:52] LABS: Absolute Neutrophil Ct (ANC) 3.46 (1.4-6.9); Basophil (Absolute #) 0.02 (0-0.4); Eosinophil % 1.5 % (0.00-5.0); Eosinophil (Absolute #) 0.09 (0-0.5); Lymphocyte (Absolute #) 1.79 (1.0-4.6); Lymphocytes % 30.5 % (24.0-44.0); Mean Cell Volume 86.3 fl (78-100); Mean Corpuscular Hgb Concent. 31.3 g/dl (32-36); Mean Platelet Volume 12.5 fl (7.5-11.0); Monocyte (Absolute #) 0.51 (0.0-1.3); Monocytes % 8.7 % (0.0-12.0); Platelet Count 166 K/mm3 (150-450); Red Blood Count 3.71 M/mm3 (4.1-5.4); Red Cell Distribution Width 14.3 % (11.5-14.0); White Blood Count 5.9 K/mm3 (4.0-10.5)
[2021-12-28] MEDS: TYLENOL EXTRA STRENGTH 500 MG PO PRN ×3 (08:43→21:59)
[2021-12-28] MEDS: ENOXAPARIN SODIUM SQ SCH (08:43)
[2021-12-28] MEDS: FERREX 150 PO SCH (09:47)
[2021-12-28] MEDS: Colace 100 MG PO SCH ×2 (09:47→21:59)
[2021-12-28 10:45] LABS: HBsAg Screen Negative (Negative)
[2021-12-28 14:52] VITALS: O2SAT 99
[2021-12-28] MEDS: MOTRIN 400 MG PO PRN (17:19)
[2021-12-29] MEDS ORDERED: NORCO 5/325 MG PO PRN (04:11)
[2021-12-29] MEDS: FERREX 150 PO SCH (09:41)
[2021-12-29] MEDS: Colace 100 MG PO SCH (09:42)
[2021-12-29] MEDS: ENOXAPARIN SODIUM SQ SCH (09:42)
--- NOTE | 2021-12-29 10:44 | PCM.DS ---
Discharge Summary Date of Admission: 12/27/21 07:39 Admitting Physician: MUNA LANTIGUA Consults: Consults on Case 12/26/21 23:19 Notify Anesthesia Provider PRN 12/27/21 13:59 Navigation ONCE Primary Care Provider: MUNA LANTIGUA Allergies Allergies codeine [From Tylenol-Codeine] Allergy (Intermediate, Verified 10/20/21 14:37) Vomiting Hospital Summary - Hospital Course Hospital Course: patient arrived in spontaneous labor at 37 wks, had . bottle feeding well and has no problems or concerns. - Vitals & Intake/Output Vital Signs: Vital Signs Temperature 97.6 F 12/29/21 02:00 Pulse Rate 80 12/29/21 02:00 Respiratory Rate 18 12/29/21 02:00 Blood Pressure 140/83 12/29/21 02:00 O2 Sat by Pulse Oximetry 99 12/28/21 14:00 Intake & Output: Intake & Output 12/26/21 12/27/21 12/28/21 12/29/21 11:59 11:59 11:59 11:59 Intake Total 1850 480 Output Total 1400 Balance 450 480 Weight 106.594 kg - Lab Result Diagrams: 12/28/21 04:34 Lab Results-Last 24 Hrs: Lab Results-Last 24 Hours 12/26/21 Range/Units 20:38 Hep Bs Antigen Negative (Negative) Micro Results-Entire Visit: Microbiology 12/27/21 02:00 Urine Culture - Final Urine, Indwelling Catheter NO GROWTH Discharge Exam General Appearance: no apparent distress, alert Respiratory Exam: normal breath sounds, lungs clear, No respiratory distress Cardiovascular Exam: regular rate/rhythm, normal heart sounds Gastrointestinal/Abdomen Exam: soft, No tenderness, No mass Extremity Exam: normal inspection, normal range of motion Skin Exam: normal color, warm, dry Final Diagnosis/Problem List - Final Discharge Diagnosis/Problem (1) Normal vaginal delivery Current Visit: Yes Status: Acute Code(s): O80 - ENCOUNTER FOR FULL-TERM UNCOMPLICATED DELIVERY (2) History of CVA (cerebrovascular accident) Current Visit: No Status: Acute Assessment & Plan: resume home lovenox at 40mg daily x 6 weeks Code(s): Z86.73 - PRSNL HX OF TIA (TIA), AND CEREB INFRC W/O RESID DEFICITS - Discharge Disposition: Home, Self-Care Condition: Stable Prescriptions: New Enoxaparin Sodium [Enoxaparin Sodium] 40 mg SQ DAILY #30 Hydrocodone/Acetaminophen [Hydrocodone-Acetamin 5-325 mg] 1 tab PO Q6HPRN PRN #20 tablet MDD 4 PRN Reason: Pain Continue Vits W-Ca,Fe,FA(<1Mg) [] 1 tab PO DAILY Discontinued Aspirin 81 mg PO BID Heparin 5000 Units/0.5 ml [Heparin 5000 UNITS/0.5 ML (HIGH RISK MED)] 10,000 unit SQ BID Follow up with: MUNA LANTIGUA MD [Primary Care Provider] - 6 weeks
[2021-12-29] MEDS: MOTRIN 400 MG PO PRN (14:20)
[2021-12-29 19:05] VITALS: BP 134/81; PULSE 89
== END 2021-12-29 16:45 | disposition home or self-care (01) | DRG 807 ==
LOC: OB 07:39 → OBSVTOIN 12-27 07:39
PROVIDERS: ADMIT Family Medicine; ATTEND Family Medicine
PROC: 10E0XZZ Delivery of Products of Conception, External Approach (ICD-10-PCS; principal; 2021-12-27)
DX: O80 Encounter for full-term uncomplicated delivery (principal); Z37.0 Single live birth; Z3A.37 37 weeks gestation of pregnancy; Z20.828 Contact with and (suspected) exposure to other viral communicable diseases; Z86.73 Personal history of transient ischemic attack (TIA), and cerebral infarction without residual deficits
CPT/HCPCS: 0241U; 36415; 80307; 85025; 85610; 85730; 86850; 86900; 86901; 87086; 87340; 90715; G0378; J1650; J2590; A9270-GY

== ENCOUNTER 2022-01-02 21:23 | Emergency (ER) | payer OTHER ==
--- NOTE | 2022-01-02 21:27 | ERPHSYRPT ---
- History of Present Illness Time Seen by Provider: 01/02/22 21:27 Source: patient Exam Limitations: no limitations Physician History: This is a 31-year-old white female patient of Dr. Lantigua who is post normal spontaneous vaginal delivery on 12/27/2021. Patient is on Lovenox. Patient has a history of CVA in the past (2017). Patient is not on any blood pressure medicin e. She is not breast-feeding. She has no chest pain. She has no shortness of breath. She has no abdominal pain. At 8 PM this evening she had a headache, blurred vision and some loss in peripheral vision in her right eye. She has, after her CVA in 2017, persistent/chronic right blind spot. Patient states that the loss of peripheral vision and blurred vision in the right eye has now resolved completely. Patient states that her normal blood pressure is systolic blood pressure in the 140s and diastolic blood pressure in the 60s Timing/Duration: today Associated Symptoms: denies symptoms, No nausea, No vomiting, No shortness of breath, No chest pain Allergies/Adverse Reactions: codeine [From Tylenol-Codeine] Adverse Reaction (Intermediate, Verified 01/02/22 21:49) Vomiting Hx Tetanus, Diphtheria Vaccination/Date Given: Yes Hx Influenza Vaccination/Date Given: No Hx Pneumococcal Vaccination/Date Given: No Travel Risk - International Travel Have you traveled outside of the country in past 3 weeks: No - Coronavirus Screening Are you exhibiting any of the following symptoms?: No Close contact with a COVID-19 positive Pt in past 14-21 Days: No - Vaccine Status Have you recieved a Covid-19 vaccination: No - Review of Systems Constitutional: No Symptoms Eyes: Vision Changes (Right eye) Ears, Nose, & Throat: No Symptoms Respiratory: No Symptoms Cardiac: No Symptoms Abdominal/Gastrointestinal: No Symptoms Genitourinary Symptoms: No Symptoms Musculoskeletal: No Symptoms Skin: No Symptoms Neurological: Headache Psychological: No Symptoms Endocrine: No Symptoms Hematologic/Lymphatic: No Symptoms Immunological/Allergic: No Symptoms All Other Systems: Reviewed and Negative - Past Medical History Pertinent Past Medical History: Yes Neurological History: Migraines, Stroke ENT History: No Pertinent History Cardiac History: No Pertinent History Respiratory History: Asthma Endocrine Medical History: No Pertinent History Musculoskeletal History: No Pertinent History GI Medical History: Gallbladder Disease History: No Pertinent History Psycho-Social History: Depression Female Reproductive Disorders: Other Other Medical History: CVA 2017, R sided weakness. Miscarriage 2017 - Past Surgical History Past Surgical History: Yes Neuro Surgical History: No Pertinent History Cardiac: No Pertinent History Respiratory: No Pertinent History Gastrointestinal: No Pertinent History Genitourinary: No Pertinent History Musculoskeletal: No Pertinent History Female Surgical History: No Pertinent History, Dilation & Curettage Other Surgical History: TONSILLECTOMY - Social History Smoking Status: Former smoker How long have you smoked: 1 Exposure to second hand smoke: No Alcohol Use: Socially Drug Use: none Patient Lives Alone: No Significant Family History: heart disease, cancer, hypertension - Nursing Vital Signs Nursing Vital Signs: Initial Vital Signs Temperature 98.6 F 01/02/22 21:34 Pulse Rate 87 01/02/22 21:34 Respiratory Rate 16 01/02/22 21:34 Blood Pressure 140/98 01/02/22 21:34 O2 Sat by Pulse Oximetry 98 01/02/22 21:34 Pain Scale Pain Intensity 2 - Physical Exam General Appearance: no apparent distress, alert, anxiety Eye Exam: PERRL/EOMI, eyes nml inspection Ears, Nose, Throat Exam: normal ENT inspection, moist mucous membranes Neck Exam: normal inspection, non-tender, supple, full range of motion Respiratory Exam: normal breath sounds, lungs clear, airway intact, No chest tenderness, No respiratory distress Cardiovascular Exam: regular rate/rhythm, normal heart sounds, normal peripheral pulses Gastrointestinal/Abdomen Exam: soft, normal bowel sounds, No tenderness Pelvic Exam: not done Rectal Exam: not done Back Exam: normal inspection, normal range of motion, No CVA tenderness, No vertebral tenderness Extremity Exam: normal inspection, normal range of motion, pelvis stable Neurologic Exam: alert, 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, cooperative, 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 as tested, normal mood/affect, nml station & gait, sensation nml Skin Exam: normal color, warm, dry Lymphatic Exam: No adenopathy SpO2 Interpretation: normal O2 Delivery: Room Air - Course Nursing assessment & vital signs reviewed: Yes Ordered Tests: Active Orders 24 hr Category Date Time Status Tax Auditor STAT Care 01/02/22 21:40 Active IV Insertion STAT Care 01/02/22 21:38 Active NPO (ED) STAT Care 01/02/22 21:39 Active HEAD WITHOUT CONTRAST [CT] Stat Exams 01/02/22 21:39 Taken CBC W DIFF Stat Lab 01/02/22 22:00 Completed CMP Stat Lab 01/02/22 22:30 Completed CULTURE,URINE Stat Lab 01/02/22 22:45 Received Medication Summary Discontinued Medications Generic Name Dose Route Start Last Admin Trade Name Berny PRN Reason Stop Dose Admin Morphine Sulfate 2 mg 01/02/22 22:35 01/02/22 22:42 Morphine Sulfate 2 Mg/Ml Inj IV 01/02/22 22:36 2 mg STAT ONE Administration Morphine Sulfate Confirm 01/02/22 22:42 Morphine Sulfate 2 Mg/Ml Inj Administered 01/02/22 22:43 Dose 2 mg .ROUTE .STK-MED ONE Ondansetron HCl 4 mg 01/02/22 22:35 01/02/22 22:43 Ondansetron Hcl 4 Mg/2 Ml Vial IV 01/02/22 22:36 4 mg STAT ONE Administration Ondansetron HCl Confirm 01/02/22 22:42 Ondansetron Hcl 4 Mg/2 Ml Vial Administered 01/02/22 22:43 Dose 4 mg .ROUTE .STK-MED ONE Lab/Rad Data: Laboratory Result Diagrams 01/02/22 22:00 01/02/22 22:30 Laboratory Results 01/02/22 01/02/22 01/02/22 Range/Units 22:45 22:30 22:00 WBC 7.3 (4.0-10.5) K/mm3 RBC 4.31 (4.1-5.4) M/mm3 Hgb 11.6 L (12.0-16.0) gm/dl Hct 37.0 (35-47) % MCV 85.8 (78-100) fl MCH 26.9 (26-32) pg MCHC 31.4 L (32-36) g/dl RDW 14.2 H (11.5-14.0) % Plt Count 249 (150-450) K/mm3 MPV 11.5 H (7.5-11.0) fl Gran % 68.3 H (36.0-66.0) % Eos # (Auto) 0.24 (0-0.5) Absolute Lymphs (auto) 1.53 (1.0-4.6) Absolute Monos (auto) 0.52 (0.0-1.3) Lymphocytes % 21.0 L (24.0-44.0) % Monocytes % 7.1 (0.0-12.0) % Eosinophils % 3.3 (0.00-5.0) % Basophils % 0.3 (0.0-0.4) % Absolute Granulocytes 4.99 (1.4-6.9) Basophils # 0.02 (0-0.4) Sodium 137 (137-145) mmol/L Potassium 3.8 (3.5-5.1) mmol/L Chloride 102 (98-107) mmol/L Carbon Dioxide 25 (22-30) mmol/L Anion Gap 14.2 (5-15) MEQ/L BUN 8 (7-17) mg/dL Creatinine 0.55 (0.52-1.04) mg/dL Estimated GFR > 60.0 ML/MIN Glucose 86 (74-106) mg/dL Calcium 8.6 (8.4-10.2) mg/dL Total Bilirubin 0.40 (0.2-1.3) mg/dL AST 23 (14-36) U/L ALT 18 (0-35) U/L Alkaline Phosphatase 83 (38-126) U/L Serum Total Protein 7.0 (6.3-8.2) g/dL Albumin 3.6 (3.5-5.0) g/dL Urinalys Dipstick Clnc MAIN LAB Urine Color PINK (YELLOW) Urine Appearance SLIGHTLY CLOUDY (CLEAR) Urine pH 7.0 (5-6) Ur Specific [place] 1.015 (1.005-1.025) POC Urine Protein Conf 30 (Negative) Urine Ketones NEGATIVE (NEGATIVE) Urine Nitrite NEGATIVE (NEGATIVE) Urine Bilirubin NEGATIVE (NEGATIVE) Urine Urobilinogen 0.2 (0-1) mg/dL Urine Leukocytes LARGE (NEGATIVE) Urine WBC (Auto) >100 (0-5) /HPF Urine RBC (Auto) 51-100 (0-2) /HPF U Epithel Cells (Auto) RARE (FEW) /HPF Urine Bacteria (Auto) FEW (NEGATIVE) /HPF Urine RBC LARGE (0-5) Kermit/ul Ur Culture Indicated? YES Urine Glucose NEGATIVE (NEGATIVE) mg/dL - Progress Progress: improved, pain not gone completely Progress Note: 01/02/22 22:34 CAT scan of the head without contrast compared to 01/21/2019 is stable, small old left occipital infarct. Mild. Nasal sinus disease. This disease is less than before. No new acute findings. 01/02/22 22:38 Medical decision making: This patient's symptoms have resolved relative to the blurred vision and the peripheral visual loss. She still has a mild headache. Her systolic blood pressure at this time is 130s. We will provide her with intravenous morphine and intravenous Zofran. I spoke with Dr. Lantigua who is the patient's primary care provider. I reviewed the patient's symptoms, vital signs on arrival and current vital signs. I also reviewed the CAT scan of the head findings with him. We are awaiting the urinalysis. If the patient has a urinary tract infection we will treat that. Dr. Lantigua feels the patient can be discharged to home as March. She is to follow-up in his office. Discussed with : Rell Counseled pt/family regarding: lab results, diagnosis, need for follow-up, rad results - Departure Departure Disposition: Home Clinical Impression: Hypertension, Headache, Visual changes, UTI (urinary tract infection) Condition: Stable Critical Care Time: No Referrals: MUNA LANTIGUA MD [Primary Care Provider] - Follow up/PCP as directed Additional Instructions: Continue medication as prescribed. Follow-up with Dr. Lantigua in his office [facility]. Call to obtain an appointment date for further evaluation management. Prescriptions: Cephalexin Mh 500 mg [Keflex 500 mg] 500 mg PO TID #21 cap
[2022-01-02 22:09] LABS: Absolute Neutrophil Ct (ANC) 4.99 (1.4-6.9); Basophil (Absolute #) 0.02 (0-0.4); Eosinophil % 3.3 % (0.00-5.0); Eosinophil (Absolute #) 0.24 (0-0.5); Hemoglobin 11.6 gm/dl (12.0-16.0); Lymphocyte (Absolute #) 1.53 (1.0-4.6); Mean Cell Volume 85.8 fl (78-100); Mean Corpuscular Hemoglobin 26.9 pg (26-32); Mean Corpuscular Hgb Concent. 31.4 g/dl (32-36); Mean Platelet Volume 11.5 fl (7.5-11.0); Monocyte (Absolute #) 0.52 (0.0-1.3); Monocytes % 7.1 % (0.0-12.0); Neutrophil % 68.3 % (36.0-66.0); Platelet Count 249 K/mm3 (150-450); Red Blood Count 4.31 M/mm3 (4.1-5.4); Red Cell Distribution Width 14.2 % (11.5-14.0); White Blood Count 7.3 K/mm3 (4.0-10.5)
[2022-01-02] MEDS ORDERED: MORPHINE SULFATE 2 MG INJ IV ONE (22:35)
[2022-01-02] MEDS ORDERED: Zofran 4 MG/2 ML VIAL IV ONE (22:35)
[2022-01-02] MEDS ORDERED: MORPHINE SULFATE 2 MG INJ ONE (22:42)
[2022-01-02] MEDS ORDERED: Zofran 4 MG/2 ML VIAL ONE (22:42)
[2022-01-02 22:44] LABS: ALBUMIN 3.6 g/dL (3.5-5.0); ALKALINE PHOSPHATASE 83 U/L (38-126); ANION GAP 14.2 MEQ/L (5-15); BLOOD UREA NITROGEN 8 mg/dL (7-17); CHLORIDE 102 mmol/L (98-107); Calcium 8.6 mg/dL (8.4-10.2); Carbon Dioxide 25 mmol/L (22-30); Creatinine 1 0.55 mg/dL (0.52-1.04); EST GLOMERULAR FILTRATION RATE > 60.0 ML/MIN; Glucose 86 mg/dL (74-106); Potassium 3.8 mmol/L (3.5-5.1); SGOT/AST 23 U/L (14-36); SGPT/ALT 18 U/L (0-35); SODIUM 137 mmol/L (137-145)
[2022-01-02 22:57] LABS: Appearance SLIGHTLY CLOUDY (CLEAR); Bilirubin NEGATIVE (NEGATIVE); Dipstick done @ ? MAIN LAB; Glucose NEGATIVE (NEGATIVE); Ketones NEGATIVE (NEGATIVE); Nitrite NEGATIVE (NEGATIVE); Protein,Urine Dip 30 (Negative); RBC LARGE Ery/ul (0-5); Specific Gravity 1.015 (1.005-1.025); Urobilinogen 0.2 mg/dL (0-1)
[2022-01-02 23:03] VITALS: BP 146/97; PULSE 77; O2SAT 96
[2022-01-02 23:03] LABS: Bacteria FEW /HPF (NEGATIVE); Epithelial Cells RARE /HPF (FEW); RBC 51-100 /HPF (0-2); WBC >100 /HPF (0-5)
[2022-01-02 23:07] LABS: Urine Cultured Indicated? YES
[2022-01-02] MEDS ORDERED: KEFLEX 500 MG PO ONE (23:07)
[2022-01-02] MEDS ORDERED: KEFLEX 500 MG ONE (23:11)
--- NOTE | 2022-01-03 08:51 | XRAY ---
Indication: headache. Hypertension. Multiple contiguous images obtained through the head without contrast. Comparison: January 20, 2019. Stable small old infarct left occipital lobe. No acute intracranial hemorrhage, abnormal extra-axial fluid collection, or mass effect. Fourth ventricle is midline without hydrocephalus. Vora-white matter differentiation preserved. Bony calvarium intact. Again mild mucosal thickening both frontal/ethmoid/maxillary sinuses but less than before. Mastoid air cells are clear. Impression: Again small remote left occipital lobe infarct and pansinusitis. Remaining CT head without contrast exam is negative.
== END 2022-01-02 23:27 | disposition home or self-care (01) ==
LOC: ED 21:23
DX: N39.0 Urinary tract infection, site not specified (principal); I10 Essential (primary) hypertension; R51.9 Headache, unspecified; H53.8 Other visual disturbances; I69.398 Other sequelae of cerebral infarction
CPT/HCPCS: 36000; 36415; 70450; 80053; 81015; 85025; 87086; 93041; 96374; 96375; 99284; J2270; J2405; A9270-GY

== ENCOUNTER 2022-03-28 10:27 | Day surgery (SDC) | payer OTHER ==
--- NOTE | 2022-03-22 12:53 | HP ---
DATE OF SURGERY: 03/28/2022 HISTORY OF PRESENT ILLNESS: The patient presented with request for bilateral tubal ligation. The patient desires sterility. The patient is 3, para 3. PAST MEDICAL HISTORY: None. PAST SURGICAL HISTORY: Tonsillectomy. D&C. ALLERGIES: CODEINE. MEDICATIONS: None. FAMILY HISTORY: Diabetes, hypertension, heart disease. SOCIAL HISTORY: None. REVIEW OF SYSTEMS: CONSTITUTIONAL: Denies fever or chills. CHEST: Denies shortness of breath. CVS: Denies chest pain. ABDOMEN: Denies abdominal pain. PHYSICAL EXAMINATION: GENERAL: No acute distress. CHEST: Nonlabored. No shortness of breath. CVS: Regular rate and rhythm. ABDOMEN: Soft. IMPRESSION: Desires sterility. PLAN: Laparoscopic bilateral tubal ligation with Dr. Jose Carpenter. As dictated by Sera Oneill NP.
[~2022-03-28 10:27] MED LIST: Sensorcaine 0.25% 10 ML ONE
[2022-03-28] MEDS ORDERED: Lactated Ringers 1,000 ML IV SCH (11:00)
[2022-03-28] MEDS ORDERED: Transderm Scop 1.5MG Patch TOP PRN (11:27)
[2022-03-28] MEDS ORDERED: Reglan 10 MG/2 ML IV ONE (11:27)
[2022-03-28] MEDS ORDERED: Versed 2 MG/2 ML Injection IV PRN (11:27)
[2022-03-28] MEDS ORDERED: Pepcid 20 MG VIAL IV ONE (11:27)
[2022-03-28] MEDS ORDERED: DIPRIVAN 200 MG/20 ML IV ONE (11:47)
[2022-03-28] MEDS ORDERED: Zemuron 100 MG/10 ML ONE ×2 (11:47→11:49)
[2022-03-28] MEDS ORDERED: Xylocaine-Mpf 2% 5 Ml Vial ONE (11:47)
[2022-03-28] MEDS ORDERED: TORAdol 30 mg Injection ONE (11:50)
[2022-03-28] MEDS ORDERED: SUBLIMAZE 100 MCG/2 ML ONE (11:50)
[2022-03-28] MEDS ORDERED: Zofran 4 MG/2 ML VIAL ONE (11:50)
[2022-03-28] MEDS ORDERED: Decadron 4 MG INJ ONE (11:50)
[2022-03-28] MEDS ORDERED: Pre-Attached Lta Kit TP ONE (11:56)
[2022-03-28] MEDS ORDERED: ATROPINE SULFATE 1MG ONE (12:49)
[2022-03-28] MEDS ORDERED: BRIDION 200MG/2ML IV ONE (13:05)
[2022-03-28] MEDS ORDERED: Narcan 0.4 MG/ML ONE (13:27)
[2022-03-28 15:02] VITALS: BP 135/97; PULSE 78; O2SAT 100
--- NOTE | 2022-03-29 08:06 | OP ---
SURGERY DATE/TIME: 03/28/2022 1225 PREOPERATIVE DIAGNOSIS: Undesired fertility. POSTOPERATIVE DIAGNOSIS: Undesired fertility. PROCEDURE: Bilateral tubal ligation. SURGEON: Jose Carpenter M.D. ANESTHESIA: General. COMPLICATIONS: None. CONDITION: Stable. INDICATION: The patient is multiparity desiring infertility at this time. DESCRIPTION OF PROCEDURE: Taken to surgery. General anesthetic. Routine prep and drape. Deliberate Veress needle at the umbilicus with elevation. Insufflation pressure 14. Scope introduced 5 port site laterally. Good visualization. Uterus and gynecological structures were normal. Both tubes were normal. Both ovaries were normal. Small cyst on the left ovary. Junction of proximal and middle third, a 2 cm area transmurally fulgurated on the right, 2 cm on the left. These were inspected. The round ligaments were satisfactory. The tubes were coagulated as noted and the mesovarium pedicles at the base were satisfactory on both the left and the right. The patient tolerated the procedure satisfactorily. Findings discussed with the mother in the waiting room.
== END 2022-03-28 14:50 | disposition home or self-care (01) ==
LOC: SDC 10:27
PROVIDERS: ATTEND Surgery
DX: Z30.2 Encounter for sterilization (principal); N83.202 Unspecified ovarian cyst, left side
CPT/HCPCS: 81025; J0461; J1100; J1885; J2250; J2310; J2405; J2704; J3010; A9270-GY

== ENCOUNTER 2022-06-25 20:04 | Emergency (ER) | payer OTHER ==
[2022-06-25] MEDS ORDERED: Sodium Chloride 0.9% 1000 ML 1,000 ML IV STA (20:34)
[2022-06-25] MEDS ORDERED: Zofran 4 MG/2 ML VIAL IV ONE (20:34)
[2022-06-25] MEDS ORDERED: MORPHINE SULFATE 4 MG INJ IV ONE ×2 (20:45→22:04)
[2022-06-25] MEDS ORDERED: Sodium Chloride 0.9% 1000 ML 1,000 ML ONE (20:46)
[2022-06-25] MEDS ORDERED: Zofran 4 MG/2 ML VIAL ONE (20:46)
[2022-06-25] MEDS ORDERED: MORPHINE SULFATE 4 MG INJ ONE ×2 (20:46→22:19)
[2022-06-25 20:48] LABS: Absolute Neutrophil Ct (ANC) 8.37 x10^3/uL (1.4-6.9); Basophil (Absolute #) 0.04 x10^3/uL (0-0.4); Eosinophil % 1.2 % (0.00-5.0); Eosinophil (Absolute #) 0.14 x10^3/uL (0-0.5); Hematocrit 41.9 % (35-47); Hemoglobin 13.4 g/dL (12.0-16.0); Lymphocyte (Absolute #) 2.53 x10^3/uL (1.0-4.6); Lymphocytes % 21.6 % (24.0-44.0); Mean Cell Volume 82.3 fL (78-100); Mean Corpuscular Hemoglobin 26.3 pg (26-32); Mean Platelet Volume 11.1 fL (7.5-11.0); Monocytes % 5.1 % (0.0-12.0); Neutrophil % 71.6 % (36.0-66.0); Platelet Count 281 x10^3/uL (150-450); Red Blood Count 5.09 x10^6/uL (4.1-5.4); White Blood Count 11.7 x10^3/uL (4.0-10.5)
[2022-06-25 21:04] LABS: ALBUMIN 4.5 g/dL (3.5-5.0); ALKALINE PHOSPHATASE 88 U/L (38-126); ANION GAP 12.3 MEQ/L (5-15); BLOOD UREA NITROGEN 12 mg/dL (7-17); CHLORIDE 108 mmol/L (98-107); Calcium 8.8 mg/dL (8.4-10.2); Carbon Dioxide 22 mmol/L (22-30); Creatinine 1 0.63 mg/dL (0.52-1.04); EST GLOMERULAR FILTRATION RATE > 60.0 ML/MIN; Glucose 96 mg/dL (74-106); LIPASE 46 U/L (23-300); Potassium 4.1 mmol/L (3.5-5.1); SGOT/AST 84 U/L (14-36); SGPT/ALT 24 U/L (0-35); SODIUM 137 mmol/L (137-145); Total Protein 8.1 g/dL (6.3-8.2)
[2022-06-25 22:02] LABS: Appearance CLEAR (CLEAR); Bilirubin NEGATIVE (NEGATIVE); Dipstick done @ ? MAIN LAB; Glucose NEGATIVE (NEGATIVE); Ketones NEGATIVE (NEGATIVE); Nitrite NEGATIVE (NEGATIVE); Protein,Urine Dip NEGATIVE (Negative); RBC SMALL Ery/ul (0-5); Specific Gravity 1.025 (1.005-1.025); Urobilinogen 0.2 mg/dL (0-1)
[2022-06-25 22:04] LABS: Epithelial Cells RARE /HPF (FEW); Mucus SLIGHT /HPF (NEGATIVE); RBC 0-2 /HPF (0-2)
[2022-06-25 22:06] LABS: Urine Cultured Indicated? YES
[2022-06-25 23:11] VITALS: O2SAT 98
--- NOTE | 2022-06-26 00:07 | ERPHSYRPT ---
- History of Present Illness Time Seen by Provider: 06/25/22 20:30 Historian: patient Exam Limitations: no limitations Patient Subjective Stated Complaint: pt states she has christine having abdominal pain and right shoulder pain. related to her galbladder. pt sees Dr robertson and has appointment to see dr javed due to gallstones. pain is 8/10 in right side of abdome. Triage Nursing Assessment: pt alert and oriented. pt is holding abdomen and is sick to her stomach at this time. pt appears pale. Physician History: Patient is a 31-year-old female with a history of cholelithiasis presents to our ED with acute onset right upper quadrant pain. Pain started early this evening. Patient had a sandwich and states the pain became acutely worse. Patient was seen in our ED a few days ago for the same. She had an ultrasound at that time which revealed the gallstones. Patient's pain described as an ache that is localized to the right upper quadrant and epigastrium. Pain occasionally shoots towards her right shoulder. No trauma. No fever. No diarrhea. Patient is currently experiencing nausea and vomiting. Symptoms are mild to moderate in intensity. No specific worsening or improving factors. Patient voices no other complaints or concerns at this time. Portions of this note were created with voice recognition technology. There may be grammatical, spelling, punctuation or sound alike errors Timing/Duration: today Activities at Onset: none Quality: aching Abdominal Pain Onset Location: RUQ, epigastric Pain Radiation: shoulder (Pain tends to radiate to her right shoulder) Severity of Pain-Max: moderate Severity of Pain-Current: mild Modifying Factors: Improves With: other (Pain worsens after meals) Associated Symptoms: nausea, vomiting Previous symptoms: same symptoms as today Allergies/Adverse Reactions: codeine [From Tylenol-Codeine] Adverse Reaction (Intermediate, Verified 03/28/22 10:55) Vomiting Hx Tetanus, Diphtheria Vaccination/Date Given: Yes Hx Influenza Vaccination/Date Given: No Hx Pneumococcal Vaccination/Date Given: No Travel Risk - International Travel Have you traveled outside of the country in past 3 weeks: No - Coronavirus Screening Are you exhibiting any of the following symptoms?: No Close contact with a COVID-19 positive Pt in past 14-21 Days: No - Vaccine Status Have you recieved a Covid-19 vaccination: No - Review of Systems Constitutional: No Symptoms, No Fever, No Chills Eyes: No Symptoms Ears, Nose, & Throat: No Symptoms Respiratory: No Symptoms, No Cough, No Dyspnea Cardiac: No Symptoms, No Chest Pain, No Edema, No Syncope Abdominal/Gastrointestinal: No Symptoms, No Abdominal Pain, No Nausea, No Vomiting, No Diarrhea Genitourinary Symptoms: No Symptoms, No Dysuria Musculoskeletal: No Symptoms, No Back Pain, No Neck Pain Skin: No Symptoms, No Rash Neurological: No Symptoms, No Dizziness, No Focal Weakness, No Sensory Changes Psychological: No Symptoms Endocrine: No Symptoms Hematologic/Lymphatic: No Symptoms Immunological/Allergic: No Symptoms All Other Systems: Reviewed and Negative - Past Medical History Pertinent Past Medical History: Yes Neurological History: Migraines, Stroke ENT History: No Pertinent History Cardiac History: No Pertinent History Respiratory History: Asthma Endocrine Medical History: No Pertinent History Musculoskeletal History: No Pertinent History GI Medical History: Gallbladder Disease History: No Pertinent History Psycho-Social History: Depression Female Reproductive Disorders: Other Other Medical History: CVA 2017, R sided weakness. Miscarriage 2017 tubal ligaton - Past Surgical History Past Surgical History: Yes Neuro Surgical History: No Pertinent History Cardiac: No Pertinent History Respiratory: No Pertinent History Gastrointestinal: No Pertinent History Genitourinary: No Pertinent History Musculoskeletal: No Pertinent History Female Surgical History: No Pertinent History, Dilation & Curettage Other Surgical History: TONSILLECTOMY, D&C - Social History Smoking Status: Never smoker How long have you smoked: 1 Exposure to second hand smoke: No Alcohol Use: Socially Drug Use: none Patient Lives Alone: No Significant Family History: heart disease, cancer, hypertension - Female History Hx Last Menstrual Period: 04/17/22 Hx Now: No (tubal ligation) - Nursing Vital Signs Nursing Vital Signs: Initial Vital Signs Temperature 97.4 F 06/25/22 20:15 Pulse Rate 101 H 06/25/22 20:15 Respiratory Rate 18 06/25/22 20:15 Blood Pressure 147/105 06/25/22 20:15 O2 Sat by Pulse Oximetry 99 06/25/22 20:15 Pain Scale Pain Intensity 4 - Physical Exam General Appearance: no apparent distress, alert Eye Exam: PERRL/EOMI, eyes nml inspection Ears, Nose, Throat Exam: normal ENT inspection, pharynx normal, moist mucous membranes Neck Exam: normal inspection, non-tender, supple, full range of motion Respiratory Exam: normal breath sounds, lungs clear, airway intact, No respiratory distress Cardiovascular Exam: regular rate/rhythm, normal heart sounds, normal peripheral pulses Gastrointestinal/Abdomen Exam: soft, normal bowel sounds, tenderness (Epigastric and right upper quadrant tenderness.), No mass Back Exam: normal inspection, normal range of motion, No CVA tenderness, No vertebral tenderness Extremity Exam: normal inspection, normal range of motion, pelvis stable Neurologic Exam: alert, 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, cooperative, normal mood/affect, sensation nml, No motor deficits Skin Exam: normal color, warm, dry Lymphatic Exam: No adenopathy SpO2 Interpretation: normal SpO2: 98 O2 Delivery: Room Air - Course Nursing assessment & vital signs reviewed: Yes - CT Exams Abdomen/Pelvis CT Interpretation: Tele-radiologist Report (Normal appendix. Hepatosplenom egaly. Remaining abdomen pelvis negative) Ordered Tests: Active Orders 24 hr Category Date Time Status IV Insertion STAT Care 06/25/22 20:34 Active ABDOMEN AND PELVIS W/0 CONTRAS [CT] Stat Exams 06/25/22 20:35 Taken CBC W DIFF Stat Lab 06/25/22 20:40 Completed CMP Stat Lab 06/25/22 20:40 Completed CULTURE,URINE Stat Lab 06/25/22 20:44 Received HCG,QUALITATIVE URINE Stat Lab 06/25/22 20:44 Completed LIPASE Stat Lab 06/25/22 20:40 Completed TROPONIN Q4H Lab 06/25/22 20:40 Completed TROPONIN Q4H Lab 06/26/22 00:45 Ordered TROPONIN Q4H Lab 06/26/22 04:45 Ordered UA W/RFX CULTURE Stat Lab 06/25/22 20:44 Completed Medication Summary Discontinued Medications Generic Name Dose Route Start Last Admin Trade Name Freq PRN Reason Stop Dose Admin Sodium Chloride 1,000 mls @ 999 mls/hr 06/25/22 20:34 06/25/22 21:50 Sodium Chloride 0.9% 1000 Ml IV 06/25/22 21:34 Infused .Q1H1M STA Infusion Sodium Chloride Confirm 06/25/22 20:46 Sodium Chloride 0.9% 1000 Ml Administered 06/25/22 20:47 Dose 1,000 mls @ ud .ROUTE .STK-MED ONE Morphine Sulfate 4 mg 06/25/22 20:45 06/25/22 20:49 Morphine Sulfate 4 Mg/Ml Injection IV 06/25/22 20:46 4 mg STAT ONE Administration Morphine Sulfate Confirm 06/25/22 20:46 Morphine Sulfate 4 Mg/Ml Injection Administered 06/25/22 20:47 Dose 4 mg .ROUTE .STK-MED ONE Morphine Sulfate 4 mg 06/25/22 22:04 06/25/22 22:20 Morphine Sulfate 4 Mg/Ml Injection IV 06/25/22 22:05 4 mg STAT ONE Administration Morphine Sulfate Confirm 06/25/22 22:19 Morphine Sulfate 4 Mg/Ml Injection Administered 06/25/22 22:20 Dose 4 mg .ROUTE .STK-MED ONE Ondansetron HCl 4 mg 06/25/22 20:34 06/25/22 20:49 Ondansetron Hcl 4 Mg/2 Ml Vial IV 06/25/22 20:35 4 mg STAT ONE Administration Ondansetron HCl Confirm 06/25/22 20:46 Ondansetron Hcl 4 Mg/2 Ml Vial Administered 06/25/22 20:47 Dose 4 mg .ROUTE .STK-MED ONE Lab/Rad Data: Laboratory Result Diagrams 06/25/22 20:40 06/25/22 20:40 Laboratory Results 06/25/22 06/25/22 06/25/22 Range/Units 20:44 20:44 20:40 WBC (4.0-10.5) x10^3/uL RBC (4.1-5.4) x10^6/uL Hgb (12.0-16.0) g/dL Hct (35-47) % MCV (78-100) fL MCH (26-32) pg MCHC (32-36) g/dL RDW (11.5-14.0) % Plt Count (150-450) x10^3/uL MPV (7.5-11.0) fL Gran % (36.0-66.0) % Immature Gran % (Auto) (0.00-0.4) % Nucleat RBC Rel Count (0.00-0.1) % Eos # (Auto) (0-0.5) x10^3/uL Immature Gran # (Auto) (0.00-0.03) x10^3u/L Absolute Lymphs (auto) (1.0-4.6) x10^3/uL Absolute Monos (auto) (0.0-1.3) x10^3/uL Absolute Nucleated RBC (0.00-0.01) x10^3u/L Lymphocytes % (24.0-44.0) % Monocytes % (0.0-12.0) % Eosinophils % (0.00-5.0) % Basophils % (0.0-0.4) % Absolute Granulocytes (1.4-6.9) x10^3/uL Basophils # (0-0.4) x10^3/uL Sodium (137-145) mmol/L Potassium (3.5-5.1) mmol/L Chloride (98-107) mmol/L Carbon Dioxide (22-30) mmol/L Anion Gap (5-15) MEQ/L BUN (7-17) mg/dL Creatinine (0.52-1.04) mg/dL Estimated GFR ML/MIN Glucose (74-106) mg/dL Calcium (8.4-10.2) mg/dL Total Bilirubin (0.2-1.3) mg/dL AST (14-36) U/L ALT (0-35) U/L Alkaline Phosphatase (38-126) U/L Troponin I < 0.012 (0.000-0.034) ng/mL Serum Total Protein (6.3-8.2) g/dL Albumin (3.5-5.0) g/dL Lipase (23-300) U/L Urinalys Dipstick Clnc MAIN LAB Urine Color YELLOW (YELLOW) Urine Appearance CLEAR (CLEAR) Urine pH 6.0 (5-6) Ur Specific [place] 1.025 (1.005-1.025) POC Urine Protein Conf NEGATIVE (Negative) Urine Ketones NEGATIVE (NEGATIVE) Urine Nitrite NEGATIVE (NEGATIVE) Urine Bilirubin NEGATIVE (NEGATIVE) Urine Urobilinogen 0.2 (0-1) mg/dL Urine Leukocytes TRACE (NEGATIVE) Urine WBC (Auto) 3-5 (0-5) /HPF Urine RBC (Auto) 0-2 (0-2) /HPF U Epithel Cells (Auto) RARE (FEW) /HPF Urine Bacteria (Auto) NONE (NEGATIVE) /HPF Urine RBC SMALL (0-5) Kermit/ul Urine Mucus (Auto) SLIGHT (NEGATIVE) /HPF Ur Culture Indicated? YES Urine Glucose NEGATIVE (NEGATIVE) mg/dL Urine HCG, Qual NEGATIVE (Negative) 06/25/22 06/25/22 Range/Units 20:40 20:40 WBC 11.7 H (4.0-10.5) x10^3/uL RBC 5.09 (4.1-5.4) x10^6/uL Hgb 13.4 (12.0-16.0) g/dL Hct 41.9 (35-47) % MCV 82.3 (78-100) fL MCH 26.3 (26-32) pg MCHC 32.0 (32-36) g/dL RDW 14.0 (11.5-14.0) % Plt Count 281 (150-450) x10^3/uL MPV 11.1 H (7.5-11.0) fL Gran % 71.6 H (36.0-66.0) % Immature Gran % (Auto) 0.2 (0.00-0.4) % Nucleat RBC Rel Count 0.0 (0.00-0.1) % Eos # (Auto) 0.14 (0-0.5) x10^3/uL Immature Gran # (Auto) 0.02 (0.00-0.03) x10^3u/L Absolute Lymphs (auto) 2.53 (1.0-4.6) x10^3/uL Absolute Monos (auto) 0.60 (0.0-1.3) x10^3/uL Absolute Nucleated RBC 0.00 (0.00-0.01) x10^3u/L Lymphocytes % 21.6 L (24.0-44.0) % Monocytes % 5.1 (0.0-12.0) % Eosinophils % 1.2 (0.00-5.0) % Basophils % 0.3 (0.0-0.4) % Absolute Granulocytes 8.37 H (1.4-6.9) x10^3/uL Basophils # 0.04 (0-0.4) x10^3/uL Sodium 137 (137-145) mmol/L Potassium 4.1 (3.5-5.1) mmol/L Chloride 108 H (98-107) mmol/L Carbon Dioxide 22 (22-30) mmol/L Anion Gap 12.3 (5-15) MEQ/L BUN 12 (7-17) mg/dL Creatinine 0.63 (0.52-1.04) mg/dL Estimated GFR > 60.0 ML/MIN Glucose 96 (74-106) mg/dL Calcium 8.8 (8.4-10.2) mg/dL Total Bilirubin 0.60 (0.2-1.3) mg/dL AST 84 H (14-36) U/L ALT 24 (0-35) U/L Alkaline Phosphatase 88 (38-126) U/L Troponin I (0.000-0.034) ng/mL Serum Total Protein 8.1 (6.3-8.2) g/dL Albumin 4.5 (3.5-5.0) g/dL Lipase 46 (23-300) U/L Urinalys Dipstick Clnc Urine Color (YELLOW) Urine Appearance (CLEAR) Urine pH (5-6) Ur Specific [place] (1.005-1.025) POC Urine Protein Conf (Negative) Urine Ketones (NEGATIVE) Urine Nitrite (NEGATIVE) Urine Bilirubin (NEGATIVE) Urine Urobilinogen (0-1) mg/dL Urine Leukocytes (NEGATIVE) Urine WBC (Auto) (0-5) /HPF Urine RBC (Auto) (0-2) /HPF U Epithel Cells (Auto) (FEW) /HPF Urine Bacteria (Auto) (NEGATIVE) /HPF Urine RBC (0-5) Kermit/ul Urine Mucus (Auto) (NEGATIVE) /HPF Ur Culture Indicated? Urine Glucose (NEGATIVE) mg/dL Urine HCG, Qual (Negative) - Progress Progress: improved Progress Note: Patient reassessed. Pain significantly improved. Vital stable. Laboratory values are essentially within normal limits. CAT scan shows no acute findings. Case discussed with Dr. Martinez of the lunch group who states that he will see patient tomorrow in his [place] office at 8:30 AM plan of care discussed with patient. She agrees to follow-up with Dr. Horton tomorrow morning. She voices no other complaints or concerns at this time. Portions of this note were created with voice recognition technology. There may be grammatical, spelling, punctuation or sound alike errors 06/26/22 00:22 Discussed with : Dolly Will see patient in: office (Dr. Maral Rothman will see patient in his office tomorrow morning at 830. He will be in the [place] office) Counseled pt/family regarding: lab results, diagnosis, need for follow-up, rad results - Departure Departure Disposition: Home Clinical Impression: Biliary colic, Abdominal pain, Hepatosplenomegaly Condition: Stable Critical Care Time: No Referrals: MUNA ROBERTSON MD [Primary Care Provider] - Follow up/PCP as directed LAUREN VALERIO [COURTESY STAFF] - Follow up/PCP as directed Additional Instructions: Discharge/Care Plan EVIE BORDEN was seen on 06/26/22 in the Emergency Room. The patient was counseled regarding Diagnosis,Lab results, Imaging studies, need for follow up and when to return to the Emergency Room. Prescriptions given: Discharge Note I have spoken with the patient and/or caregivers. I have explained the patient's condition, diagnosis and treatment plan based on the information available to me at this time. I have answered the patient's and/or caregiver's questions and addressed any concerns. The patient and/or caregivers have as good understanding of the patient's diagnosis, condition and treatment plan as can be expected at this point. The vital signs have been stable. The patient's condition is stable and appropriate for discharge from the emergency department. The patient will pursue further outpatient evaluation with the primary care physician or other designated or consulting physician as outlined in the discharge instructions. The patient and/or caregivers are agreeable to this plan of care and follow-up instructions have been explained in detail. The patient and/or caregivers have received these instruction. The patient/and or caregivers are aware that any significant change in condition or worsening of symptoms should prompt an immediate return to this or the closest emergency department or call 911.
[2022-06-26 00:40] VITALS: BP 125/86; PULSE 89
--- NOTE | 2022-06-26 08:34 | XRAY ---
Indication: Right upper quadrant pain. Nausea and vomiting. Gallstones. Multiple contiguous axial images obtained through the abdomen and pelvis without contrast. Comparison: August 18, 2016. Lung bases remain clear. Heart not enlarged. Noncontrasted stomach and bowel loops nonobstructed again with normal appendix. No free fluid/air. Again incidental 13.9 cm splenomegaly and 20.7 cm hepatomegaly. Remaining liver, gallbladder, pancreas, spleen, adrenal glands, kidneys, ureters, bladder, uterus, and aorta are unremarkable for noncontrast exam. Osseous structures intact again with L5-S1 degenerative changes. Impression: 1. Again hepatosplenomegaly. 2. Remaining CT abdomen/pelvis without contrast exam is negative.
== END 2022-06-26 00:40 | disposition home or self-care (01) ==
LOC: ED 20:04
DX: K80.50 Calculus of bile duct without cholangitis or cholecystitis without obstruction (principal); R10.11 Right upper quadrant pain; R16.2 Hepatomegaly with splenomegaly, not elsewhere classified; R11.2 Nausea with vomiting, unspecified; R10.13 Epigastric pain; Z28.310 Unvaccinated for COVID-19
CPT/HCPCS: 36000; 36415; 74176; 80053; 81015; 81025; 83690; 84484; 85025; 87086; 96374; 96375; 96376; 99284; J2270; J2405

== ENCOUNTER 2022-10-14 12:41 | Emergency (ER) | payer OTHER ==
--- NOTE | 2022-10-14 12:52 | ERPHSYRPT ---
- History of Present Illness Time Seen by Provider: 10/14/22 12:52 Historian: patient Exam Limitations: no limitations Patient Subjective Stated Complaint: PT states "I was sitting there at work and my chest had alot of pressure. It felt like it did when I used to have ga lbladder attacks but I do not have a gall bladder anymore." Triage Nursing Assessment: Pt presented alert and oriented X 3, skin pwd. Pt ambulates with an upright steady gait, able to speak in clear full sentences pt in no apaprent respiratory distress. Physician History: This is a 32-year-old white female patient of Dr. Lantigua who has a history of migraine headaches, CVAs, asthma, depression and is not on any medication. She is allergic to codeine. She was at work today just sitting without doing any activity and she noticed chest pressure that was distal central substernal and epigastric pressure. It felt like prior gallbladder attack but she has had her gallbladder removed. She does not have shortness of breath. She has no abdominal pain. Timing/Duration: today Quality: pressure Location: substernal, central, epigastric Chest Pain Radiation: no radiation Severity of Pain-Max: mild Severity of Pain-Current: mild Modifying Factors: Improves With: nothing Associated Symptoms: denies symptoms Prior Chest Pain/Cardiac Workup: no prior chest pain Nitro Today/Relief: no nitro taken today Aspirin Treatment Today: no aspirin today Allergies/Adverse Reactions: codeine [From Tylenol-Codeine] Adverse Reaction (Intermediate, Verified 03/28/22 10:55) Vomiting Home Medications: No Reportable Medications [No Reported Medications] 10/14/22 [History] Hx Tetanus, Diphtheria Vaccination/Date Given: Yes Hx Influenza Vaccination/Date Given: No Hx Pneumococcal Vaccination/Date Given: No Immunizations Up to Date: Yes Travel Risk - International Travel Have you traveled outside of the country in past 3 weeks: No - Coronavirus Screening Are you exhibiting any of the following symptoms?: No Close contact with a COVID-19 positive Pt in past 14-21 Days: No - Vaccine Status Have you recieved a Covid-19 vaccination: No - Review of Systems Constitutional: No Symptoms Eyes: No Symptoms Ears, Nose, & Throat: No Symptoms Respiratory: No Symptoms Cardiac: Chest Pain (Scribed as nonradiating pressure) Abdominal/Gastrointestinal: No Symptoms Genitourinary Symptoms: No Symptoms Musculoskeletal: No Symptoms Skin: No Symptoms Neurological: No Symptoms Psychological: No Symptoms Endocrine: No Symptoms Hematologic/Lymphatic: No Symptoms Immunological/Allergic: No Symptoms All Other Systems: Reviewed and Negative - Past Medical History Pertinent Past Medical History: Yes Neurological History: Migraines, Stroke ENT History: No Pertinent History Cardiac History: No Pertinent History Respiratory History: Asthma Endocrine Medical History: No Pertinent History Musculoskeletal History: No Pertinent History GI Medical History: Gallbladder Disease History: No Pertinent History Psycho-Social History: Depression Female Reproductive Disorders: Other Other Medical History: CVA 2017, R sided weakness. Miscarriage 2017 tubal ligaton - Past Surgical History Past Surgical History: Yes Neuro Surgical History: No Pertinent History Cardiac: No Pertinent History Respiratory: No Pertinent History Gastrointestinal: Cholecystectomy Genitourinary: No Pertinent History Musculoskeletal: No Pertinent History Female Surgical History: No Pertinent History, Dilation & Curettage Other Surgical History: TONSILLECTOMY, D&C and ablasion - Social History Smoking Status: Never smoker How long have you smoked: 1 Exposure to second hand smoke: No Alcohol Use: Socially Drug Use: none Patient Lives Alone: No Significant Family History: heart disease, cancer, hypertension - Female History Hx Last Menstrual Period: 08/01/2022 Hx Now: No - Nursing Vital Signs Nursing Vital Signs: Initial Vital Signs Temperature 97.7 F 10/14/22 12:41 Pulse Rate 98 H 10/14/22 12:41 Respiratory Rate 22 10/14/22 12:41 Blood Pressure 166/104 10/14/22 12:41 O2 Sat by Pulse Oximetry 100 10/14/22 12:41 Pain Scale Pain Intensity 4 - Physical Exam General Appearance: no apparent distress, alert, anxiety Eye Exam: PERRL/EOMI, eyes nml inspection Ears, Nose, Throat Exam: normal ENT inspection, moist mucous membranes Neck Exam: normal inspection, non-tender, supple, full range of motion Respiratory Exam: normal breath sounds, chest tenderness, lungs clear (Described as nonradiating pressure), airway intact, No respiratory distress Cardiovascular Exam: regular rate/rhythm, normal heart sounds, normal peripheral pulses Gastrointestinal/Abdomen Exam: soft, normal bowel sounds, No tenderness Pelvic Exam: not done Rectal Exam: not done Back Exam: normal inspection, normal range of motion, No CVA tenderness, No vertebral tenderness Extremity Exam: normal inspection, normal range of motion, pelvis stable Neurologic Exam: alert, 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, cooperative, court manager II-XII nml as tested, normal mood/affect, nml cerebellar function, nml station & gait, sensation nml Skin Exam: normal color, warm, dry Lymphatic Exam: No adenopathy SpO2 Interpretation: normal SpO2: 100 O2 Delivery: Room Air - Course Nursing assessment & vital signs reviewed: Yes EKG Interpreted by Me: RATE ([id number]), Sinus Rhythm, NORMAL AXIS, NORMAL INTERVALS, NORMAL QRS, NORMAL ST-T, Other (No acute ischemic changes on today's EKG. This twelve-lead EKG was interpreted by me.) Ordered Tests: Active Orders 24 hr Category Date Time Status Orientation & Mobility Specialist STAT Care 10/14/22 12:53 Active EKG-ER Only STAT Care 10/14/22 12:53 Active IV Insertion STAT Care 10/14/22 12:53 Active Pulse Oximetry (ED) STAT Care 10/14/22 12:53 Active CBC W DIFF Stat Lab 10/14/22 12:50 Completed CMP Stat Lab 10/14/22 12:50 Completed D-DIMER QUANTITATIVE Stat Lab 10/14/22 12:50 Completed PROTIME WITH INR Stat Lab 10/14/22 12:50 Completed TROPONIN Q4H Lab 10/14/22 12:50 Completed TROPONIN Q4H Lab 10/14/22 17:00 Ordered TROPONIN Q4H Lab 10/14/22 21:00 Ordered Medication Summary Discontinued Medications Generic Name Dose Route Start Last Admin Trade Name Freq PRN Reason Stop Dose Admin Aspirin 324 mg 10/14/22 12:53 10/14/22 13:12 Aspirin 81 Mg Tab.Chew PO 10/14/22 12:54 324 mg STAT ONE Administration Lab/Rad Data: Laboratory Result Diagrams 10/14/22 12:50 10/14/22 12:50 Laboratory Results 10/14/22 10/14/22 10/14/22 Range/Units 12:50 12:50 12:50 WBC (4.0-10.5) x10^3/uL RBC (4.1-5.4) x10^6/uL Hgb (12.0-16.0) g/dL Hct (35-47) % MCV (78-100) fL MCH (26-32) pg MCHC (32-36) g/dL RDW (11.5-14.0) % Plt Count (150-450) x10^3/uL MPV (7.5-11.0) fL Gran % (36.0-66.0) % Immature Gran % (Auto) (0.00-0.4) % Nucleat RBC Rel Count (0.00-0.1) % Eos # (Auto) (0-0.5) x10^3/uL Immature Gran # (Auto) (0.00-0.03) x10^3u/L Absolute Lymphs (auto) (1.0-4.6) x10^3/uL Absolute Monos (auto) (0.0-1.3) x10^3/uL Absolute Nucleated RBC (0.00-0.01) x10^3u/L Lymphocytes % (24.0-44.0) % Monocytes % (0.0-12.0) % Eosinophils % (0.00-5.0) % Basophils % (0.0-0.4) % Absolute Granulocytes (1.4-6.9) x10^3/uL Basophils # (0-0.4) x10^3/uL PT 10.7 (9.4-12.5) SECONDS INR 1.01 (0.8-3.0) D-Dimer < 0.19 (0.0-0.50) mg/L Sodium 137 (137-145) mmol/L Potassium 3.7 (3.5-5.1) mmol/L Chloride 103 (98-107) mmol/L Carbon Dioxide 26 (22-30) mmol/L Anion Gap 12.0 (5-15) MEQ/L BUN 13 (7-17) mg/dL Creatinine 0.67 (0.52-1.04) mg/dL Estimated GFR > 60.0 ML/MIN Glucose 97 (74-106) mg/dL Calcium 8.6 (8.4-10.2) mg/dL Total Bilirubin 0.70 (0.2-1.3) mg/dL AST 34 (14-36) U/L ALT 14 (0-35) U/L Alkaline Phosphatase 87 (38-126) U/L Troponin I < 0.012 (0.000-0.034) ng/mL Serum Total Protein 8.7 H (6.3-8.2) g/dL Albumin 4.7 (3.5-5.0) g/dL 10/14/22 Range/Units 12:50 WBC 7.6 (4.0-10.5) x10^3/uL RBC 5.52 H (4.1-5.4) x10^6/uL Hgb 14.7 (12.0-16.0) g/dL Hct 45.5 (35-47) % MCV 82.4 (78-100) fL MCH 26.6 (26-32) pg MCHC 32.3 (32-36) g/dL RDW 13.5 (11.5-14.0) % Plt Count 299 (150-450) x10^3/uL MPV 11.6 H (7.5-11.0) fL Gran % 67.3 H (36.0-66.0) % Immature Gran % (Auto) 0.1 (0.00-0.4) % Nucleat RBC Rel Count 0.0 (0.00-0.1) % Eos # (Auto) 0.08 (0-0.5) x10^3/uL Immature Gran # (Auto) 0.01 (0.00-0.03) x10^3u/L Absolute Lymphs (auto) 1.92 (1.0-4.6) x10^3/uL Absolute Monos (auto) 0.43 (0.0-1.3) x10^3/uL Absolute Nucleated RBC 0.00 (0.00-0.01) x10^3u/L Lymphocytes % 25.3 (24.0-44.0) % Monocytes % 5.7 (0.0-12.0) % Eosinophils % 1.1 (0.00-5.0) % Basophils % 0.5 (0.0-0.4) % Absolute Granulocytes 5.11 (1.4-6.9) x10^3/uL Basophils # 0.04 (0-0.4) x10^3/uL PT (9.4-12.5) SECONDS INR (0.8-3.0) D-Dimer (0.0-0.50) mg/L Sodium (137-145) mmol/L Potassium (3.5-5.1) mmol/L Chloride (98-107) mmol/L Carbon Dioxide (22-30) mmol/L Anion Gap (5-15) MEQ/L BUN (7-17) mg/dL Creatinine (0.52-1.04) mg/dL Estimated GFR ML/MIN Glucose (74-106) mg/dL Calcium (8.4-10.2) mg/dL Total Bilirubin (0.2-1.3) mg/dL AST (14-36) U/L ALT (0-35) U/L Alkaline Phosphatase (38-126) U/L Troponin I (0.000-0.034) ng/mL Serum Total Protein (6.3-8.2) g/dL Albumin (3.5-5.0) g/dL - Progress Progress: improved, re-examined, unchanged Air Movement: good - Departure Departure Disposition: Home Clinical Impression: Non-cardiac chest pain Condition: Stable Critical Care Time: No Referrals: MUNA LANTIGUA MD [Primary Care Provider] - Follow up/PCP as directed Additional Instructions: Follow-up with your primary care provider for further evaluation management. Return to the emergency department if symptoms recur.
[2022-10-14] MEDS ORDERED: BABY ASPIRIN 81 MG CHEW PO ONE (12:53)
[2022-10-14 13:16] LABS: Absolute Neutrophil Ct (ANC) 5.11 x10^3/uL (1.4-6.9); BASOPHIL % 0.5 % (0.0-0.4); Basophil (Absolute #) 0.04 x10^3/uL (0-0.4); Eosinophil % 1.1 % (0.00-5.0); Eosinophil (Absolute #) 0.08 x10^3/uL (0-0.5); Hematocrit 45.5 % (35-47); Hemoglobin 14.7 g/dL (12.0-16.0); IMMATURE GRAN # 0.01 x10^3u/L (0.00-0.03); IMMATURE GRAN % 0.1 % (0.00-0.4); Lymphocyte (Absolute #) 1.92 x10^3/uL (1.0-4.6); Lymphocytes % 25.3 % (24.0-44.0); Mean Cell Volume 82.4 fL (78-100); Mean Corpuscular Hemoglobin 26.6 pg (26-32); Mean Corpuscular Hgb Concent. 32.3 g/dL (32-36); Mean Platelet Volume 11.6 fL (7.5-11.0); Monocyte (Absolute #) 0.43 x10^3/uL (0.0-1.3); Monocytes % 5.7 % (0.0-12.0); Neutrophil % 67.3 % (36.0-66.0); Platelet Count 299 x10^3/uL (150-450); Red Blood Count 5.52 x10^6/uL (4.1-5.4); Red Cell Distribution Width 13.5 % (11.5-14.0); White Blood Count 7.6 x10^3/uL (4.0-10.5)
[2022-10-14 13:32] LABS: D-DIMER QUANTITATIVE < 0.19 mg/L (0.0-0.50); INR 1.01 (0.8-3.0); PROTIME 10.7 SECONDS (9.4-12.5)
[2022-10-14 13:36] LABS: ALBUMIN 4.7 g/dL (3.5-5.0); ALKALINE PHOSPHATASE 87 U/L (38-126); BLOOD UREA NITROGEN 13 mg/dL (7-17); CHLORIDE 103 mmol/L (98-107); Calcium 8.6 mg/dL (8.4-10.2); Carbon Dioxide 26 mmol/L (22-30); Creatinine 1 0.67 mg/dL (0.52-1.04); EST GLOMERULAR FILTRATION RATE > 60.0 ML/MIN; Glucose 97 mg/dL (74-106); Potassium 3.7 mmol/L (3.5-5.1); SGOT/AST 34 U/L (14-36); SGPT/ALT 14 U/L (0-35); SODIUM 137 mmol/L (137-145); Total Protein 8.7 g/dL (6.3-8.2)
[2022-10-14 14:29] VITALS: BP 116/52; PULSE 86; O2SAT 98
== END 2022-10-14 14:51 | disposition home or self-care (01) ==
LOC: ED 12:41
DX: R07.89 Other chest pain (principal); Z28.310 Unvaccinated for COVID-19
CPT/HCPCS: 36000; 36415; 80053; 84484; 85025; 85379; 85610; 93005; 93041; 94760; 99284; A9270-GY

== ENCOUNTER 2023-01-06 09:08 | Emergency (ER) | payer OTHER ==
--- NOTE | 2023-01-06 09:13 | ERPHSYRPT ---
- History of Present Illness Time Seen by Provider: 01/06/23 09:12 Source: patient Exam Limitations: no limitations Physician History: This is an overweight 32-year-old white female patient who has a history of a CVA in 2017 and has mild right-sided weakness and presents to the emergency department with dizziness, mild blurred vision and headache since 2230 last p.m. (01/05/2023). Patient has a history of migraine headaches and asthma as well. Patient is on an antidepressant but no other medications. Her initial blood pressure here in the emergency department was 145/105. Patient has 3 children that she needed to care for last evening and could not come to the emergency department until this morning. Patient is not on an aspirin or any instillation therapy. Timing/Duration: yesterday Severity: mild Character of Deficits: vision problems (Describes it as blurred) Deficits: no difficulties Baseline/Normal Cognition: alert 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 Current Cognition: alert 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 Baseline Gait: walks w/o assistance Associated Symptoms: vision changes, headache, other (Dizziness) Allergies/Adverse Reactions: codeine [From Tylenol-Codeine] Adverse Reaction (Intermediate, Verified 03/28/22 10:55) Vomiting Home Medications: Sertraline HCl [Zoloft] 1 tab PO DAILY 01/06/23 [History] Hx Tetanus, Diphtheria Vaccination/Date Given: Yes Hx Influenza Vaccination/Date Given: No Hx Pneumococcal Vaccination/Date Given: No Travel Risk - International Travel Have you traveled outside of the country in past 3 weeks: No - Coronavirus Screening Are you exhibiting any of the following symptoms?: No Close contact with a COVID-19 positive Pt in past 14-21 Days: No - Vaccine Status Have you recieved a Covid-19 vaccination: No - Review of Systems Constitutional: No Symptoms Eyes: Vision Changes (Described as blurred vision) Ears, Nose, & Throat: No Symptoms Respiratory: No Symptoms Cardiac: No Symptoms Abdominal/Gastrointestinal: No Symptoms Genitourinary Symptoms: No Symptoms Musculoskeletal: No Symptoms Skin: No Symptoms Neurological: Dizziness, Headache Psychological: No Symptoms Endocrine: No Symptoms Hematologic/Lymphatic: No Symptoms Immunological/Allergic: No Symptoms All Other Systems: Reviewed and Negative - Past Medical History Pertinent Past Medical History: Yes Neurological History: Migraines, Stroke ENT History: No Pertinent History Cardiac History: No Pertinent History Respiratory History: Asthma Endocrine Medical History: No Pertinent History Musculoskeletal History: No Pertinent History GI Medical History: Gallbladder Disease History: No Pertinent History Psycho-Social History: Depression Female Reproductive Disorders: Other Other Medical History: CVA 2017, R sided weakness. Miscarriage 2017 tubal ligaton - Past Surgical History Past Surgical History: Yes Neuro Surgical History: No Pertinent History Cardiac: No Pertinent History Respiratory: No Pertinent History Gastrointestinal: Cholecystectomy Genitourinary: No Pertinent History Musculoskeletal: No Pertinent History Female Surgical History: No Pertinent History, Dilation & Curettage Other Surgical History: TONSILLECTOMY, D&C and ablasion - Social History Smoking Status: Never smoker How long have you smoked: 1 Exposure to second hand smoke: No Alcohol Use: Socially Drug Use: none Patient Lives Alone: No Significant Family History: heart disease, cancer, hypertension - Nursing Vital Signs Nursing Vital Signs: Initial Vital Signs Temperature 97.9 F 01/06/23 09:16 Pulse Rate 86 01/06/23 09:16 Respiratory Rate 18 01/06/23 09:16 Blood Pressure 145/105 01/06/23 09:16 O2 Sat by Pulse Oximetry 99 01/06/23 09:16 Pain Scale Pain Intensity 0 - [place] Coma Scale Best Eye Response ([place]): (4) open spontaneously Best Verbal Response ([place]): (5) oriented Best Motor Response ([place]): (6) obeys commands [place] Total: 15 - Physical Exam General Appearance: no apparent distress, alert, anxiety Eye Exam: bilateral eye: normal inspection, PERRL, EOMI Ears, Nose, Throat Exam: normal ENT inspection, moist mucous membranes Neck Exam: normal inspection, non-tender, supple, full range of motion Respiratory: normal breath sounds, lungs clear, airway intact, No chest tenderness, No respiratory distress Cardiovascular: regular rate/rhythm, normal heart sounds, normal peripheral pulses Gastrointestinal: soft, normal bowel sounds, No tenderness Pelvic Exam: deferred Rectal Exam: deferred Back Exam: normal inspection, normal range of motion, No CVA tenderness, No vertebral tenderness Extremity Exam: normal inspection, normal range of motion, pelvis stable Mental Status: alert, 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, cooperative receiving worker Exam: normal hearing, normal speech, PERRL, tongue midline Coordination/Gait: normal finger to nose, normal gait, normal cerebellar function Motor/Sensory: no motor deficit, no sensory deficit, no pronator drift Skin Exam: normal color, warm, dry SpO2 Interpretation: normal O2 Delivery: Room Air - Course Nursing assessment & vital signs reviewed: Yes EKG Interpreted by Me: RATE (76), Sinus Rhythm, NORMAL AXIS, NORMAL INTERVALS, NORMAL QRS, NORMAL ST-T, Other (No acute ischemic changes on today's twelve-lead EKG.) Ordered Tests: Active Orders 24 hr Category Date Time Status EKG-ER Only STAT Care 01/06/23 09:39 Active IV Insertion STAT Care 01/06/23 09:39 Active HEAD WITHOUT CONTRAST [CT] Stat Exams 01/06/23 09:40 Completed CBC W DIFF Stat Lab 01/06/23 09:58 Completed CMP Stat Lab 01/06/23 09:58 Completed HCG QUALITATIVE, URINE Stat Lab 01/06/23 10:24 Completed TROPONIN Q4H Lab 01/06/23 09:58 Completed TROPONIN Q4H Lab 01/06/23 13:45 Ordered TROPONIN Q4H Lab 01/06/23 17:45 Ordered UA W/RFX UR CULTURE Stat Lab 01/06/23 10:24 Completed Urine Triage Profile Stat Lab 01/06/23 10:24 Completed Lab/Rad Data: Laboratory Result Diagrams 01/06/23 09:58 01/06/23 09:58 Laboratory Results 01/06/23 01/06/23 01/06/23 Range/Units 10:24 10:24 10:24 WBC (4.0-10.5) x10^3/uL RBC (4.1-5.4) x10^6/uL Hgb (12.0-16.0) g/dL Hct (35-47) % MCV (78-100) fL MCH (26-32) pg MCHC (32-36) g/dL RDW (11.5-14.0) % Plt Count (150-450) x10^3/uL MPV (7.5-11.0) fL Gran % (36.0-66.0) % Immature Gran % (Auto) (0.00-0.4) % Nucleat RBC Rel Count (0.00-0.1) % Eos # (Auto) (0-0.5) x10^3/uL Immature Gran # (Auto) (0.00-0.03) x10^3u/L Absolute Lymphs (auto) (1.0-4.6) x10^3/uL Absolute Monos (auto) (0.0-1.3) x10^3/uL Absolute Nucleated RBC (0.00-0.01) x10^3u/L Lymphocytes % (24.0-44.0) % Monocytes % (0.0-12.0) % Eosinophils % (0.00-5.0) % Basophils % (0.0-0.4) % Absolute Granulocytes (1.4-6.9) x10^3/uL Basophils # (0-0.4) x10^3/uL Sodium (137-145) mmol/L Potassium (3.5-5.1) mmol/L Chloride (98-107) mmol/L Carbon Dioxide (22-30) mmol/L Anion Gap (5-15) MEQ/L BUN (7-17) mg/dL Creatinine (0.52-1.04) mg/dL Estimated GFR ML/MIN Glucose (74-106) mg/dL Calcium (8.4-10.2) mg/dL Total Bilirubin (0.2-1.3) mg/dL AST (14-36) U/L ALT (0-35) U/L Alkaline Phosphatase (38-126) U/L Troponin I (0.000-0.034) ng/mL Serum Total Protein (6.3-8.2) g/dL Albumin (3.5-5.0) g/dL Urine Color Yellow (Yellow) Urine Appearance Clear (Clear) Urine pH 6.0 (4.6-8.0) Ur Specific [place] <=1.005 (1.005-1.030) Urine Protein Negative (Negative) Urine Glucose (UA) Negative (Negative) mg/dL Urine Ketones Negative (Negative) Urine Blood Trace (Negative) Urine Nitrite Negative (Negative) Urine Bilirubin Negative (Negative) Urine Urobilinogen 0.2 (0.2) mg/dL Ur Leukocyte Esterase Negative (Negative) U Hyaline Cast (Auto) NONE SEEN (0-2) /LPF Urine Microscopic RBC 0-2 (0-5) /HPF Urine Microscopic WBC 0-2 (0-5) /HPF Ur Epithelial Cells Few (None Seen) /HPF Urine Bacteria None Seen (None Seen) /HPF Urine Culture Reflexed NO (NO) Urine HCG, Qual NEGATIVE (NEGATIVE) Urine Opiates Level NEGATIVE (NEGATIVE) Ur Methadone NEGATIVE (NEGATIVE) Urine Barbiturates NEGATIVE (NEGATIVE) Ur Phencyclidine (PCP) NEGATIVE (NEGATIVE) Urine Amphetamine NEGATIVE (NEGATIVE) U Benzodiazepine Level NEGATIVE (NEGATIVE) Urine Cocaine NEGATIVE (NEGATIVE) Urine Marijuana (THC) NEGATIVE (NEGATIVE) 01/06/23 01/06/23 01/06/23 Range/Units 09:58 09:58 09:58 WBC 6.0 (4.0-10.5) x10^3/uL RBC 5.31 (4.1-5.4) x10^6/uL Hgb 14.2 (12.0-16.0) g/dL Hct 44.0 (35-47) % MCV 82.9 (78-100) fL MCH 26.7 (26-32) pg MCHC 32.3 (32-36) g/dL RDW 14.2 H (11.5-14.0) % Plt Count 269 (150-450) x10^3/uL MPV 11.1 H (7.5-11.0) fL Gran % 54.7 (36.0-66.0) % Immature Gran % (Auto) 0.3 (0.00-0.4) % Nucleat RBC Rel Count 0.0 (0.00-0.1) % Eos # (Auto) 0.19 (0-0.5) x10^3/uL Immature Gran # (Auto) 0.02 (0.00-0.03) x10^3u/L Absolute Lymphs (auto) 2.12 (1.0-4.6) x10^3/uL Absolute Monos (auto) 0.34 (0.0-1.3) x10^3/uL Absolute Nucleated RBC 0.00 (0.00-0.01) x10^3u/L Lymphocytes % 35.2 (24.0-44.0) % Monocytes % 5.6 (0.0-12.0) % Eosinophils % 3.2 (0.00-5.0) % Basophils % 1.0 (0.0-0.4) % Absolute Granulocytes 3.30 (1.4-6.9) x10^3/uL Basophils # 0.06 (0-0.4) x10^3/uL Sodium 139 (137-145) mmol/L Potassium 3.8 (3.5-5.1) mmol/L Chloride 102 (98-107) mmol/L Carbon Dioxide 30 (22-30) mmol/L Anion Gap 10.9 (5-15) MEQ/L BUN 10 (7-17) mg/dL Creatinine 0.67 (0.52-1.04) mg/dL Estimated GFR > 60.0 ML/MIN Glucose 83 (74-106) mg/dL Calcium 8.7 (8.4-10.2) mg/dL Total Bilirubin 0.30 (0.2-1.3) mg/dL AST 26 (14-36) U/L ALT 16 (0-35) U/L Alkaline Phosphatase 84 (38-126) U/L Troponin I < 0.012 (0.000-0.034) ng/mL Serum Total Protein 8.0 (6.3-8.2) g/dL Albumin 4.4 (3.5-5.0) g/dL Urine Color (Yellow) Urine Appearance (Clear) Urine pH (4.6-8.0) Ur Specific [place] (1.005-1.030) Urine Protein (Negative) Urine Glucose (UA) (Negative) mg/dL Urine Ketones (Negative) Urine Blood (Negative) Urine Nitrite (Negative) Urine Bilirubin (Negative) Urine Urobilinogen (0.2) mg/dL Ur Leukocyte Esterase (Negative) U Hyaline Cast (Auto) (0-2) /LPF Urine Microscopic RBC (0-5) /HPF Urine Microscopic WBC (0-5) /HPF Ur Epithelial Cells (None Seen) /HPF Urine Bacteria (None Seen) /HPF Urine Culture Reflexed (NO) Urine HCG, Qual (NEGATIVE) Urine Opiates Level (NEGATIVE) Ur Methadone (NEGATIVE) Urine Barbiturates (NEGATIVE) Ur Phencyclidine (PCP) (NEGATIVE) Urine Amphetamine (NEGATIVE) U Benzodiazepine Level (NEGATIVE) Urine Cocaine (NEGATIVE) Urine Marijuana (THC) (NEGATIVE) - Progress Progress: improved Progress Note: 01/06/23 12:34 CT scan of the head without contrast shows worsening pansinusitis. There is a remote, stable left occipital infarct. There are no acute intracranial abnormalities. The impression was made by the radiologist and I reviewed this impression. This patient's medical issue is 1 of moderate complexity. The level of complexity and the work-up performed is based on the review of the patient's past medical history, medication list, drug allergy list, finding on physical examination. The work-up performed a CT scan of the head. Intravenous line, CBC, CMP, urinalysis, urine drug screen, troponin level, twelve-lead EKG. I reviewed the results of these studies and the patient has a pansinusitis that is worse when compared to a prior CT scan of the head. We will treat the patient with intravenous Rocephin here in the emergency department and then send a prescription to her pharmacy via computer for a Z-Jakub and steroids. Counseled pt/family regarding: lab results, diagnosis, need for follow-up, rad results Medical Desision Making - Discussion of managment Reviewed:: Test results Agreed on:: Treatment plan, need for follow-up - Diagnostic Testing Diagnostic test were ordered, analyzed, and reviewed by me: Yes Radiological Interpretation: Reviewed by me, Teleradiologist Report - Risk of complications The pt has a mod risk of morbidity or mortality based on: Need for prescription drug management - Departure Departure Disposition: Home Clinical Impression: Dizziness, Pansinusitis Condition: Stable Critical Care Time: No Referrals: MUNA LANTIGUA MD [Primary Care Provider] - Follow up/PCP as directed Additional Instructions: Take your medication as prescribed. Call your primary prescribing provider today for arrangement of a follow-up appointment. Prescriptions: Prednisone 10 mg [Deltasone 10 mg] 10 mg PO TID #12 tablet Azithromycin 250 mg [Zithromax 250 MG TABLET] 250 mg PO ZPACK #6 tablet
[2023-01-06 10:29] LABS: Basophil (Absolute #) 0.06 x10^3/uL (0-0.4); Eosinophil % 3.2 % (0.00-5.0); Eosinophil (Absolute #) 0.19 x10^3/uL (0-0.5); Hemoglobin 14.2 g/dL (12.0-16.0); IMMATURE GRAN # 0.02 x10^3u/L (0.00-0.03); IMMATURE GRAN % 0.3 % (0.00-0.4); Lymphocyte (Absolute #) 2.12 x10^3/uL (1.0-4.6); Lymphocytes % 35.2 % (24.0-44.0); Mean Cell Volume 82.9 fL (78-100); Mean Corpuscular Hemoglobin 26.7 pg (26-32); Mean Corpuscular Hgb Concent. 32.3 g/dL (32-36); Mean Platelet Volume 11.1 fL (7.5-11.0); Monocyte (Absolute #) 0.34 x10^3/uL (0.0-1.3); Monocytes % 5.6 % (0.0-12.0); Neutrophil % 54.7 % (36.0-66.0); Platelet Count 269 x10^3/uL (150-450); Red Blood Count 5.31 x10^6/uL (4.1-5.4); Red Cell Distribution Width 14.2 % (11.5-14.0)
[2023-01-06 10:32] LABS: Appearance Clear (Clear); Bilirubin Negative (Negative); Blood Trace (Negative); Glucose, Urine Negative (Negative); Ketones Negative (Negative); Leukocyte Esterase Negative (Negative); Nitrite Negative (Negative); Protein,Urine Dip Negative (Negative); Specific Gravity <=1.005 (1.005-1.030); Urobilinogen 0.2 mg/dL (0.2)
[2023-01-06 10:39] LABS: Bacteria None Seen /HPF (None Seen); Epithelial Cells Few /HPF (None Seen); Hyaline Casts NONE SEEN /LPF (0-2); RBC 0-2 /HPF (0-5); WBC 0-2 /HPF (0-5)
[2023-01-06 10:46] LABS: Amphetamine,Urine NEGATIVE (NEGATIVE); Barbiturate,Urine NEGATIVE (NEGATIVE); Benzodiazepine,Urine NEGATIVE (NEGATIVE); Cocaine,Urine NEGATIVE (NEGATIVE); Methadone,Urine NEGATIVE (NEGATIVE); Opiate,Urine NEGATIVE (NEGATIVE); PCP,Urine NEGATIVE (NEGATIVE); THC,Urine NEGATIVE (NEGATIVE)
[2023-01-06 10:48] LABS: ADD URINE CULTURE? NO (NO)
[2023-01-06 11:07] LABS: ALBUMIN 4.4 g/dL (3.5-5.0); ALKALINE PHOSPHATASE 84 U/L (38-126); ANION GAP 10.9 MEQ/L (5-15); BLOOD UREA NITROGEN 10 mg/dL (7-17); CHLORIDE 102 mmol/L (98-107); Calcium 8.7 mg/dL (8.4-10.2); Carbon Dioxide 30 mmol/L (22-30); Creatinine 1 0.67 mg/dL (0.52-1.04); EST GLOMERULAR FILTRATION RATE > 60.0 ML/MIN; Glucose 83 mg/dL (74-106); Potassium 3.8 mmol/L (3.5-5.1); SGOT/AST 26 U/L (14-36); SGPT/ALT 16 U/L (0-35); SODIUM 139 mmol/L (137-145)
[2023-01-06 11:37] LABS: HCG URINE TEST NEGATIVE (NEGATIVE)
[2023-01-06 11:38] VITALS: O2SAT 98
--- NOTE | 2023-01-06 12:04 | XRAY ---
Indication: Dizziness and blurred vision. Multiple contiguous axial images obtained through the head without contrast. Comparison: January 02, 2022 Stable small old infarct left occipital lobe. No acute intracranial hemorrhage, abnormal extra-axial fluid collection, or mass effect. Fourth ventricle is midline without hydrocephalus. Vora-white matter differentiation preserved. Bony calvarium intact. Worsening pansinusitis, greatest left sphenoid sinus. Mastoid air cells are clear. Impression: Worsening pansinusitis. Stable remote infarct left occipital lobe. No acute intracranial abnormalities.
[2023-01-06] MEDS ORDERED: ROCEPHIN 1 Gm-D5w 50 ml Bag** 1 G/50 ML IVPB IV STA (12:49)
[2023-01-06] MEDS ORDERED: ROCEPHIN 1 Gm-D5w 50 ml Bag** 1 G/50 ML IVPB IV ONE (12:50)
[2023-01-06 13:36] VITALS: BP 132/70; PULSE 88
== END 2023-01-06 13:37 | disposition home or self-care (01) ==
LOC: ED 09:08
DX: J32.4 Chronic pansinusitis (principal); R42 Dizziness and giddiness; H53.8 Other visual disturbances; R51.9 Headache, unspecified; I69.351 Hemiplegia and hemiparesis following cerebral infarction affecting right dominant side; Z79.899 Other long term (current) drug therapy; Z28.310 Unvaccinated for COVID-19
CPT/HCPCS: 36000; 36415; 70450; 80053; 80307; 81001; 81025; 84484; 85025; 93005; 99284; J0696

== ENCOUNTER 2023-03-23 11:57 | Emergency (ER) | payer OTHER ==
--- NOTE | 2023-03-23 12:13 | ERPHSYRPT ---
- History of Present Illness Time Seen by Provider: 03/23/23 12:12 Source: patient Exam Limitations: no limitations Physician History: 32-year-old female presents emergency room with right wrist pain. Patient hit her wrist on a counter yesterday try to keep her 2-year-old from touching a curling iron. Never injured this wrist before. No bruising or swelling reported. She has pain with movement and palpation of the wrist over the scaphoid. Occurred: yesterday Method of Injury: direct blow Quality: constant, throbbing Severity of Pain-Max: moderate Severity of Pain-Current: moderate Extremities Pain Location: wrist: right Modifying Factors: Improves With: cold therapy, immobilization. Worsens With: movement Associated Symptoms: none Allergies/Adverse Reactions: codeine [From Tylenol-Codeine] Adverse Reaction (Intermediate, Verified 03/23/23 12:02) Vomiting Home Medications: Sertraline HCl [Zoloft] 1 tab PO HS 01/06/23 [History] Hx Tetanus, Diphtheria Vaccination/Date Given: Yes Hx Influenza Vaccination/Date Given: No Hx Pneumococcal Vaccination/Date Given: No Travel Risk - Vaccine Status Have you recieved a Covid-19 vaccination: No - Review of Systems Constitutional: No Symptoms Musculoskeletal: Injury, Joint Pain (right wrist), No Deformity, No Joint Swelling Skin: No Symptoms Neurological: No Symptoms All Other Systems: Reviewed and Negative - Past Medical History Pertinent Past Medical History: Yes Neurological History: Migraines, Stroke ENT History: No Pertinent History Cardiac History: No Pertinent History Respiratory History: Asthma Endocrine Medical History: No Pertinent History Musculoskeletal History: No Pertinent History GI Medical History: Gallbladder Disease History: No Pertinent History Psycho-Social History: Depression Female Reproductive Disorders: Other Other Medical History: CVA 2017, R sided weakness. Miscarriage 2017 tubal ligaton - Past Surgical History Past Surgical History: Yes Neuro Surgical History: No Pertinent History Cardiac: No Pertinent History Respiratory: No Pertinent History Gastrointestinal: Cholecystectomy Genitourinary: No Pertinent History Musculoskeletal: No Pertinent History Female Surgical History: No Pertinent History, Dilation & Curettage Other Surgical History: TONSILLECTOMY, D&C and ablasion - Social History Smoking Status: Never smoker How long have you smoked: 1 Exposure to second hand smoke: No Alcohol Use: Socially Drug Use: none Patient Lives Alone: No Significant Family History: heart disease, cancer, hypertension - Nursing Vital Signs Nursing Vital Signs: Initial Vital Signs Temperature 98.7 F 03/23/23 12:03 Pulse Rate 98 H 03/23/23 12:03 Respiratory Rate 16 03/23/23 12:03 Blood Pressure 132/74 03/23/23 12:03 O2 Sat by Pulse Oximetry 100 03/23/23 12:03 Pain Scale Pain Intensity 6 - Physical Exam General Appearance: no apparent distress Wrist Exam: normal inspection, no evidence of injury, normal ROM, bone tenderness (over anatomical snuffbox), soft tissue tenderness, No deformity, No ecchymosis, No swelling Hand Exam: normal inspection, non-tender, normal ROM, No swelling Neuro/Tendon Exam: normal sensation, normal motor functions, normal tendon functions Mental Status Exam: alert, 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, cooperative Skin Exam: normal color SpO2 Interpretation: normal O2 Delivery: Room Air - Course Nursing assessment & vital signs reviewed: Yes - Radiology Exams Right Wrist X-ray Interpretation: Interpreted by me, Other (subtle irregularity noted distal third of scaphoid on A/P view, but remaining views neg for fracture) Ordered Tests: Active Orders 24 hr Category Date Time Status Cold Application STAT Care 03/23/23 12:02 Completed WRIST (MIN 3 VIEWS) Stat Exams 03/23/23 12:21 Taken - Progress Progress Note: No obvious evidence of a scaphoid fracture noted on plain film. I will place patient in a thumb spica wrist brace and have her follow-up with Ortho clinic on Friday morning. Patient is agreeable to this plan. If no improvement would consider CT versus MRI of the wrist to further evaluate the scaphoid. Medical Desision Making - Diagnostic Testing Diagnostic test were ordered, analyzed, and reviewed by me: Yes Radiological Interpretation: Interpreted by me - Risk of complications Low Risk: Low risk of morbidity from additional dx testing or treatment - Departure Departure Disposition: Home Clinical Impression: Tenderness of anatomical snuffbox Condition: Good Critical Care Time: No Referrals: MUNA LANTIGUA MD [Primary Care Provider] - Follow up/PCP as directed ORTHO - ROCÍO NGUYEN NP [NON-STAFF PHY W/O PRIVILEGES] - [facility]-Ortho M-F [id number] Instructions: Common Wrist Injuries (DC)
[2023-03-23 13:05] VITALS: BP 128/69; PULSE 88; O2SAT 98
--- NOTE | 2023-03-23 19:44 | XRAY ---
Indication: Pain following fall. Comparison: None 3 view right wrist including additional scaphoid view obtained. No bony, articular, or soft tissue abnormalities.
== END 2023-03-23 13:05 | disposition home or self-care (01) ==
LOC: ED 11:57
DX: M25.531 Pain in right wrist (principal); W22.09XA Striking against other stationary object, initial encounter; Z79.899 Other long term (current) drug therapy; Z28.310 Unvaccinated for COVID-19
CPT/HCPCS: 73110; 99282

== ENCOUNTER 2023-05-01 17:42 | Observation (INO) | payer OTHER ==
--- NOTE | 2023-05-01 17:54 | ERPHSYRPT ---
- History of Present Illness Time Seen by Provider: 05/01/23 17:54 Source: patient Exam Limitations: no limitations Physician History: This is a 32-year-old slightly overweight white female patient of Dr. Hartman who stated that she noticed some facial drooping at approximately 4 PM today. Patient has had a CVA in the year 2016. At that time it was infarction in her left occipital lobe which gave her the symptom of changes in her right eye vision. In December 2022 she was having some sinus pressure and dizziness. A CT scan at that time showed a stable, remote infarction of the left occipital lobe and no other acute intracranial abnormalities. Patient arrived to the emergency department approximately 6 PM and we sent her to the CT scanner. Today's CT of the head without contrast report was interpreted by the radiologist and I read the impression. There is no change from the CT scan that was performed on 01/06/2023. Patient has no visual changes today. She ambulated on her own without any difficulty to the emergency room. Patient did start prednisone to day in the morning. Patient denies chest pain. She denies shortness of breath. Timing/Duration: today Severity: mild Character of Deficits: other (Patient felt that there was mild facial droop present) Deficits: no difficulties Baseline/Normal Cognition: alert 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 Current Cognition: alert 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 Baseline Gait: walks w/o assistance Associated Symptoms: denies symptoms Allergies/Adverse Reactions: codeine [From Tylenol-Codeine] Adverse Reaction (Intermediate, Verified 05/01/23 18:04) Vomiting Home Medications: Sertraline HCl [Zoloft] 1 tab PO HS 01/06/23 [History] Hx Tetanus, Diphtheria Vaccination/Date Given: Yes Hx Influenza Vaccination/Date Given: No Hx Pneumococcal Vaccination/Date Given: No Travel Risk - International Travel Have you traveled outside of the country in past 3 weeks: No - Coronavirus Screening Are you exhibiting any of the following symptoms?: No Close contact with a COVID-19 positive Pt in past 14-21 Days: No - Vaccine Status Have you recieved a Covid-19 vaccination: No - Review of Systems Constitutional: No Symptoms Eyes: No Symptoms Ears, Nose, & Throat: No Symptoms Respiratory: No Symptoms Cardiac: No Symptoms Abdominal/Gastrointestinal: No Symptoms Genitourinary Symptoms: No Symptoms Musculoskeletal: No Symptoms Skin: No Symptoms Neurological: Other (Mild facial droop) Psychological: No Symptoms Endocrine: No Symptoms Hematologic/Lymphatic: No Symptoms Immunological/Allergic: No Symptoms All Other Systems: Reviewed and Negative - Past Medical History Pertinent Past Medical History: Yes Neurological History: Migraines, Stroke ENT History: No Pertinent History Cardiac History: No Pertinent History Respiratory History: Asthma Endocrine Medical History: No Pertinent History Musculoskeletal History: No Pertinent History GI Medical History: Gallbladder Disease History: No Pertinent History Psycho-Social History: Depression Female Reproductive Disorders: Other Other Medical History: CVA 2017, R sided weakness. Miscarriage 2017 tubal ligaton - Past Surgical History Past Surgical History: Yes Neuro Surgical History: No Pertinent History Cardiac: No Pertinent History Respiratory: No Pertinent History Gastrointestinal: Cholecystectomy Genitourinary: No Pertinent History Musculoskeletal: No Pertinent History Female Surgical History: No Pertinent History, Dilation & Curettage Other Surgical History: TONSILLECTOMY, D&C and ablasion - Social History Smoking Status: Never smoker How long have you smoked: 1 Exposure to second hand smoke: No Alcohol Use: Socially Drug Use: none Patient Lives Alone: No Significant Family History: heart disease, cancer, hypertension - Nursing Vital Signs Nursing Vital Signs: Initial Vital Signs Temperature 98.6 F 05/01/23 17:52 Pulse Rate 111 H 05/01/23 17:52 Respiratory Rate 16 05/01/23 17:52 Blood Pressure 170/110 05/01/23 17:52 O2 Sat by Pulse Oximetry 100 05/01/23 17:52 Pain Scale Pain Intensity 0 - [place] Coma Scale Best Eye Response ([place]): (4) open spontaneously Best Verbal Response ([place]): (5) oriented Best Motor Response ([place]): (6) obeys commands [place] Total: 15 - Physical Exam General Appearance: no apparent distress, alert, anxiety Eye Exam: bilateral eye: normal inspection, PERRL, EOMI Ears, Nose, Throat Exam: normal ENT inspection, moist mucous membranes Neck Exam: normal inspection, non-tender, supple, full range of motion Respiratory: normal breath sounds, lungs clear, airway intact, No chest tenderness, No respiratory distress Cardiovascular: regular rate/rhythm, normal heart sounds, normal peripheral pulses Gastrointestinal: soft, normal bowel sounds, No tenderness Pelvic Exam: not done Rectal Exam: not done Back Exam: normal inspection, normal range of motion, No CVA tenderness, No vertebral tenderness Extremity Exam: normal inspection, normal range of motion, pelvis stable Mental Status: alert, 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, 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 Exam: normal hearing, normal speech, PERRL, tongue midline Coordination/Gait: normal finger to nose, normal gait, normal cerebellar function Motor/Sensory: no motor deficit, no sensory deficit, no pronator drift Skin Exam: normal color, warm, dry SpO2 Interpretation: normal O2 Delivery: Room Air - Course Nursing assessment & vital signs reviewed: Yes Ordered Tests: Active Orders 24 hr Category Date Time Status Electrical Project Manager STAT Care 05/01/23 18:18 Active EKG-ER Only STAT Care 05/01/23 18:17 Active IV Insertion STAT Care 05/01/23 18:17 Active NPO (ED) STAT Care 05/01/23 18:17 Active Pulse Oximetry (ED) STAT Care 05/01/23 18:17 Active HEAD WITHOUT CONTRAST [CT] Stat Exams 05/01/23 17:53 Taken CBC W DIFF Stat Lab 05/01/23 18:47 Completed CMP Stat Lab 05/01/23 18:47 Completed HCG QUALITATIVE, URINE Stat Lab 05/01/23 18:50 Completed UA W/RFX UR CULTURE Stat Lab 05/01/23 18:50 Completed Transfer Order Routine Transfer 05/01/23 Ordered Lab/Rad Data: Laboratory Result Diagrams 05/01/23 18:47 05/01/23 18:47 Laboratory Results 05/01/23 05/01/23 05/01/23 Range/Units 18:50 18:50 18:47 WBC (4.0-10.5) x10^3/uL RBC (4.1-5.4) x10^6/uL Hgb (12.0-16.0) g/dL Hct (35-47) % MCV (78-100) fL MCH (26-32) pg MCHC (32-36) g/dL RDW (11.5-14.0) % Plt Count (150-450) x10^3/uL MPV (7.5-11.0) fL Gran % (36.0-66.0) % Immature Gran % (Auto) (0.00-0.4) % Nucleat RBC Rel Count (0.00-0.1) % Eos # (Auto) (0-0.5) x10^3/uL Immature Gran # (Auto) (0.00-0.03) x10^3u/L Absolute Lymphs (auto) (1.0-4.6) x10^3/uL Absolute Monos (auto) (0.0-1.3) x10^3/uL Absolute Nucleated RBC (0.00-0.01) x10^3u/L Lymphocytes % (24.0-44.0) % Monocytes % (0.0-12.0) % Eosinophils % (0.00-5.0) % Basophils % (0.0-0.4) % Absolute Granulocytes (1.4-6.9) x10^3/uL Basophils # (0-0.4) x10^3/uL Sodium 139 (137-145) mmol/L Potassium 4.0 (3.5-5.1) mmol/L Chloride 103 (98-107) mmol/L Carbon Dioxide 29 (22-30) mmol/L Anion Gap 11.5 (5-15) MEQ/L BUN 11 (7-17) mg/dL Creatinine 0.62 (0.52-1.04) mg/dL Estimated GFR > 60.0 ML/MIN Glucose 90 (74-106) mg/dL Calcium 9.0 (8.4-10.2) mg/dL Total Bilirubin 0.40 (0.2-1.3) mg/dL AST 22 (14-36) U/L ALT 15 (0-35) U/L Alkaline Phosphatase 71 (38-126) U/L Serum Total Protein 8.0 (6.3-8.2) g/dL Albumin 4.4 (3.5-5.0) g/dL Urine Color Yellow (Yellow) Urine Appearance Cloudy A (Clear) Urine pH 7.0 (4.6-8.0) Ur Specific [place] 1.015 (1.005-1.030) Urine Protein Negative (Negative) Urine Glucose (UA) Negative (Negative) mg/dL Urine Ketones Negative (Negative) Urine Blood NHT (Negative) Urine Nitrite Negative (Negative) Urine Bilirubin Negative (Negative) Urine Urobilinogen 0.2 (0.2) mg/dL Ur Leukocyte Esterase Negative (Negative) U Hyaline Cast (Auto) NONE SEEN (0-2) /LPF Urine Microscopic RBC 0-2 (0-5) /HPF Urine Microscopic WBC 0-2 (0-5) /HPF Ur Epithelial Cells Rare (None Seen) /HPF Urine Bacteria None Seen (None Seen) /HPF Urine Culture Reflexed NO (NO) Urine HCG, Qual NEGATIVE (NEGATIVE) 05/01/23 Range/Units 18:47 WBC 10.7 H (4.0-10.5) x10^3/uL RBC 5.05 (4.1-5.4) x10^6/uL Hgb 14.4 (12.0-16.0) g/dL Hct 42.5 (35-47) % MCV 84.2 (78-100) fL MCH 28.5 (26-32) pg MCHC 33.9 (32-36) g/dL RDW 13.2 (11.5-14.0) % Plt Count 296 (150-450) x10^3/uL MPV 11.7 H (7.5-11.0) fL Gran % 72.9 H (36.0-66.0) % Immature Gran % (Auto) 0.2 (0.00-0.4) % Nucleat RBC Rel Count 0.0 (0.00-0.1) % Eos # (Auto) 0.03 (0-0.5) x10^3/uL Immature Gran # (Auto) 0.02 (0.00-0.03) x10^3u/L Absolute Lymphs (auto) 2.25 (1.0-4.6) x10^3/uL Absolute Monos (auto) 0.57 (0.0-1.3) x10^3/uL Absolute Nucleated RBC 0.00 (0.00-0.01) x10^3u/L Lymphocytes % 20.9 L (24.0-44.0) % Monocytes % 5.3 (0.0-12.0) % Eosinophils % 0.3 (0.00-5.0) % Basophils % 0.4 (0.0-0.4) % Absolute Granulocytes 7.83 H (1.4-6.9) x10^3/uL Basophils # 0.04 (0-0.4) x10^3/uL Sodium (137-145) mmol/L Potassium (3.5-5.1) mmol/L Chloride (98-107) mmol/L Carbon Dioxide (22-30) mmol/L Anion Gap (5-15) MEQ/L BUN (7-17) mg/dL Creatinine (0.52-1.04) mg/dL Estimated GFR ML/MIN Glucose (74-106) mg/dL Calcium (8.4-10.2) mg/dL Total Bilirubin (0.2-1.3) mg/dL AST (14-36) U/L ALT (0-35) U/L Alkaline Phosphatase (38-126) U/L Serum Total Protein (6.3-8.2) g/dL Albumin (3.5-5.0) g/dL Urine Color (Yellow) Urine Appearance (Clear) Urine pH (4.6-8.0) Ur Specific [place] (1.005-1.030) Urine Protein (Negative) Urine Glucose (UA) (Negative) mg/dL Urine Ketones (Negative) Urine Blood (Negative) Urine Nitrite (Negative) Urine Bilirubin (Negative) Urine Urobilinogen (0.2) mg/dL Ur Leukocyte Esterase (Negative) U Hyaline Cast (Auto) (0-2) /LPF Urine Microscopic RBC (0-5) /HPF Urine Microscopic WBC (0-5) /HPF Ur Epithelial Cells (None Seen) /HPF Urine Bacteria (None Seen) /HPF Urine Culture Reflexed (NO) Urine HCG, Qual (NEGATIVE) - Progress Progress: improved, re-examined Progress Note: 05/01/23 21:14 CT scan of the head was interpreted by the radiologist and I reviewed the impression. There is a old, remote infarct left occipital lobe. No acute intracranial abnormalities. This patient's medical issue is 1 of high complexity. The level of complexity and the workup performed is based on review of the patient's past medical history, review of the medication list, review of the patient's drug allergy list, history of present illness and physical findings on examination. Neurologically, the patient seems to be fully intact. However secondary to her history and her concerns of findings at home 2 hours prior to her arrival, we did perform a stat CT scan with the above findings. We also placed an intraveno us line, performed a CBC, CMP, urinalysis and obtained a teleneurology consultation. I spoke with the teleneurologist, Dr. Rooney. She recommended admission into the hospital with an MRI of the brain, MRA of the brain and neck as well as echocardiogram. I also spoke with telehospitalist Dr. Kelly. I reviewed the patient history, physical finds on examination and the results of the workup. In addition I discussed the teleneurologist recommendations. He agrees that we will place the patient in the hospital and perform CVA workup. Counseled pt/family regarding: lab results, diagnosis, need for follow-up, rad results Medical Desision Making - Independent Historian Additional History obtained from: Mother - Diagnostic Testing Diagnostic test were ordered, analyzed, and reviewed by me: Yes Radiological Interpretation: Reviewed by me, Teleradiologist Report - Risk of complications The pt has a high risk of morbidity or mortality based on: Decision regarding hospitilization or escalation of hosp level of care - Departure Departure Disposition: In-patient Admission Clinical Impression: Facial droop Condition: Stable Critical Care Time: No Referrals: MUNA HARTMAN MD [Primary Care Provider] - Follow up/PCP as directed
[2023-05-01 18:50] LABS: Absolute Neutrophil Ct (ANC) 7.83 x10^3/uL (1.4-6.9); BASOPHIL % 0.4 % (0.0-0.4); Basophil (Absolute #) 0.04 x10^3/uL (0-0.4); Eosinophil % 0.3 % (0.00-5.0); Eosinophil (Absolute #) 0.03 x10^3/uL (0-0.5); Hematocrit 42.5 % (35-47); Hemoglobin 14.4 g/dL (12.0-16.0); IMMATURE GRAN # 0.02 x10^3u/L (0.00-0.03); IMMATURE GRAN % 0.2 % (0.00-0.4); Lymphocyte (Absolute #) 2.25 x10^3/uL (1.0-4.6); Lymphocytes % 20.9 % (24.0-44.0); Mean Cell Volume 84.2 fL (78-100); Mean Corpuscular Hemoglobin 28.5 pg (26-32); Mean Corpuscular Hgb Concent. 33.9 g/dL (32-36); Mean Platelet Volume 11.7 fL (7.5-11.0); Monocyte (Absolute #) 0.57 x10^3/uL (0.0-1.3); Monocytes % 5.3 % (0.0-12.0); Neutrophil % 72.9 % (36.0-66.0); Platelet Count 296 x10^3/uL (150-450); Red Blood Count 5.05 x10^6/uL (4.1-5.4); Red Cell Distribution Width 13.2 % (11.5-14.0); White Blood Count 10.7 x10^3/uL (4.0-10.5)
[2023-05-01 19:28] LABS: HCG URINE TEST NEGATIVE (NEGATIVE)
[2023-05-01 19:32] LABS: Appearance Cloudy (Clear); Bacteria None Seen /HPF (None Seen); Bilirubin Negative (Negative); Blood NHT (Negative); Epithelial Cells Rare /HPF (None Seen); Glucose, Urine Negative (Negative); Hyaline Casts NONE SEEN /LPF (0-2); Ketones Negative (Negative); Leukocyte Esterase Negative (Negative); Nitrite Negative (Negative); Protein,Urine Dip Negative (Negative); RBC 0-2 /HPF (0-5); Specific Gravity 1.015 (1.005-1.030); Urobilinogen 0.2 mg/dL (0.2); WBC 0-2 /HPF (0-5)
[2023-05-01 19:34] LABS: ADD URINE CULTURE? NO (NO)
[2023-05-01 19:35] LABS: ALBUMIN 4.4 g/dL (3.5-5.0); ALKALINE PHOSPHATASE 71 U/L (38-126); ANION GAP 11.5 MEQ/L (5-15); BLOOD UREA NITROGEN 11 mg/dL (7-17); CHLORIDE 103 mmol/L (98-107); Carbon Dioxide 29 mmol/L (22-30); Creatinine 1 0.62 mg/dL (0.52-1.04); EST GLOMERULAR FILTRATION RATE > 60.0 ML/MIN; Glucose 90 mg/dL (74-106); SGOT/AST 22 U/L (14-36); SGPT/ALT 15 U/L (0-35); SODIUM 139 mmol/L (137-145)
[2023-05-01] MEDS ORDERED: Sodium Chloride 0.9% 1000 ML 1,000 ML IV SCH (22:10)
[2023-05-01] MEDS ORDERED: Zofran 4 MG/2 ML VIAL IV PRN (22:10)
[2023-05-01] MEDS ORDERED: TYLENOL 325 MG PO PRN (22:30)
--- NOTE | 2023-05-01 22:36 | PCM.HP ---
History of Present Illness - Chief Complaint Chief Complaint: facial droop History of Present Illness: is a 32 year old female with hx of past occipital infarct back in 2017 with some visual deficit, and depression on Zoloft presented with c/o of left facial drooping. She noticed it today. No pain, headache, vision change, speech problem, imbalance, falls, nausea, vomiting, fever, chills. She has had a sore throat and was given medrol dose michael and she started it yesterday. In ER, CT head negative and blood work and urine normal. WBC 10.7. BP was 170/110, but better on subsequent checks I am seeing her via telemedicine, and she is resting comfortably, with no distress. She is able to provide all her historical data with no issue She is not on asa or any other meds because she had a miscarriage after her CVA in 2017 and she had excessive bleeding. So afterward, she was taken off of aspirin and since has not been on any anti-plts. She recently had a D&C and ablation for her abnormal uterine bleeding. - Review of Systems Constitutional: No Symptoms Eyes: No Symptoms Ears, Nose, & Throat: Throat Pain (Described as a "scratchy throat".) Respiratory: No Symptoms Cardiac: No Symptoms Abdominal/Gastrointestinal: No Symptoms Genitourinary Symptoms: No Symptoms Musculoskeletal: No Symptoms Skin: No Symptoms Neurological: Other (Facial drooping) Psychological: No Symptoms Endocrine: No Symptoms Hematologic/Lymphatic: No Symptoms Medications & Allergies Home Medications: Home Medication List Sertraline HCl [Zoloft] 1 tab PO HS 01/06/23 [History Confirmed 05/01/23] Allergies/Adverse Reactions: Allergies Allergy/AdvReac Type Severity Reaction Status Date / Time codeine AdvReac Intermediate Vomiting Verified 05/01/23 18:04 [From Tylenol-Codeine] - Past Medical History Past Medical History: Yes Neurological History: Migraines, Stroke ENT History: No Pertinent History Cardiac History: No Pertinent History Respiratory History: Asthma Endocrine Medical History: No Pertinent History Musculoskelatal History: No Pertinent History GI Medical History: Gallbladder Disease History: No Pertinent History Pyscho-Social History: Depression Reproductive Disorders: Abnormal Uterine Bleeding, Other (BL tubal ligation, abd hysterectomy) Comment: CVA 2017, R sided weakness. Miscarriage 2017 tubal ligaton - Female History Hx Last Menstrual Period: hysterectomy november 2022 Are you now?: No - Past Surgical History Past Surgical History: Yes Neuro Surgical History: No Pertinent History Cardiac History: No Pertinent History Respiratory Surgery: No Pertinent History GI Surgical History: Cholecystectomy Genitourinary Surgical Hx: No Pertinent History Musculskeletal Surgical Hx: No Pertinent History Female Surgical History: No Pertinent History, Dilation & Curettage Other Surgical History: TONSILLECTOMY, D&C and ablasion - Social History Smoking Status: Never smoker How long have you smoked: 1 Exposure to second hand smoke: No Alcohol: None Drug Use: none Significant Family History: heart disease, cancer, hypertension - Physical Exam Vital Signs: Vital Signs - 24 hr Temp Pulse Resp BP BP Pulse Ox 05/01/23 22:00 104 H 20 151/97 97 05/01/23 21:30 95 H 19 138/96 97 05/01/23 21:00 99 H 20 145/91 98 05/01/23 20:00 106 H 19 157/81 99 05/01/23 19:30 114 H 17 135/85 99 05/01/23 19:03 97 H 23 134/88 99 05/01/23 19:00 109 H 23 140/84 98 05/01/23 18:50 92 H 17 140/107 96 05/01/23 18:20 100 05/01/23 17:52 98.6 F 111 H 16 170/110 100 General Appearance: no apparent distress Neurologic Exam: alert, 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, cooperative, normal mood/affect Eye Exam: PERRL/EOMI, eyes nml inspection Ears, Nose, Throat Exam: normal ENT inspection Neck Exam: normal inspection, supple Respiratory Exam: normal breath sounds Cardiovascular Exam: regular rate/rhythm, normal heart sounds Gastrointestinal/Abdomen Exam: soft, normal bowel sounds Pelvic Exam: deferred Rectal Exam: deferred Back Exam: normal inspection Extremity Exam: normal inspection Skin Exam: normal color Results - Labs Lab/Micro Results: Lab Results-Last 24 Hours 05/01/23 05/01/23 05/01/23 Range/Units 18:47 18:47 18:50 WBC 10.7 H (4.0-10.5) x10^3/uL RBC 5.05 (4.1-5.4) x10^6/uL Hgb 14.4 (12.0-16.0) g/dL Hct 42.5 (35-47) % MCV 84.2 (78-100) fL MCH 28.5 (26-32) pg MCHC 33.9 (32-36) g/dL RDW 13.2 (11.5-14.0) % Plt Count 296 (150-450) x10^3/uL MPV 11.7 H (7.5-11.0) fL Gran % 72.9 H (36.0-66.0) % Immature Gran % (Auto) 0.2 (0.00-0.4) % Nucleat RBC Rel Count 0.0 (0.00-0.1) % Eos # (Auto) 0.03 (0-0.5) x10^3/uL Immature Gran # (Auto) 0.02 (0.00-0.03) x10^3u/L Absolute Lymphs (auto) 2.25 (1.0-4.6) x10^3/uL Absolute Monos (auto) 0.57 (0.0-1.3) x10^3/uL Absolute Nucleated RBC 0.00 (0.00-0.01) x10^3u/L Lymphocytes % 20.9 L (24.0-44.0) % Monocytes % 5.3 (0.0-12.0) % Eosinophils % 0.3 (0.00-5.0) % Basophils % 0.4 (0.0-0.4) % Absolute Granulocytes 7.83 H (1.4-6.9) x10^3/uL Basophils # 0.04 (0-0.4) x10^3/uL Sodium 139 (137-145) mmol/L Potassium 4.0 (3.5-5.1) mmol/L Chloride 103 (98-107) mmol/L Carbon Dioxide 29 (22-30) mmol/L Anion Gap 11.5 (5-15) MEQ/L BUN 11 (7-17) mg/dL Creatinine 0.62 (0.52-1.04) mg/dL Estimated GFR > 60.0 ML/MIN Glucose 90 (74-106) mg/dL Calcium 9.0 (8.4-10.2) mg/dL Total Bilirubin 0.40 (0.2-1.3) mg/dL AST 22 (14-36) U/L ALT 15 (0-35) U/L Alkaline Phosphatase 71 (38-126) U/L Serum Total Protein 8.0 (6.3-8.2) g/dL Albumin 4.4 (3.5-5.0) g/dL Urine Color Yellow (Yellow) Urine Appearance Cloudy A (Clear) Urine pH 7.0 (4.6-8.0) Ur Specific [place] 1.015 (1.005-1.030) Urine Protein Negative (Negative) Urine Glucose (UA) Negative (Negative) mg/dL Urine Ketones Negative (Negative) Urine Blood NHT (Negative) Urine Nitrite Negative (Negative) Urine Bilirubin Negative (Negative) Urine Urobilinogen 0.2 (0.2) mg/dL Ur Leukocyte Esterase Negative (Negative) U Hyaline Cast (Auto) NONE SEEN (0-2) /LPF Urine Microscopic RBC 0-2 (0-5) /HPF Urine Microscopic WBC 0-2 (0-5) /HPF Ur Epithelial Cells Rare (None Seen) /HPF Urine Bacteria None Seen (None Seen) /HPF Urine Culture Reflexed NO (NO) Urine HCG, Qual (NEGATIVE) 05/01/23 Range/Units 18:50 WBC (4.0-10.5) x10^3/uL RBC (4.1-5.4) x10^6/uL Hgb (12.0-16.0) g/dL Hct (35-47) % MCV (78-100) fL MCH (26-32) pg MCHC (32-36) g/dL RDW (11.5-14.0) % Plt Count (150-450) x10^3/uL MPV (7.5-11.0) fL Gran % (36.0-66.0) % Immature Gran % (Auto) (0.00-0.4) % Nucleat RBC Rel Count (0.00-0.1) % Eos # (Auto) (0-0.5) x10^3/uL Immature Gran # (Auto) (0.00-0.03) x10^3u/L Absolute Lymphs (auto) (1.0-4.6) x10^3/uL Absolute Monos (auto) (0.0-1.3) x10^3/uL Absolute Nucleated RBC (0.00-0.01) x10^3u/L Lymphocytes % (24.0-44.0) % Monocytes % (0.0-12.0) % Eosinophils % (0.00-5.0) % Basophils % (0.0-0.4) % Absolute Granulocytes (1.4-6.9) x10^3/uL Basophils # (0-0.4) x10^3/uL Sodium (137-145) mmol/L Potassium (3.5-5.1) mmol/L Chloride (98-107) mmol/L Carbon Dioxide (22-30) mmol/L Anion Gap (5-15) MEQ/L BUN (7-17) mg/dL Creatinine (0.52-1.04) mg/dL Estimated GFR ML/MIN Glucose (74-106) mg/dL Calcium (8.4-10.2) mg/dL Total Bilirubin (0.2-1.3) mg/dL AST (14-36) U/L ALT (0-35) U/L Alkaline Phosphatase (38-126) U/L Serum Total Protein (6.3-8.2) g/dL Albumin (3.5-5.0) g/dL Urine Color (Yellow) Urine Appearance (Clear) Urine pH (4.6-8.0) Ur Specific [place] (1.005-1.030) Urine Protein (Negative) Urine Glucose (UA) (Negative) mg/dL Urine Ketones (Negative) Urine Blood (Negative) Urine Nitrite (Negative) Urine Bilirubin (Negative) Urine Urobilinogen (0.2) mg/dL Ur Leukocyte Esterase (Negative) U Hyaline Cast (Auto) (0-2) /LPF Urine Microscopic RBC (0-5) /HPF Urine Microscopic WBC (0-5) /HPF Ur Epithelial Cells (None Seen) /HPF Urine Bacteria (None Seen) /HPF Urine Culture Reflexed (NO) Urine HCG, Qual NEGATIVE (NEGATIVE) - Radiology Impressions Radiology Exams & Impressions: Radiology Procedures Category Date Time Status ECHO W/2D AND DOPPLER [US] Stat Exams 05/02/23 08:00 Ordered HEAD WITHOUT CONTRAST [CT] Stat Exams 05/01/23 17:53 Taken MRA BRAIN WITH CONTRAST [MRI] Stat Exams 05/02/23 08:30 Ordered MRA NECK WITH CONTRAST [MRI] Stat Exams 05/02/23 09:00 Ordered MRI BRAIN W/O CONTRAST [MRI] Stat Exams 05/02/23 09:30 Ordered Assessment/Plan (1) Facial droop Current Visit: Yes Status: Acute Assessment & Plan: With her previous CVA history, tele-neuro recommended a complete work-up: So MRI, MTRA and Echo tomorrow. I will add fasting lipids, TSH, A1C. She should consider statin, aspirin as treatments for CVA risk. She hesitate as she had abnormal uterine bleeding, but she now has hysterectomy, this concern becomes less an issue Code(s): R29.810 - FACIAL WEAKNESS (2) History of CVA (cerebrovascular accident) Current Visit: Yes Status: Acute Assessment & Plan: Left occipital infarct - no major residual sequelae. Risk factors management as discussed above. She does not smoke nor drink alcohol. Code(s): Z86.73 - PRSNL HX OF TIA (TIA), AND CEREB INFRC W/O RESID DEFICITS (3) Leukocytosis Current Visit: Yes Status: Acute Assessment & Plan: WBC mildly elevated at 10.7 - she started a medrol dose micheal yesterday - so this may be due to that. UA normal. No obvious sign of infection. Will monitor Code(s): D72.829 - ELEVATED WHITE BLOOD CELL COUNT, UNSPECIFIED (4) Depression Current Visit: Yes Status: Acute Assessment & Plan: We can resume zoloft Code(s): F32.A - DEPRESSION, UNSPECIFIED Telemedicine Encounter - Telemedicine Encounter Telemedicine Encounter: The entirety of this encounter was performed via Telemedicine" Pt gave me verbal consent to have this telemedicine visit
[2023-05-01] MEDS ORDERED: ZOLOFT 50 MG TABLET ONE (23:13)
[2023-05-01] MEDS ORDERED: ZOLOFT 50 MG TABLET PO SCH (23:18)
[2023-05-02 04:56] LABS: Absolute Neutrophil Ct (ANC) 4.52 x10^3/uL (1.4-6.9); BASOPHIL % 0.5 % (0.0-0.4); Basophil (Absolute #) 0.05 x10^3/uL (0-0.4); Eosinophil (Absolute #) 0.18 x10^3/uL (0-0.5); Hematocrit 40.6 % (35-47); Hemoglobin 13.7 g/dL (12.0-16.0); IMMATURE GRAN # 0.01 x10^3u/L (0.00-0.03); IMMATURE GRAN % 0.1 % (0.00-0.4); Lymphocyte (Absolute #) 3.81 x10^3/uL (1.0-4.6); Lymphocytes % 41.6 % (24.0-44.0); Mean Cell Volume 84.1 fL (78-100); Mean Corpuscular Hemoglobin 28.4 pg (26-32); Mean Corpuscular Hgb Concent. 33.7 g/dL (32-36); Mean Platelet Volume 11.4 fL (7.5-11.0); Monocyte (Absolute #) 0.59 x10^3/uL (0.0-1.3); Monocytes % 6.4 % (0.0-12.0); Neutrophil % 49.4 % (36.0-66.0); Platelet Count 267 x10^3/uL (150-450); Red Blood Count 4.83 x10^6/uL (4.1-5.4); Red Cell Distribution Width 13.4 % (11.5-14.0); White Blood Count 9.2 x10^3/uL (4.0-10.5)
[2023-05-02 05:28] LABS: ALKALINE PHOSPHATASE 65 U/L (38-126); ANION GAP 13.3 MEQ/L (5-15); BLOOD UREA NITROGEN 12 mg/dL (7-17); CHLORIDE 106 mmol/L (98-107); Calcium 8.5 mg/dL (8.4-10.2); Carbon Dioxide 23 mmol/L (22-30); EST GLOMERULAR FILTRATION RATE > 60.0 ML/MIN; Glucose 94 mg/dL (74-106); Potassium 3.6 mmol/L (3.5-5.1); SGOT/AST 19 U/L (14-36); SGPT/ALT 13 U/L (0-35); SODIUM 139 mmol/L (137-145); Total Protein 7.1 g/dL (6.3-8.2)
[2023-05-02 05:36] LABS: Risk Ratio 4.7
[2023-05-02 07:19] VITALS: RESP 16
--- NOTE | 2023-05-02 08:33 | XRAY ---
Indication: Facial droop. History stroke. Multiple contiguous axial images obtained through the head without contrast. Comparison: January 06, 2023 Stable small old infarct medial left occipital lobe. No acute intracranial hemorrhage, abnormal extra-axial fluid collection, or mass effect. Fourth ventricle is midline without hydrocephalus. Vora-white matter differentiation preserved. Bony calvarium intact. Visualized paranasal sinuses and mastoid air cells are clear. Impression: Stable remote infarct left occipital lobe. No new/acute intracranial abnormalities.
[2023-05-02] MEDS ORDERED: ENOXAPARIN SODIUM SQ SCH (10:00)
[2023-05-02 11:48] VITALS: BP 129/88; PULSE 77; TEMP 98.4; O2SAT 98
--- NOTE | 2023-05-02 13:18 | XRAY ---
Indication: Facial droop and numbness. Sagittal, coronal, and axial MRI brain performed without contrast using T1, T2, FLAIR, diffusion, and ADC sequences. Comparison: None Ventriculosulcal pattern appears symmetric. Medial occipital lobe demonstrates small focus infarct with minimal gliosis. Diffusion images are negative for restricted signal. No acute intracranial hemorrhage, abnormal extra axial fluid collection, or mass effect. Fourth ventricle is midline without hydrocephalus. 7/8 cranial nerve complex bilaterally symmetric. Normal flow-void signal within the major intracerebral circulation. Normal appearing craniocervical junction and sella turcica. Impression: Small remote infarct left occipital lobe. Remaining MRI brain without contrast exam is negative.
--- NOTE | 2023-05-02 13:24 | XRAY ---
Indication: Facial droop and numbness. Conventional contrast enhanced MRA neck performed using 19 cc Dotarem contrast. Comparison: None Proximal left internal carotid artery demonstrates mild eccentric plaquing producing 40-50% stenosis. Remaining visualized left/right common carotid, left/right carotid bulb, left external, and right internal/external carotid arteries are normal in MRA appearance. Vertebral arteries demonstrates occluded right vertebral artery with tiny reconstitution distally at the level of the foramen magnum. Visualized left vertebral artery is normal in MRA appearance. Impression: 1. Mild eccentric plaquing proximal left internal carotid artery producing 40-50% stenosis. 2. Occluded right vertebral artery. 3. Remaining MRA neck with contrast exam is negative.
--- NOTE | 2023-05-02 13:26 | XRAY ---
Indication: Facial droop and numbness. Multi-slab 3-D [id number] MRA [place] performed. Comparison: None Distal internal carotid arteries are normal in course and caliber without critical stenosis or obstruction. Normal carotid terminus with normal branching A1 and M1 segments bilaterally. Posterior circulation demonstrates dominant distal left vertebral artery. Normal MRA appearance to the basilar, left/right posterior cerebral, left/right superior cerebellar, left/right anterior inferior cerebellar, and left/right posterior inferior cerebellar arteries. Impression: Negative MRA [place].
--- NOTE | 2023-05-02 15:18 | PCM.DS ---
Discharge Summary Date of Admission: 05/01/23 21:52 Date of Discharge: 05/02/23 Admitting Physician: MAGY RICHARDS DO Primary Care Provider: MUNA LANTIGUA Allergies Allergies codeine [From Tylenol-Codeine] Adverse Reaction (Intermediate, Verified 05/01/23 18:04) Vomiting Hospital Summary - Hospital Course Hospital Course: Mrs. Arroyo is a 32-year-old female patient of Dr. Lantigua who presented 05/01/23 to the ER with facial drooping and tongue/mouth numbness. Patient has a history of CVA in the year 2016 which was an infarction in her left occipital lobe resulting in changes in her right eye vision. During hospital course, CT of the head without contrast showed no change from the CT scan that was performed on 01/06/2023. Patient was admitted for further evaluation. Neurology was consulted and further imaging of MRI of the brain as well as MRA of the brain and neck were ordered showing small remote infarct in the left occipital lobe, and the left internal carotid artery with 40-50% stenosis, and occluded right vertebral artery. Patient has had no complaints of visual changes during this stay and has ambulated on her own without any difficulty. Patient did start prednisone on the day of arrival outpatient which she obtained for a sore throat. She is not on asa or statin therapy due to a miscarriage following her CVA in 2016 in which she had excessive bleeding. She recently had a D&C and ablation for her abnormal uterine bleeding as well as a partial hysterectomy. Patient is now agreeable to be discharged on ASA/Statin therapy with close follow up with her PCP/neurologist. Last visit she had with neurology was in 2020. (1) Facial droop Current Visit: Yes Status: Acute Assessment & Plan: With her previous CVA history, tele-neuro recommended a complete work-up: So MRI, MTRA and Echo tomorrow. I will add fasting lipids, TSH, A1C. She should consider statin, aspirin as treatments for CVA risk. She hesitate as she had abnormal uterine bleeding, but she now has hysterectomy, this concern becomes less an issue Code(s): R29.810 - FACIAL WEAKNESS (2) History of CVA (cerebrovascular accident) Current Visit: Yes Status: Acute Assessment & Plan: Left occipital infarct - no major residual sequelae. Risk factors management as discussed above. She does not smoke nor drink alcohol. Code(s): Z86.73 - PRSNL HX OF TIA (TIA), AND CEREB INFRC W/O RESID DEFICITS (3) Leukocytosis Current Visit: Yes Status: Acute Assessment & Plan: WBC mildly elevated at 10.7 - she started a medrol dose michael yesterday - so this may be due to that. UA normal. No obvious sign of infection. Will monitor Code(s): D72.829 - ELEVATED WHITE BLOOD CELL COUNT, UNSPECIFIED (4) Depression Current Visit: Yes Status: Acute Assessment & Plan: We can resume zoloft Code(s): F32.A - DEPRESSION, UNSPECIFIED New Meds: Atorvastatin/ASA Follow up: PCP/Neurology Dispo: Home I have spent > 45 minutes planning and coordinating safe discharge of this patient. - Vitals & Intake/Output Vital Signs: Vital Signs Temperature 98.4 F 05/02/23 11:47 Pulse Rate 77 05/02/23 11:47 Respiratory Rate 16 05/02/23 11:47 Blood Pressure 129/88 05/02/23 11:47 O2 Sat by Pulse Oximetry 98 05/02/23 11:47 Intake & Output: Intake & Output 04/30/23 05/01/23 05/02/23 05/03/23 11:59 11:59 11:59 11:59 Intake Total 800 480 Balance 800 480 Weight 92.8 kg - Lab Result Diagrams: 05/02/23 04:43 05/02/23 04:43 Lab Results-Last 24 Hrs: Lab Results-Last 24 Hours 05/01/23 05/01/23 05/01/23 Range/Units 18:47 18:47 18:50 WBC 10.7 H (4.0-10.5) x10^3/uL RBC 5.05 (4.1-5.4) x10^6/uL Hgb 14.4 (12.0-16.0) g/dL Hct 42.5 (35-47) % MCV 84.2 (78-100) fL MCH 28.5 (26-32) pg MCHC 33.9 (32-36) g/dL RDW 13.2 (11.5-14.0) % Plt Count 296 (150-450) x10^3/uL MPV 11.7 H (7.5-11.0) fL Gran % 72.9 H (36.0-66.0) % Immature Gran % (Auto) 0.2 (0.00-0.4) % Nucleat RBC Rel Count 0.0 (0.00-0.1) % Eos # (Auto) 0.03 (0-0.5) x10^3/uL Immature Gran # (Auto) 0.02 (0.00-0.03) x10^3u/L Absolute Lymphs (auto) 2.25 (1.0-4.6) x10^3/uL Absolute Monos (auto) 0.57 (0.0-1.3) x10^3/uL Absolute Nucleated RBC 0.00 (0.00-0.01) x10^3u/L Lymphocytes % 20.9 L (24.0-44.0) % Monocytes % 5.3 (0.0-12.0) % Eosinophils % 0.3 (0.00-5.0) % Basophils % 0.4 (0.0-0.4) % Absolute Granulocytes 7.83 H (1.4-6.9) x10^3/uL Basophils # 0.04 (0-0.4) x10^3/uL Sodium 139 (137-145) mmol/L Potassium 4.0 (3.5-5.1) mmol/L Chloride 103 (98-107) mmol/L Carbon Dioxide 29 (22-30) mmol/L Anion Gap 11.5 (5-15) MEQ/L BUN 11 (7-17) mg/dL Creatinine 0.62 (0.52-1.04) mg/dL Estimated GFR > 60.0 ML/MIN Glucose 90 (74-106) mg/dL Hemoglobin A1c (4.5-6.0) % Calcium 9.0 (8.4-10.2) mg/dL Total Bilirubin 0.40 (0.2-1.3) mg/dL AST 22 (14-36) U/L ALT 15 (0-35) U/L Alkaline Phosphatase 71 (38-126) U/L Serum Total Protein 8.0 (6.3-8.2) g/dL Albumin 4.4 (3.5-5.0) g/dL Triglycerides (30-150) mg/dL Cholesterol (50-200) mg/dL LDL Cholesterol (30-100) mg/dL HDL Cholesterol (40-60) mg/dL Heart Disease Risk Ratio Free T4 (0.78-2.19) ng/dL TSH 3rd Generation (0.47-4.68) mIU/L Urine Color Yellow (Yellow) Urine Appearance Cloudy A (Clear) Urine pH 7.0 (4.6-8.0) Ur Specific Michie 1.015 (1.005-1.030) Urine Protein Negative (Negative) Urine Glucose (UA) Negative (Negative) mg/dL Urine Ketones Negative (Negative) Urine Blood NHT (Negative) Urine Nitrite Negative (Negative) Urine Bilirubin Negative (Negative) Urine Urobilinogen 0.2 (0.2) mg/dL Ur Leukocyte Esterase Negative (Negative) U Hyaline Cast (Auto) NONE SEEN (0-2) /LPF Urine Microscopic RBC 0-2 (0-5) /HPF Urine Microscopic WBC 0-2 (0-5) /HPF Ur Epithelial Cells Rare (None Seen) /HPF Urine Bacteria None Seen (None Seen) /HPF Urine Culture Reflexed NO (NO) Urine HCG, Qual (NEGATIVE) 05/01/23 05/01/23 05/01/23 Range/Units 18:50 19:15 19:15 WBC (4.0-10.5) x10^3/uL RBC (4.1-5.4) x10^6/uL Hgb (12.0-16.0) g/dL Hct (35-47) % MCV (78-100) fL MCH (26-32) pg MCHC (32-36) g/dL RDW (11.5-14.0) % Plt Count (150-450) x10^3/uL MPV (7.5-11.0) fL Gran % (36.0-66.0) % Immature Gran % (Auto) (0.00-0.4) % Nucleat RBC Rel Count (0.00-0.1) % Eos # (Auto) (0-0.5) x10^3/uL Immature Gran # (Auto) (0.00-0.03) x10^3u/L Absolute Lymphs (auto) (1.0-4.6) x10^3/uL Absolute Monos (auto) (0.0-1.3) x10^3/uL Absolute Nucleated RBC (0.00-0.01) x10^3u/L Lymphocytes % (24.0-44.0) % Monocytes % (0.0-12.0) % Eosinophils % (0.00-5.0) % Basophils % (0.0-0.4) % Absolute Granulocytes (1.4-6.9) x10^3/uL Basophils # (0-0.4) x10^3/uL Sodium (137-145) mmol/L Potassium (3.5-5.1) mmol/L Chloride (98-107) mmol/L Carbon Dioxide (22-30) mmol/L Anion Gap (5-15) MEQ/L BUN (7-17) mg/dL Creatinine (0.52-1.04) mg/dL Estimated GFR ML/MIN Glucose (74-106) mg/dL Hemoglobin A1c 4.79 (4.5-6.0) % Calcium (8.4-10.2) mg/dL Total Bilirubin (0.2-1.3) mg/dL AST (14-36) U/L ALT (0-35) U/L Alkaline Phosphatase (38-126) U/L Serum Total Protein (6.3-8.2) g/dL Albumin (3.5-5.0) g/dL Triglycerides (30-150) mg/dL Cholesterol (50-200) mg/dL LDL Cholesterol (30-100) mg/dL HDL Cholesterol (40-60) mg/dL Heart Disease Risk Ratio Free T4 (0.78-2.19) ng/dL TSH 3rd Generation 0.401 L (0.47-4.68) mIU/L Urine Color (Yellow) Urine Appearance (Clear) Urine pH (4.6-8.0) Ur Specific Michie (1.005-1.030) Urine Protein (Negative) Urine Glucose (UA) (Negative) mg/dL Urine Ketones (Negative) Urine Blood (Negative) Urine Nitrite (Negative) Urine Bilirubin (Negative) Urine Urobilinogen (0.2) mg/dL Ur Leukocyte Esterase (Negative) U Hyaline Cast (Auto) (0-2) /LPF Urine Microscopic RBC (0-5) /HPF Urine Microscopic WBC (0-5) /HPF Ur Epithelial Cells (None Seen) /HPF Urine Bacteria (None Seen) /HPF Urine Culture Reflexed (NO) Urine HCG, Qual NEGATIVE (NEGATIVE) 05/02/23 05/02/23 05/02/23 Range/Units 04:23 04:43 04:43 WBC 9.2 (4.0-10.5) x10^3/uL RBC 4.83 (4.1-5.4) x10^6/uL Hgb 13.7 (12.0-16.0) g/dL Hct 40.6 (35-47) % MCV 84.1 (78-100) fL MCH 28.4 (26-32) pg MCHC 33.7 (32-36) g/dL RDW 13.4 (11.5-14.0) % Plt Count 267 (150-450) x10^3/uL MPV 11.4 H (7.5-11.0) fL Gran % 49.4 (36.0-66.0) % Immature Gran % (Auto) 0.1 (0.00-0.4) % Nucleat RBC Rel Count 0.0 (0.00-0.1) % Eos # (Auto) 0.18 (0-0.5) x10^3/uL Immature Gran # (Auto) 0.01 (0.00-0.03) x10^3u/L Absolute Lymphs (auto) 3.81 (1.0-4.6) x10^3/uL Absolute Monos (auto) 0.59 (0.0-1.3) x10^3/uL Absolute Nucleated RBC 0.00 (0.00-0.01) x10^3u/L Lymphocytes % 41.6 (24.0-44.0) % Monocytes % 6.4 (0.0-12.0) % Eosinophils % 2.0 (0.00-5.0) % Basophils % 0.5 (0.0-0.4) % Absolute Granulocytes 4.52 (1.4-6.9) x10^3/uL Basophils # 0.05 (0-0.4) x10^3/uL Sodium 139 (137-145) mmol/L Potassium 3.6 (3.5-5.1) mmol/L Chloride 106 (98-107) mmol/L Carbon Dioxide 23 (22-30) mmol/L Anion Gap 13.3 (5-15) MEQ/L BUN 12 (7-17) mg/dL Creatinine 0.60 (0.52-1.04) mg/dL Estimated GFR > 60.0 ML/MIN Glucose 94 (74-106) mg/dL Hemoglobin A1c (4.5-6.0) % Calcium 8.5 (8.4-10.2) mg/dL Total Bilirubin 0.50 (0.2-1.3) mg/dL AST 19 (14-36) U/L ALT 13 (0-35) U/L Alkaline Phosphatase 65 (38-126) U/L Serum Total Protein 7.1 (6.3-8.2) g/dL Albumin 4.0 (3.5-5.0) g/dL Triglycerides (30-150) mg/dL Cholesterol (50-200) mg/dL LDL Cholesterol (30-100) mg/dL HDL Cholesterol (40-60) mg/dL Heart Disease Risk Ratio Free T4 1.05 (0.78-2.19) ng/dL TSH 3rd Generation (0.47-4.68) mIU/L Urine Color (Yellow) Urine Appearance (Clear) Urine pH (4.6-8.0) Ur Specific Michie (1.005-1.030) Urine Protein (Negative) Urine Glucose (UA) (Negative) mg/dL Urine Ketones (Negative) Urine Blood (Negative) Urine Nitrite (Negative) Urine Bilirubin (Negative) Urine Urobilinogen (0.2) mg/dL Ur Leukocyte Esterase (Negative) U Hyaline Cast (Auto) (0-2) /LPF Urine Microscopic RBC (0-5) /HPF Urine Microscopic WBC (0-5) /HPF Ur Epithelial Cells (None Seen) /HPF Urine Bacteria (None Seen) /HPF Urine Culture Reflexed (NO) Urine HCG, Qual (NEGATIVE) 05/02/23 Range/Units 04:43 WBC (4.0-10.5) x10^3/uL RBC (4.1-5.4) x10^6/uL Hgb (12.0-16.0) g/dL Hct (35-47) % MCV (78-100) fL MCH (26-32) pg MCHC (32-36) g/dL RDW (11.5-14.0) % Plt Count (150-450) x10^3/uL MPV (7.5-11.0) fL Gran % (36.0-66.0) % Immature Gran % (Auto) (0.00-0.4) % Nucleat RBC Rel Count (0.00-0.1) % Eos # (Auto) (0-0.5) x10^3/uL Immature Gran # (Auto) (0.00-0.03) x10^3u/L Absolute Lymphs (auto) (1.0-4.6) x10^3/uL Absolute Monos (auto) (0.0-1.3) x10^3/uL Absolute Nucleated RBC (0.00-0.01) x10^3u/L Lymphocytes % (24.0-44.0) % Monocytes % (0.0-12.0) % Eosinophils % (0.00-5.0) % Basophils % (0.0-0.4) % Absolute Granulocytes (1.4-6.9) x10^3/uL Basophils # (0-0.4) x10^3/uL Sodium (137-145) mmol/L Potassium (3.5-5.1) mmol/L Chloride (98-107) mmol/L Carbon Dioxide (22-30) mmol/L Anion Gap (5-15) MEQ/L BUN (7-17) mg/dL Creatinine (0.52-1.04) mg/dL Estimated GFR ML/MIN Glucose (74-106) mg/dL Hemoglobin A1c (4.5-6.0) % Calcium (8.4-10.2) mg/dL Total Bilirubin (0.2-1.3) mg/dL AST (14-36) U/L ALT (0-35) U/L Alkaline Phosphatase (38-126) U/L Serum Total Protein (6.3-8.2) g/dL Albumin (3.5-5.0) g/dL Triglycerides 162 H (30-150) mg/dL Cholesterol 165 (50-200) mg/dL LDL Cholesterol 93 (30-100) mg/dL HDL Cholesterol 35 L (40-60) mg/dL Heart Disease Risk Ratio 4.7 Free T4 (0.78-2.19) ng/dL TSH 3rd Generation (0.47-4.68) mIU/L Urine Color (Yellow) Urine Appearance (Clear) Urine pH (4.6-8.0) Ur Specific Michie (1.005-1.030) Urine Protein (Negative) Urine Glucose (UA) (Negative) mg/dL Urine Ketones (Negative) Urine Blood (Negative) Urine Nitrite (Negative) Urine Bilirubin (Negative) Urine Urobilinogen (0.2) mg/dL Ur Leukocyte Esterase (Negative) U Hyaline Cast (Auto) (0-2) /LPF Urine Microscopic RBC (0-5) /HPF Urine Microscopic WBC (0-5) /HPF Ur Epithelial Cells (None Seen) /HPF Urine Bacteria (None Seen) /HPF Urine Culture Reflexed (NO) Urine HCG, Qual (NEGATIVE) - Radiology Exams Ordered Rad Exams-Entire Visit: Radiology Procedures Category Date Time Status ECHO W/2D AND DOPPLER [US] Stat Exams 05/02/23 08:00 Taken HEAD WITHOUT CONTRAST [CT] Stat Exams 05/01/23 17:53 Completed MRA BRAIN WITHOUT CONTRAST [MRI] Stat Exams 05/02/23 08:30 Completed MRA NECK WITH CONTRAST [MRI] Stat Exams 05/02/23 09:00 Completed MRI BRAIN W/O CONTRAST [MRI] Stat Exams 05/02/23 09:30 Completed Discharge Exam General Appearance: no apparent distress Neurologic Exam: alert, 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, facial droop (mild) Neck Exam: normal inspection Respiratory Exam: normal breath sounds, lungs clear Gastrointestinal/Abdomen Exam: soft, normal bowel sounds Extremity Exam: normal inspection Skin Exam: normal color Final Diagnosis/Problem List - Final Discharge Diagnosis/Problem (1) Facial droop Current Visit: Yes Status: Acute Code(s): R29.810 - FACIAL WEAKNESS (2) History of CVA (cerebrovascular accident) Current Visit: Yes Status: Chronic Code(s): Z86.73 - PRSNL HX OF TIA (TIA), AND CEREB INFRC W/O RESID DEFICITS (3) Leukocytosis Current Visit: Yes Status: Resolved Code(s): D72.829 - ELEVATED WHITE BLOOD CELL COUNT, UNSPECIFIED Telemedicine Encounter - Telemedicine Encounter Telemedicine Encounter: The entirety of this encounter was performed via Telemedicine" - Discharge Condition: Stable Prescriptions: New Atorvastatin Calcium 80 mg PO DAILY 30 Days #30 tablet Aspirin EC 81 mg [Ecotrin 81 mg] 81 mg PO DAILY 30 Days #30 tablet Continue Sertraline HCl [Zoloft] 1 tab PO HS Instructions: Stroke (DC) Follow up with: MUNA LANTIGUA MD [Primary Care Provider] - 05/12/23 10:45 am
[2023-05-02] MEDS ORDERED: ZOLOFT 50 MG TABLET PO SCH (22:00)
--- NOTE | 2023-05-05 09:05 | ECHO ---
Transthoracic echocardiographic examination and color Doppler was done on 05/02/2023. INDICATION: Possible stroke. IMPRESSION: 1) NO DEFINITE REGIONAL WALL MOTION ABNORMALITY. ESTIMATED GLOBAL LEFT VENTRICULAR EJECTION FRACTION BETWEEN 50 TO 55%. 2) TRACE MITRAL REGURGITATION. 3) TRACE TRICUSPID REGURGITATION. RIGHT VENTRICULAR SYSTOLIC PRESSURE OF 37 MM OF MERCURY. 4) MILD LEFT VENTRICULAR HYPERTROPHY. The left ventricle is visualized and demonstrated adequate motion of all the segments. Estimated global left ventricular ejection fraction between 50 to 55%. There is mild left ventricular hypertrophy. The mitral valve is seen and this opens adequately. There is trace mitral regurgitation. Left atrium is normal. The aortic valve opens adequately. There is no significant gradient across the left ventricular outflow tract. The right side chambers are normal. There is normal right ventricular contractility. There is trace tricuspid regurgitation. The right ventricular systolic pressure of 37 mm of Mercury. There is trace pulmonic insufficiency.
== END 2023-05-02 16:00 | disposition home or self-care (01) ==
LOC: ED 17:42 → MED SURG 21:52
PROVIDERS: ADMIT Internal Medicine; ATTEND Internal Medicine
DX: R29.810 Facial weakness (principal); Z86.73 Personal history of transient ischemic attack (TIA), and cerebral infarction without residual deficits; D72.829 Elevated white blood cell count, unspecified; F32.A Depression, unspecified; Z79.899 Other long term (current) drug therapy; Z20.828 Contact with and (suspected) exposure to other viral communicable diseases
CPT/HCPCS: 36000; 36415; 70450; 70544; 70548; 70551; 80053; 80061; 81001; 81025; 83036; 83721; 84439; 84443; 85025; 93005; 93041; 93306; 94760; 99285; G0378; J1650; Q3014; A9270-GY